=== PATIENT | female | born 1935 | race African-American/Black ===

== ENCOUNTER 2016-03-08 15:35 | Inpatient (IN) | payer OTHER, MEDICARE ==
[~2016-03-08] VITALS: Ht 162.6 cm; Wt 56.8 kg
[~2016-03-08 15:35] MED LIST: AMLO10 PO; AZOP1SUS BOTH EYES; DILT-XR PO; GLUCTAB PO; LORT5TAB PO; LOSA25TA31 PO; PROT40TA PO; ST JTAB PO; TOBRA.3%O LEFT EYE; ZOVI800T13 PO
[2016-03-08 15:38] VITALS: BP 189/83; PULSE 73; RESP 12; TEMP 97.9; O2SAT 94
[2016-03-08 16:33] VITALS: BP 160/72; PULSE 15; PULSE 72; RESP 15; RESP 16; O2SAT 98
--- NOTE | 2016-03-08 17:20 | PD ---
HPI Chief Complaint: Diabetic Time Seen by Provider: 17:12 Travel History International Travel<30 days: No Contact w/Intl Traveler<30days: No Traveled to known affect area: No History of Present Illness HPI Patient is a 80-year-old female with history of diabetes, CAD, hypertension presenting with chief complaint of dizziness. She reports multiple complaints last 2 days that she correlates to her glucose and elevated blood pressure. She states she has been unsteady on her feet and feels lightheaded like she might pass out, denies syncope. This does seem to be related to positional change. She feels like when she walks she tends to lean towards the right however she has opacity in her left thigh from shingles chronically which she thinks is related. She denies vertiginous-like symptoms, nausea and vomiting. She's had 2 episodes of brief nonexertional left-sided chest pain today which she denies is exertional. She denies fever, cough and shortness of breath. She takes long-acting insulin at night since her last 85. This morning it was 89 and she took it that she felt bad and states it was 270. She did not take additional insulin however glucose here is 89 by fingerstick. She has been compliant with her blood pressure medicines states blood pressure is 170/110 when she felt dizzy as well. She denies any current symptoms but states when she first arrived at the ED she was lightheaded. PFSH Past Medical History Arthritis: Yes Anxiety: Yes Cancer: Yes (POSSIBLE OVARIAN CANCER) Cardiovascular Problems: Yes High Cholesterol: Yes Diabetes: Yes Patient Takes Glucophage: No Endocrine: Yes (PARATHYROID DISEASE) GERD: Yes Genitourinary: Yes Hypertension: Yes Immune Disorder: No Kidney Stones: Yes Musculoskeletal: Yes Neurologic: Yes (SLOW BLEED TO LEFT HEAD) Psychiatric: Yes Shingles: Yes ?: Not Past Surgical History Appendectomy: Yes Cardiac Surgery: Yes (CABG 1997) Cholecystectomy: Yes Coronary Artery Bypass Graft: Yes Genitourinary Surgery: Yes (KIDNEY STONE REMOVED) Gynecologic Surgery: Yes (HYSTERECTOMY 1973) Hysterectomy: Yes Social History Alcohol Use: No Tobacco Use: No Substance Use: No Allergies-Medications (Allergen,Severity, Reaction): Coded Allergies: Penicillin (Verified Allergy, Severe, Rash, SOB, 03/08/16) Reported Meds & Prescriptions Reported Meds & Active Scripts Active Reported Aspirin Adult Low Strength (Aspirin) 81 Mg Tabdr 81 Mg PO DAILY Stool Softener (Docusate Sodium) 100 Mg Cap 1 Cap PO DAILY Tobrex Opth Oint (Tobramycin Sulfate) 0.3 % Oint 1 Applic LEFT EYE TID Dorzolamide-Timolol Opth Drops 22.3-6.8 Mg/Ml Soln 1 Drop LEFT EYE BID Travatan Z Opth Drops (Travoprost) 0.004 % Soln 1 Drop EACH EYE HS Gabapentin 100 Mg Cap 100 Mg PO TID Nitrostat SL (Nitroglycerin) 0.4 Mg Subl 0.4 Mg SL DIRECTED PRN 1 tablet under the tongue as needed for chest pain. Repeat every 5 minutes for a total of 3 DOSES or call 911 if NO relief. Nitro-Dur Patch 24 HR (Nitroglycerin) 0.1 Mg/Hr Patch 0.1 Mg T-DERMAL DAILY Toprol XL (Metoprolol Succinate) 25 Mg Tab 25 Mg PO DAILY Tizanidine (Tizanidine HCl) 4 Mg Tab 4 Mg PO HS Pantoprazole (Pantoprazole Sodium) 40 Mg Tab 40 Mg PO DAILY Metformin (Metformin HCl) 500 Mg Tab 500 Mg PO BID With meals Lovastatin 40 Mg Tab 40 Mg PO BID Lasix (Furosemide) 20 Mg Tab 20 Mg PO DAILY Amlodipine (Amlodipine Besylate) 10 Mg Tab 10 Mg PO DAILY Fosamax (Alendronate Sodium) 70 Mg Tab 70 Mg PO WEEKLY Review of Systems Except as stated in HPI: all other systems reviewed are Neg Physical Exam Narrative GENERAL: Well-developed and well-nourished adult female in no acute distress. SKIN: Warm and dry. Good turgor without tenting. HEAD: Normocephalic and atraumatic. EYES: Right pupil 4 mm and reactive. Left cornea has opacity overlying the pupil. EOMI bilaterally. No injection or icterus present. No proptosis. Lids without edema or erythema. ENT: Buccal mucosa pink and moist. Oropharynx free of erythema, tonsillar hypertrophy, masses, swelling, asymmetry and exudates. Uvula midline and airway patent. NECK: Supple, no midline tenderness, crepitus or step-offs. Trachea midline, no JVD. No cervical or facial lymphadenopathy. CARDIOVASCULAR: Regular rate and rhythm 2/6 early systolic ejection murmur heard best at the right upper sternal border but throughout the precordium. No rubs, clicks or gallops. Radial and posterior tibial pulses 2+ bilaterally. Trace pedal edema bilaterally. RESPIRATORY: Clear to auscultation bilaterally with symmetrical rise and fall, no distress or use of accessory muscles. GASTROINTESTINAL: Non-tender, non-distended. Normal bowel sounds all 4 quadrants. No masses or organomegaly present. MUSCULOSKELETAL: Patient freely moving all four extremities spontaneously. Extremities without clubbing, cyanosis, or edema. No obvious deformities. NEUROLOGIC: CN II-XII grossly intact. Awake and alert. Negative pronator drift. Maciel and accurate finger to nose testing bilaterally. Strength 5/5 bilateral shoulder flexion, shoulder extension, shoulder abduction, shoulder adduction, elbow flexion, elbow extension. Sensation intact and strength 5/5 over radial, median, and ulnar nerve distributions bilaterally.Sensation intact L2-S2 bilaterally. Strength 5/5 in hip flexion, hip extension, knee flexion, knee extension, plantar flexion, dorsiflexion bilaterally. Bilateral biceps, brachioradialis, patellar and Achilles DTRs 2+.Normal speech. PSYCHIATRIC: Appropriate mood and affect; insight and judgment normal. Data Data Last Documented VS Vital Signs Date Time Temp Pulse Resp B/P Pulse Ox O2 Delivery O2 Flow Rate FiO2 03/08/16 18:45 69 15 174/67 67 16 184/83 03/08/16 18:40 97 Room Air 03/08/16 15:38 97.9 Orders Complete Blood Count With Diff (03/09/16 06:00) Prothrombin Time / Inr (Pt) (03/08/16 15:44) Electrocardiogram (03/08/16 15:44) Comprehensive Metabolic Panel (03/08/16 16:05) B-Type Natriuretic Peptide (03/08/16 16:52) Chest, Single Ap (03/08/16 17:08) Ecg Monitoring (03/08/16 17:08) Bilateral Bp Monitoring (03/08/16 17:08) Iv Access Insert/Monitor (03/08/16 17:08) Urinalysis - C+S If Indicated (03/08/16 17:08) Ct Brain W/O Iv Contrast(Rout) (03/08/16 17:11) Orthostatic Vital Signs (03/08/16 17:11) Magnesium (Mg) (03/08/16 16:55) Troponin I (03/08/16 16:55) Complete Blood Count With Diff (03/08/16 18:10) Amlodipine (Norvasc) (03/08/16 18:15) Admit Order (Ed Use Only) (03/08/16 18:39) Labs Laboratory Tests Test 03/08/16 16:55 White Blood Count 32.0 TH/MM3 Red Blood Count 2.90 MIL/MM3 Hemoglobin 9.1 GM/DL Hematocrit 29.2 % Mean Corpuscular Volume 100.7 FL Mean Corpuscular Hemoglobin 31.5 PG Mean Corpuscular Hemoglobin 31.3 % Concent Red Cell Distribution Width 17.2 % Platelet Count 86 TH/MM3 Mean Platelet Volume 10.1 FL Neutrophils (%) (Auto) % Lymphocytes (%) (Auto) % Monocytes (%) (Auto) % Eosinophils (%) (Auto) % Basophils (%) (Auto) % Neutrophils # (Auto) TH/MM3 Lymphocytes # (Auto) TH/MM3 Monocytes # (Auto) TH/MM3 Eosinophils # (Auto) TH/MM3 Basophils # (Auto) TH/MM3 CBC Comment AUTO DIFF Prothrombin Time 10.7 SEC Prothromb Time International 1.0 RATIO Ratio Sodium Level 141 MEQ/L Potassium Level 4.2 MEQ/L Chloride Level 107 MEQ/L Carbon Dioxide Level 26.8 MEQ/L Anion Gap 7 MEQ/L Blood Urea Nitrogen 14 MG/DL Creatinine 0.85 MG/DL Estimat Glomerular Filtration 77 ML/MIN Rate Random Glucose 102 MG/DL Calcium Level 10.5 MG/DL Magnesium Level 2.1 MG/DL Total Bilirubin 0.6 MG/DL Aspartate Amino Transf 24 U/L (AST/SGOT) Alanine Aminotransferase 20 U/L (ALT/SGPT) Alkaline Phosphatase 129 U/L Troponin I 0.11 NG/ML B-Type Natriuretic Peptide 321 PG/ML Total Protein 7.5 GM/DL Albumin 3.1 GM/DL [facility] Medical Decision Making Medical Screen Exam Complete: Yes Emergency Medical Condition: Yes Interpretation(s) EKG: Sinus rhythm with rate of 67 with first-degree AV block. Otherwise normal intervals. Normal axis. Patient has inverted T waves in leads V2, V4, V5, V6 and flattened T waves in V3. This is new when compared to 2010 EKG. Laboratory Tests Test 03/08/16 16:55 Prothrombin Time 10.7 SEC (9.8-11.6) Prothromb Time International 1.0 RATIO Ratio Sodium Level 141 MEQ/L (136-145) Potassium Level 4.2 MEQ/L (3.5-5.1) Chloride Level 107 MEQ/L (98-107) Carbon Dioxide Level 26.8 MEQ/L (21.0-32.0) Anion Gap 7 MEQ/L (5-15) Blood Urea Nitrogen 14 MG/DL (7-18) Creatinine 0.85 MG/DL (0.50-1.00) Estimat Glomerular Filtration 77 ML/MIN (>89) Rate Random Glucose 102 MG/DL (74-106) Calcium Level 10.5 MG/DL (8.5-10.1) Magnesium Level 2.1 MG/DL (1.5-2.5) Total Bilirubin 0.6 MG/DL (0.2-1.0) Aspartate Amino Transf 24 U/L (15-37) (AST/SGOT) Alanine Aminotransferase 20 U/L (10-53) (ALT/SGPT) Alkaline Phosphatase 129 U/L (45-117) Troponin I 0.11 NG/ML (0.02-0.05) B-Type Natriuretic Peptide 321 PG/ML (0-100) Total Protein 7.5 GM/DL (6.4-8.2) Albumin 3.1 GM/DL (3.4-5.0) Differential Diagnosis Hypoglycemia versus hyperglycemia versus hypertensive urgency versus CVA versus ACS versus CHF Narrative Course Patient is a 1-year-old female with a history of diabetes, CAD. Hypertension presenting with multiple complaints. She states that today she has felt tired, had presyncopal episodes which did appear to be positional, has an leaning towards the right when walking and sensory episodes of brief nonexertional chest pain earlier. She is on nitroglycerin patch. She denies any fever or infectious symptoms or dyspnea. She states her blood pressure was elevated and her glucose was originally 89 and then 270 this morning which caused her symptoms as well. Glucose 89 by fingerstick. Blood pressure 160/70s. Is a history of intracranial bleed per the chart, is on daily aspirin but not on anticoagulants. Ordered CT of the head, chest x-ray, EKG and labs. EKG does not show any ST elevation but does show some T-wave inversion and flattening. Chest x-ray and CT of the chest unremarkable other than borderline cardiomegaly. Troponin elevated at 0.11. Systolic was 183 on a repeat BP alert amlodipine 5 mg however repeat blood pressure was in the 150s systolic. Patient has been asymptomatic while here. Patient was discussed with Dr. Tejada who agrees that she should be admitted. Report was given to Dr. Todd who accepted the admission. There was a issue from labs ordered and triage/ protocol and the CBC was very delayed and returning. Abdomen the patient had been admitted to CBC did finally results and shows a WBC of 32, platelets 86, H& H 9.1/29.2. Patient does have a history of anemia and last labs in 2010 show a chronic leukocytosis but no diagnosis. I went to speak with the patient and her daughter had arrived fortunately and states that she sees Dr. Lynn and has a diagnosis of lymphoma, has declined chemotherapy. She states she was in [facility] on [address]. We are to be to obtain records. UA pending, added lactic acid and blood cultures. Spoke with Dr. Lane who took over for Dr. Todd so she was aware of this development. This patient is afebrile, nontoxic, does not have a tachycardia or systemic complaints will let the admitting physician to determine if antibiotics are warranted unless urinary lactic acid comes back and indicates a need. Diagnosis Primary Impression: Weakness generalized Additional Impression: Elevated troponin Admitting Information Admitting Physician Requests: Admit Condition: Stable Giovanny Cleveland III Mar 08, 2016 17:19
[2016-03-08 17:27] LABS: PROTHROMBIN TIME - PATIENT 10.7 SEC (9.8-11.6)
[2016-03-08 17:38] LABS: ALT (GPT) 20 U/L (10-53); ANION GAP 7 MEQ/L (5-15); AST (GOT) 24 U/L (15-37); BICARBONATE 26.8 MEQ/L (21.0-32.0); BLOOD UREA NITROGEN 14 MG/DL (7-18); CHLORIDE 107 MEQ/L (98-107); GLOMERULAR FILTRATION RATE 77 ML/MIN (>89); MAGNESIUM 2.1 MG/DL (1.5-2.5); POTASSIUM 4.2 MEQ/L (3.5-5.1); SODIUM (NA) 141 MEQ/L (136-145)
[2016-03-08 17:42] LABS: ALKALINE PHOSPHATASE 129 U/L (45-117); TOTAL BILIRUBIN ADULT 0.6 MG/DL (0.2-1.0)
--- NOTE | 2016-03-08 17:43 | RADRPT ---
EXAM DATE/TIME: 03/08/2016 17:12 [facility] COMPARISON: No previous studies available for comparison. INDICATIONS : Chest pain and general weakness. MEDICAL HISTORY : Hypertension. Diabetes mellitus type II. SURGICAL HISTORY : CABG. ENCOUNTER: Initial ACUITY: 2 days PAIN SCORE: 2/10 LOCATION: Bilateral chest FINDINGS: Trace bibasilar atelectasis. No lobar consolidation. No pleural effusion or pneumothorax. Borderline cardiomegaly. Thoracic aorta is tortuous and atherosclerotic. Patient has had previous med opal sternotomy and CABG. CONCLUSION: Trace bibasilar atelectasis and borderline cardiomegaly. Previous CABG. Giovanny Belcher MD on March 08, 2016 at 17:41 Board Certified Radiologist. This report was verified electronically.
--- NOTE | 2016-03-08 17:44 | RADRPT ---
EXAM DATE/TIME: 03/08/2016 17:33 [facility] COMPARISON: CT BRAIN W/O CONTRAST, January 12, 2011, 15:37. INDICATIONS : Dizziness. RADIATION DOSE: 38.13 CTDIvol (mGy) MEDICAL HISTORY : Cerebrovascular disease. Hypertension. Diabetes mellitus type 2.Ovarian cacner SURGICAL HISTORY : None. ENCOUNTER: Initial ACUITY: 1 day PAIN SCALE: 2/10 LOCATION: cranial TECHNIQUE: Multiple contiguous axial images were obtained of the head. Using automated exposure control and adj ustment of the mA and/or kV according to patient size, radiation dose was kept as low as reasonably a chievable to obtain optimal diagnostic quality images. FINDINGS: CEREBRUM: The ventricles are normal for age. No evidence of midline shift, mass lesion, hemorrhage or acute in farction. No extra-axial fluid collections are seen. Atrophy again noted. POSTERIOR FOSSA: The cerebellum and brainstem are intact. The 4th ventricle is midline. The cerebellopontine angle i s unremarkable. EXTRACRANIAL: The visualized portion of the orbits is intact. SKULL: The calvaria is intact. No evidence of skull fracture. CONCLUSION: No acute intracranial abnormality. Giovanny Belcher MD on March 08, 2016 at 17:42 Board Certified Radiologist. This report was verified electronically.
[2016-03-08] MEDS ORDERED: LOVA40TA PO (17:59)
[2016-03-08] MEDS ORDERED: DORZ2SOL15 LEFT EYE (17:59)
[2016-03-08] MEDS ORDERED: FURO1TAB62 PO (17:59)
[2016-03-08] MEDS ORDERED: FOSA70TA PO (17:59)
[2016-03-08] MEDS ORDERED: GABA100C4 PO (17:59)
[2016-03-08] MEDS ORDERED: TOPR25TA PO (17:59)
[2016-03-08] MEDS ORDERED: TIZA4TAB PO (17:59)
[2016-03-08] MEDS ORDERED: AMLO10TA2 PO (17:59)
[2016-03-08] MEDS ORDERED: METF500T PO (17:59)
[2016-03-08] MEDS ORDERED: TRAV0.00 EACH EYE (17:59)
[2016-03-08] MEDS ORDERED: NITR0.4S SL (17:59)
[2016-03-08] MEDS ORDERED: ASPI1TAB91 PO (17:59)
[2016-03-08] MEDS ORDERED: NITR0.1D T-DERMAL (17:59)
[2016-03-08] MEDS ORDERED: PANT40TA3 PO (17:59)
[2016-03-08] MEDS ORDERED: STOO100C PO (17:59)
[2016-03-08] MEDS ORDERED: TOBR.3%O LEFT EYE (17:59)
[2016-03-08] MEDS ORDERED: amLODIPine BESYLATE 5 MG TAB PO ONE (18:15)
[2016-03-08 18:40] VITALS: BP_SYST 153; BP_SYST 162; BP_DIAS 71; BP_DIAS 74; BP_DIAS 81; PULSE 67; PULSE 68; RESP 15; RESP 16; O2SAT 97
[2016-03-08 18:45] VITALS: BP_SYST 174; BP_SYST 184; BP_DIAS 67; BP_DIAS 83; RESP 15; RESP 16
[2016-03-08 18:50] LABS: HEMATOCRIT 29.2 % (35.0-46.0); MEAN CELL VOLUME 100.7 FL (80.0-100.0); MEAN CORPUSCULAR HEMOGLOBIN 31.5 PG (27.0-34.0); MEAN CORPUSCULAR HGB CONC 31.3 % (32.0-36.0); PLATELET COUNT 86 TH/MM3 (150-450); RED CELL DISTRIBUTION WIDTH 17.2 % (11.6-17.2)
[2016-03-08 18:52] LABS: HEMO FLAGS AUTO DIFF
[2016-03-08 20:12] LABS: BLOOD, URINE TRACE (NEG); COMMENT (UR) CULTURE INDICATED; CULTURE IF INDICATED CULTURE INDICATED; GLUCOSE,URINE NEG (NEG); KETONE, URINE NEG (NEG); NITRITE,URINE NEG (NEG); URINE COLOR LIGHT-YELLOW (YELLW/STRAW)
[2016-03-08] MEDS ORDERED: ONDANSETRON HCL 4 MG/2 ML VIAL IVP PRN (20:15)
[2016-03-08] MEDS ORDERED: GLUCAGON 1 MG/ML VIAL OTHER PRN (20:15)
[2016-03-08] MEDS ORDERED: SODIUM CHLORIDE 0.9% FLUSH 5 ML FLUSH FLUSH PRN (20:15)
[2016-03-08] MEDS ORDERED: DEXTROSE 50% IN WATER 50 ML VIAL(D50) IV PUSH PRN (20:15)
[2016-03-08] MEDS ORDERED: NALOXONE HCL 0.4 MG/ML AMP IV PRN (20:15)
[2016-03-08 20:30] VITALS: BP 150/70; PULSE 62; RESP 16; O2SAT 99
[2016-03-08] MEDS: INSULIN ASPART SUPPLEMENTAL SCALE SQ SCH (20:43)
[2016-03-08] MEDS ORDERED: LEVOFLOXACIN 750 MG TAB PO ONE (21:00)
[2016-03-08 21:07] LABS: CORRECTED NUCLEATED RBC 1 /100 WBC (0-0); EOSINOPHILS 1 % (0-4); NEUTROPHIL # MANUAL DIFF 2.9 TH/MM3 (1.8-7.7); PLATELET ESTIMATE SMEAR LOW (NORMAL); PLATELET MORPHOLOGY NORMAL (NORMAL); POLYS (SEG NEUTROPHILS) 9 % (16-70); WBC DIFF SAMPLE 100
[2016-03-08 21:08] LABS: SCAN/DIFF FINAL DIFF MANUAL; SMUDGE CELLS PRESENT PRESENT
[2016-03-08 21:10] VITALS: BP 154/71; PULSE 65; RESP 18; TEMP 97.8; O2SAT 94
--- NOTE | 2016-03-08 22:09 | HHI.HP ---
HPI Service [facility] Primary Care Physician Fadumo Sagastume MD Admission Diagnosis WEAKNESS, ELEVATED TROPONIN Diagnoses: Chief Complaint: Weakness, dizziness, shortness of breath Travel History International Travel<30 Days: No Contact w/Intl Traveler <30 Da: No Traveled to Known Affected Are: No History of Present Illness History from patient with her daughter at the bedside. Patient reported that for the past few days, she has been having wooziness and dizziness. She states she did not fall. She did not pass out. However she felt as if she would. She denies vomiting but was nauseous. However her main complaint is that of shortness of breath. Daughter at the bedside stated that this shortness of breath has been going on for a few weeks now. Patient denies fever. Denies cough. Reports of peripheral edema. Patient also states that she finally decided to come to hospital because her blood sugars have been high. 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 She also reports of high blood pressure at home. Again stated her blood pressure in the morning is around 120 systolic. However as the day goes by it was 200s systolic. Daughter at the bedside also stated that patient was diagnosed with lymphoma by Dr. Lynn. He did obtain bone marrow biopsy. However there was no treatment needed at that time. He now has left the [facility] practice and is only practicing at [place] and he has referred her to see [facility]. stated patient for the past few weeks is also becoming more symptomatic with shortness of breath, weakness, night sweats. She is unsure whether the actual disease is lymphoma or CLL. Patient otherwise lives by herself. She usually gets her meals cooked by her daughter on a weekly basis. Otherwise she still does her own laundry. Ambulates without assistance. Review of Systems Constitutional: COMPLAINS OF: Fatigue, Dizziness, Night Sweats, DENIES: Diaphoretic episodes, Fever, Weight gain, Weight loss, Chills Respiratory: COMPLAINS OF: Shortness of breath, DENIES: Apneas, Cough, Wheezing, Hemoptysis, Sputum production Cardiovascular: COMPLAINS OF: Dyspnea on Exertion, Lower Extremity Edema, Orthopnea, DENIES: Chest pain, Palpitations, Syncope, PND Gastrointestinal: DENIES: Abdominal pain, Black stools, Bloody stools, Constipation, Diarrhea, Nausea, Vomiting Genitourinary: DENIES: Urinary frequency, Urinary incontinence, Urgency, Hematuria, Dysuria, Nocturia Hematologic/lymphatic: DENIES: Bruising Neurologic: DENIES: Abnormal gait, Headache, Localized weakness, Paresthesias, Seizures, Speech Problems, Tremor, Poor Balance Past Family Social History Past Medical History Hypertension Diabetes CADstatus post CABG in 1997 Carotid artery stenosis History of lymphoma versus leukemia. 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 History of renal stones History of left eye damage from herpes zoster ophthalmicus History of and complete bladder emptying Past Surgical History Coronary angiogram CABG Cholecystectomy Appendectomy Hysterectomy Reported Medications Patient's medications list are reviewed. Patient also has a list with her. This was reviewed. Allergies: Coded Allergies: Penicillin (Verified Allergy, Severe, Rash, SOB, 03/08/16) Family History Denies family history of any medical issues that she knows of Social History Denies smoking. Denies any alcohol abuse or drug abuse. Lives by herself. Daughter would cook for her and bringing food. Ambulatory without assistance. Physical Exam Vital Signs Vital Signs Date Time Temp Pulse Resp B/P Pulse Ox O2 Delivery O2 Flow Rate FiO2 03/08/16 20:30 62 16 150/70 99 Room Air 03/08/16 18:45 69 15 174/67 67 16 184/83 03/08/16 18:40 68 15 153/71 97 Room Air 162/74 03/08/16 18:40 67 16 153/81 97 Room Air 03/08/16 16:36 22 97 Room Air 03/08/16 16:33 72 15 160/72 98 Room Air 03/08/16 15:38 97.9 73 12 189/83 94 Room Air Physical Exam GENERAL: This is a well-nourished, well-developed patient, in no apparent distress. SKIN: No rashes, ecchymoses or lesions. Cool and dry. HEAD: Atraumatic. Normocephalic. No temporal or scalp tenderness. EYES: No scleral icterus. No injection or drainage. ENT: Nose without bleeding, purulent drainage or septal hematoma. Airway patent. NECK: Trachea midline. No JVD Supple, nontender, no meningeal signs. CARDIOVASCULAR: Regular rate and rhythm without murmurs, gallops, or rubs. RESPIRATORY: Bilateral basilar crepitations. GASTROINTESTINAL: Abdomen soft, non-tender, nondistended. MUSCULOSKELETAL: Extremities without clubbing, cyanosis, or edema. . No calf tenderness NEUROLOGICAL: Awake and alert. Motor and sensory grossly within normal limits. Normal speech. Laboratory Laboratory Tests Test 03/08/16 03/08/16 03/08/16 16:55 19:46 20:03 White Blood Count 32.0 Red Blood Count 2.90 Hemoglobin 9.1 Hematocrit 29.2 Mean Corpuscular Volume 100.7 Mean Corpuscular Hemoglobin 31.5 Mean Corpuscular Hemoglobin 31.3 Concent Red Cell Distribution Width 17.2 Platelet Count 86 Mean Platelet Volume 10.1 Neutrophils (%) (Auto) Lymphocytes (%) (Auto) Monocytes (%) (Auto) Eosinophils (%) (Auto) Basophils (%) (Auto) Neutrophils # (Auto) Lymphocytes # (Auto) Monocytes # (Auto) Eosinophils # (Auto) Basophils # (Auto) CBC Comment AUTO DIFF Differential Total Cells 100 Counted Neutrophils % (Manual) 9 Lymphocytes % 90 Eosinophils % 1 Neutrophils # (Manual) 2.9 Nucleated Red Blood Cells 1 Differential Comment FINAL DIFF MANUAL Smudge Cells PRESENT Platelet Estimate LOW Platelet Morphology Comment NORMAL Red Cell Morphology Comment NORMAL Prothrombin Time 10.7 Prothromb Time International 1.0 Ratio Sodium Level 141 Potassium Level 4.2 Chloride Level 107 Carbon Dioxide Level 26.8 Anion Gap 7 Blood Urea Nitrogen 14 Creatinine 0.85 Estimat Glomerular Filtration 77 Rate Random Glucose 102 Calcium Level 10.5 Magnesium Level 2.1 Total Bilirubin 0.6 Aspartate Amino Transf 24 (AST/SGOT) Alanine Aminotransferase 20 (ALT/SGPT) Alkaline Phosphatase 129 Troponin I 0.11 B-Type Natriuretic Peptide 321 Total Protein 7.5 Albumin 3.1 Lactic Acid Level 1.3 Urine Color LIGHT-YELLOW Urine Turbidity CLEAR Urine pH 7.0 Urine Specific [place] 1.004 Urine Protein NEG Urine Glucose (UA) NEG Urine Ketones NEG Urine Occult Blood TRACE Urine Nitrite NEG Urine Bilirubin NEG Urine Urobilinogen LESS THAN 2.0 Urine Leukocyte Esterase LARGE Urine RBC 1 Urine WBC 39 Microscopic Urinalysis Comment CULTURE INDICATED Date/Time Procedure Status Source Growth 03/08/16 20:03 Urine Culture Received Urine Clean Catch Pending 03/08/16 19:46 Aerobic Blood Culture Received Blood Peripheral Pending 03/08/16 19:46 Anaerobic Blood Culture Received Blood Peripheral Pending Result Diagram: 03/08/16 1655 03/08/16 1655 Imaging Last [address] 03/08/16 1711 Signed Impressions: Service Date/Time: Tuesday, March 08, 2016 17:33 - CONCLUSION: No acute intracranial abnormality. Giovanny Belcher MD Chest X-Ray 03/08/16 1708 Signed Impressions: Service Date/Time: Tuesday, March 08, 2016 17:12 - CONCLUSION: Trace bibasilar atelectasis and borderline cardiomegaly. Previous CABG. Giovanny Belcher MD Assessment and Plan Assessment and Plan Impression: Near syncopelikely due to generalized weakness. However given that she has carotid artery disease previously with CABG, will need to rule out neurocardiogenic syncope. Dyspnea on exertion/peripheral edemalikely from CHF. Possible underlying CLL contributing to this as well. Elevated troponinnonspecific. We'll rule out ACS. Plan: Serial cardiac enzymes and EKGs. Echocardiogram. Carotid sono. 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 Consult oncology regarding CLL versus lymphoma workup since patient may be getting symptoms now. However patient is unsure whether she would like treatment at this point though. Start on Lasix 20 mg IV every 12 hours. Patient's chest x-raypersonally reviewed. Bilateral mild pulmonary venous congestion. No specific infiltrates. EKGsreviewed. No acute ST-T changes from baseline. Resume her home meds. DVT prophylaxiswith SCD. Will obtain Doppler ultrasound of lower extremity to rule out DVT prior to applying SCDs since patient is complaining of bilateral lower extremity edema but more so on the left side. Discussed Condition With Patient, ER physician, patient's daughter Physician Certification 2 Midnight Certification Type: Admission for Inpatient Services Order for Inpatient Services The services are ordered in accordance with Medicare regulations or non- Medicare payer requirements, as applicable. In the case of services not specified as inpatient-only, they are appropriately provided as inpatient services in accordance with the 2-midnight benchmark. Estimated LOS (days): 2 days is the estimated time the patient will need to remain in the hospital, assuming treatment plan goals are met and no additional complications. Post-Hospital Plan: Sandro Molina MD Mar 08, 2016 22:09
[2016-03-08] MEDS ORDERED: DORZOLAMIDE/TIMOLOL OPTH SOLN 10 ML BTL LEFT EYE ONE (22:30)
[2016-03-08] MEDS ORDERED: FUROSEMIDE 20 MG/2 ML VIAL IV PUSH ONE (22:30)
[2016-03-08] MEDS: TOBRAMYCIN SULFATE 0.3% OPTH OINT 3.5 GM TUBE LEFT EYE ONE (22:30)
[2016-03-08] MEDS: TOBRAMYCIN SULFATE 0.3% OPTH OINT 3.5 GM TUBE LEFT EYE SCH (23:03)
[2016-03-08] MEDS: SODIUM CHLORIDE 0.9% FLUSH 5 ML FLUSH FLUSH SCH (23:06)
[2016-03-08] MEDS: LATANOPROST 0.005% OPHT SOLN 2.5 ML BTL EACH EYE SCH (23:07)
--- NOTE | 2016-03-09 00:03 | RADRPT ---
EXAM DATE/TIME: 03/08/2016 22:57 [facility] COMPARISON: No previous studies available for comparison. INDICATIONS : Bilateral leg swelling. MEDICAL HISTORY : Hypercholesterolemia. Hypertension. Gastroesophageal reflux disease. Syncope. Kidney stones. Arthriti s. Parathyroid disease. Diabetes. Anxiety. Ovarian cancer. Shingles. SURGICAL HISTORY : CABGAppendectomy. Cholecystectomy.Hysterectomy. ENCOUNTER: Initial ACUITY: 1 day PAIN SCORE: 0/10 LOCATION: Bilateral legs. TECHNIQUE: Venous ultrasound of the left and right leg was performed from the inguinal ligament to the proximal calf. Real-time, color Doppler and spectral tracing, compression and augmentation techniques were us ed. FINDINGS: RIGHT LEG: There is normal compressibility of the deep venous system from the inguinal region to the proximal ca lf. No echogenic clot is seen in the lumen of the common femoral, femoral, popliteal, and posterior tibial veins. There is a normal response of the venous system to proximal and distal augmentation an d respiration. LEFT LEG: There is normal compressibility of the deep venous system from the inguinal region to the proximal ca lf. No echogenic clot is seen in the lumen of the common femoral, femoral, popliteal, and posterior tibial veins. There is a normal response of the venous system to proximal and distal augmentation an d respiration. CONCLUSION: Normal examination. Troy Ignacio Jr., MD on March 08, 2016 at 23:59 Board Certified Radiologist. This report was verified electronically.
--- NOTE | 2016-03-09 00:13 | RADRPT ---
EXAM DATE/TIME: 03/08/2016 23:15 [place] COMPARISON: No previous studies available for comparison. INDICATIONS : Dizziness. MEDICAL HISTORY : Hypercholesterolemia. Gastroesophageal reflux disease. Hypertension. Syncope. Kidney stones. Arthriti s. Parathyroid disease. Diabetes. Anxiety. Ovarian cancer. Shingles. SURGICAL HISTORY : CABG. Appendectomy. Cholecystectomy. Hysterectomy. ENCOUNTER: Initial ACUITY: 1 day PAIN SCORE: 0/10 LOCATION: Bilateral neck PEAK SYSTOLIC VELOCITIES (cm/sec): ICA/CCA RATIO: Right: 1.3 Left: 1.0 ICA: Right: 111 Left: 79 CCA: Right: 89 Left: 80 ECA: Right: 80 Left: 313 VERTEBRAL: Right: 135 antegrade Left: 19 antegrade Elevated flow velocities and ICA/CCA ratios have been found to correlate with increased degrees of vessel stenosis, calculated as percentage of diameter relative to a normal segment of distal ICA/CCA FINDINGS: RIGHT CAROTID: Scattered calcified plaque throughout the common carotid and proximal ICA. No significant stenosis is visualized. The waveforms are within normal limits. LEFT CAROTID: Scattered calcified plaque throughout the common carotid and proximal ICA. No significant stenosis is visualized. The waveforms are within normal limits. VERTEBRAL ARTERIES: Antegrade flow is seen in both vertebral arteries. MISCELLANEOUS: None. CONCLUSION: 1. Calcified atherosclerotic plaque without hemodynamically significant stenosis involving either car otid artery. 2. Antegrade flow involving both vertebral arteries. Troy Ignacio Jr., MD on March 09, 2016 at 0:10 Board Certified Radiologist. This report was verified electronically.
[2016-03-09 01:34] VITALS: BP 144/65; PULSE 62; RESP 18; TEMP 97.6; O2SAT 95
[2016-03-09 05:50] VITALS: BP 153/72; PULSE 67; RESP 18; TEMP 97.6; O2SAT 96
[2016-03-09] MEDS: INSULIN ASPART SUPPLEMENTAL SCALE SQ SCH ×4 (07:00→21:00)
[2016-03-09 07:06] LABS: HEMATOCRIT 26.5 % (35.0-46.0); MEAN CELL VOLUME 99.9 FL (80.0-100.0); MEAN CORPUSCULAR HEMOGLOBIN 31.6 PG (27.0-34.0); MEAN CORPUSCULAR HGB CONC 31.6 % (32.0-36.0); PLATELET COUNT 73 TH/MM3 (150-450); RED BLOOD COUNT 2.65 MIL/MM3 (4.00-5.30); RED CELL DISTRIBUTION WIDTH 16.7 % (11.6-17.2); WHITE BLOOD COUNT 31.4 TH/MM3 (4.0-11.0)
[2016-03-09 07:19] LABS: HEMO FLAGS AUTO DIFF
[2016-03-09 07:32] LABS: BICARBONATE 25.9 MEQ/L (21.0-32.0); POTASSIUM 3.8 MEQ/L (3.5-5.1)
[2016-03-09 08:00] VITALS: BP 163/75; PULSE 61; RESP 20; TEMP 97.2; O2SAT 97
[2016-03-09] MEDS: DOCUSATE SODIUM 100 MG CAP PO SCH (08:10)
[2016-03-09] MEDS: GABAPENTIN 100 MG CAP PO SCH ×3 (08:10→17:13)
[2016-03-09] MEDS: NITROGLYCERIN 0.1 MG/HR PATCH T-DERMAL SCH (08:10)
[2016-03-09] MEDS: METOPROLOL SUCCINATE 25 MG EXTENDED RELEASE TAB PO SCH (08:10)
[2016-03-09] MEDS: PANTOPRAZOLE SOD 40 MG DELAYED RELEASE TAB PO SCH (08:10)
[2016-03-09] MEDS: PRAVASTATIN SOD 40 MG TAB PO SCH ×2 (08:10→21:46)
[2016-03-09] MEDS: DORZOLAMIDE/TIMOLOL OPTH SOLN 10 ML BTL LEFT EYE SCH ×2 (08:11→21:45)
[2016-03-09] MEDS: SODIUM CHLORIDE 0.9% FLUSH 5 ML FLUSH FLUSH SCH ×2 (08:11→21:45)
[2016-03-09] MEDS: ASPIRIN EC 81 MG TABEC PO SCH (08:11)
[2016-03-09] MEDS: TOBRAMYCIN SULFATE 0.3% OPTH OINT 3.5 GM TUBE LEFT EYE SCH ×3 (08:11→17:14)
[2016-03-09] MEDS ORDERED: FUROSEMIDE 20 MG/2 ML VIAL IV PUSH SCH (09:00)
[2016-03-09 09:22] LABS: NEUTROPHIL # MANUAL DIFF 1.3 TH/MM3 (1.8-7.7); PLATELET ESTIMATE SMEAR LOW (NORMAL); PLATELET MORPHOLOGY NORMAL (NORMAL); POLYS (SEG NEUTROPHILS) 4 % (16-70); SCAN/DIFF FINAL DIFF MANUAL; SMUDGE CELLS PRESENT PRESENT; WBC DIFF SAMPLE 100
[2016-03-09] MEDS: LISINOPRIL 10 MG TAB PO SCH (10:07)
[2016-03-09] MEDS: POTASSIUM CHLORIDE 10 MEQ CONTROLLED RELEASE TAB PO SCH ×2 (10:10→21:46)
--- NOTE | 2016-03-09 10:32 | MB ---
cc: LAMAR ROTHMAN MD DATE OF CONSULTATION 03/09/2016 REASON FOR CONSULTATION Evaluation of elevated troponin HISTORY OF PRESENT ILLNESS Romy Ramirez is an 80-year-old woman I have seen before in the office. She has a history of hypertensive heart disease. Her last echo in June showed a slight aortic valve gradient. It was very mild with left ventricular hypertrophy. Her last nuclear stress test showed only slight basal inferior ischemia and that was back in 2012. She has been treated medically. The patient was physically active up until three weeks ago at least able to do her household activities. She has been declining over the last two and half weeks. She was seen in the ER at [facility] before [place] and was treated for constipation, given some mag citrate. She comes in this time with complaints of dizziness. She has had spells where her blood pressure and her glucose both go up. I cannot elicit any chest pain from her. She has had some lower extremity edema, but mainly has been complaining of just generalized weakness. She is being followed by Dr. Cornelio Zamudio for either chronic lymphocytic leukemia or lymphoma, I am not sure which. MEDICATIONS She has been on: 1. A beta-yury and amlodipine, but not an RENATO inhibitor. 2. In the office, her metoprolol was 25 mg daily. 3. Her amlodipine was 10 mg daily 4. There was no Renato on board. 5. She is on a nitroglycerin patch 0.1 mg per hour. Here in the hospital she is receivin. Aspirin 2. Furosemide 20 mg IV b.i.d. 3. Metoprolol sustained release 25 mg 4. Nitroglycerin patch 0.1 mg 5. Insulin PAST MEDICAL HISTORY Includes: 1. Chronic abnormal EKG probably do the left ventricular hypertrophy 2. Alzheimer's disease 3. Anemia 4. Minimal aortic stenosis 5. Negative evaluation for carotid bruits even this admission as well 6. Coronary artery disease with bypass surgery May 23, 1997. 7. She has saphenous vein graft to the LAD, obtuse marginal branch and posterior descending artery branch for unstable angina. 8. Colon polyps 9. Type 2 diabetes 10. Diverticula of the intestine 11. Glaucoma 12. Hemorrhoids 13. Previous ophthalmic herpes zoster 14. Hyperlipidemia 15. Primary hyperparathyroidism 16. Essential hypertension 17. Chronic lymphocytic leukemia versus lymphoma. 18. Memory loss 19. Arthritis 20. Peripheral arterial disease PAST SURGICAL HISTORY Includes: 1. Appendectomy 2. Cholecystectomy 3. Bypass surgery 4. Hernia repair 5. Hysterectomy 6. Kidney stone removal ALLERGIES INCLUDE PENICILLIN. FAMILY HISTORY Positive for GA. SOCIAL HISTORY Former smoker, . REVIEW OF SYSTEMS Noncontributory PHYSICAL EXAMINATION This is an elderly white female resting comfortably in bed in no acute distress. VITAL SIGNS: Charted. HEENT: Exam is unremarkable. NECK: Supple. CHEST: Clear to auscultate. CARDIAC: Exam S1-S2 regular rate and rhythm with a 1-2/6 systolic flow murmur. I do not suspect significant aortic stenosis. ABDOMEN: Soft. EXTREMITIES: Reveal some wrinkling of the skin. There is no edema. Pedal pulses are reduced. NEUROLOGIC: She is alert and oriented. EKG shows sinus rhythm, LVH, LV strain type pattern, not that much different from her last EKG obtained in my office and concordant with the findings on her previous echo. Chest x-ray did not read out as heart failure, creatinine is 0.84, troponin is flat at 0.11, 0.11. CPK flat at 43 and 37. BNP is minimally elevated at 321. IMPRESSION The mildly elevated troponin might be explained by the known left ventricular hypertrophy she has. There are really no symptoms of acute coronary syndrome. She did have edema on admission. I do not know who much of this is due to amlodipine. She could have a component of acute diastolic heart failure on chest x-ray. It did not read out as heart failure. I am going to add low-dose RENATO inhibitor because her blood pressure is still elevated. I am not sure if there is a further oncological valve this admission. Overall, the feeling of weakness is not readily explained cardiac-tierney. Further therapy to be determined. MD HOLLY Caldwell/NATALIIA /10:00 AM /10:19 AM
--- NOTE | 2016-03-09 10:42 | HHI.PR ---
Subjective Remarks Follow-up near-syncope 03/09/16-patient seen and examined, no syncopal episodes since admission. Alert and oriented 3. No acute event overnight and currently afebrile. Objective Vitals Vital Signs Date Time Temp Pulse Resp B/P Pulse Ox O2 Delivery O2 Flow Rate FiO2 03/09/16 08:00 97.2 61 20 163/75 97 03/09/16 05:50 97.6 67 18 153/72 96 03/09/16 01:34 97.6 62 18 144/65 95 03/08/16 23:30 Room Air 03/08/16 21:10 97.8 65 18 154/71 94 03/08/16 20:30 62 16 150/70 99 Room Air 03/08/16 18:45 69 15 174/67 67 16 184/83 03/08/16 18:40 68 15 153/71 97 Room Air 162/74 03/08/16 18:40 67 16 153/81 97 Room Air 03/08/16 16:36 22 97 Room Air 03/08/16 16:33 72 15 160/72 98 Room Air 03/08/16 15:38 97.9 73 12 189/83 94 Room Air I/O 03/08/16 03/08/16 03/08/16 03/09/16 03/09/16 03/09/16 07:00 15:00 23:00 07:00 15:00 23:00 Intake Total 240 ml 0 ml Output Total 0 ml Balance 240 ml 0 ml Intake Oral 240 ml 0 ml Output Urine Total 0 ml # Voids 1 # Bowel Movements 0 0 Result Diagram: 03/09/16 0654 03/09/16 0654 Imaging Last Impressions Head CT 03/08/16 1711 Signed Impressions: Service Date/Time: Tuesday, March 08, 2016 17:33 - CONCLUSION: No acute intracranial abnormality. Giovanny Belcher MD Chest X-Ray 03/08/16 1708 Signed Impressions: Service Date/Time: Tuesday, March 08, 2016 17:12 - CONCLUSION: Trace bibasilar atelectasis and borderline cardiomegaly. Previous CABG. Giovanny Belcher MD Lower Extremity Ultrasound 03/08/16 0000 Signed Impressions: Service Date/Time: Tuesday, March 08, 2016 22:57 - CONCLUSION: Normal examination. Troy Ignacio Jr., MD Carotid Artery Ultrasound 03/08/16 0000 Signed Impressions: Service Date/Time: Tuesday, March 08, 2016 23:15 - CONCLUSION: 1. Calcified atherosclerotic plaque without hemodynamically significant stenosis involving either carotid artery. 2. Antegrade flow involving both vertebral arteries. Troy Ignacio Jr., MD Objective Remarks GENERAL: NAD SKIN: Warm and dry. HEAD: Normocephalic. EYES: No scleral icterus. No injection or drainage. NECK: Supple, trachea midline. No JVD or lymphadenopathy. CARDIOVASCULAR: Regular rate and rhythm without murmurs, gallops, or rubs. RESPIRATORY: Breath sounds equal bilaterally. No accessory muscle use. GASTROINTESTINAL: Abdomen soft, non-tender, nondistended. MUSCULOSKELETAL: No cyanosis, or edema. BACK: Nontender without obvious deformity. No CVA tenderness. A/P Problem List: (1) Near syncope ICD Code: R55 Status: Acute Assessment and Plan 80-year-old female with 1-Near syncopelikely due to generalized weakness. Workup in process to rule out neurocardiogenic syncope. Head CT with No acute intracranial abnormality. Carotid ultrasound without hemodynamically significant stenosis involving either carotid artery. 2-D echo pending. PT consult to treat for weakness 2-Dyspnea on exertion/peripheral edemalikely from CHF. 2-D echo pending, RON inhibitor added to patient regiment and continue current diuretics. 3-Elevated troponinnonspecific. ACS ruled out per protocol with serial cardiac enzyme. Appreciate input from cardiology and recommended medical management 4-History of CLL: Oncology consultation pending 5-Benign labile hypertension: Continue Norvasc 10 mg, lisinopril, Lopressor 6-UTI: On Levaquin 750 every 48H pending urine culture 7-Other chronic medical conditions: Continue current meds 8-Bilateral lower extremity pain: Doppler ruled out DVT DVT prophylaxis: Archie Paul MD Mar 09, 2016 10:42 treatment at this point though. Start on Lasix 20 mg IV every 12 hours. Patient's chest x-raypersonally reviewed. Bilateral mild pulmonary venous congestion. No specific infiltrates. EKGsreviewed. No acute ST-T changes from baseline. Resume her home meds. DVT prophylaxiswith SCD. Will obtain Doppler ultrasound of lower extremity to rule out DVT prior to applying SCDs since patient is complaining of bilateral lower extremity edema but more so on the left side Archie Todd MD Mar 09, 2016 10:42
[2016-03-09 12:00] VITALS: BP 107/58; PULSE 64; RESP 20; TEMP 97.9; O2SAT 96
[2016-03-09 16:00] VITALS: BP 111/55; PULSE 82; RESP 20; TEMP 98.3; O2SAT 97
--- NOTE | 2016-03-09 19:01 | EC ---
Study Study Date:03/09/2016 STUDY CONCLUSIONS SUMMARY - Left ventricle: The cavity size was normal. Systolic function was normal. The estimated ejection fraction was in the range of 55% to 60%. Doppler parameters are consistent with abnormal left ventricular relaxation (grade 1 diastolic dysfunction). - Aortic valve: Moderately calcified leaflets. There was mild stenosis. Valve area: 1.64cm^2 (Vmax). If LV function is below 40, please consider prescribing an ACEI or ARB or document rationale for non-use. PROCEDURE DATA STUDY STATUS: Elective. Procedure: Transthoracic echocardiography. Image quality was good. Scanning was performed from the parasternal, apical, and subcostal acoustic windows. Study completion: The patient tolerated the procedure well. Transthoracic echocardiography. M-mode, complete 2D, complete spectral Doppler, and color Doppler. Height: Height: 64in. Weight: Weight: 122.7lb. Body mass index: BMI: 21.1kg/m^2. Body surface area: BSA: 1.59m^2. Patient status: Inpatient. CARDIAC ANATOMY LEFT VENTRICLE: The cavity size was normal. Systolic function was normal. The estimated ejection fraction was in the range of 55% to 60%. Doppler parameters are consistent with abnormal left ventricular relaxation (grade 1 diastolic dysfunction). AORTIC VALVE: Moderately calcified leaflets. Doppler: There was mild stenosis. No significant regurgitation. Valve area: 1.64cm^2 (Vmax). Indexed valve area: 1.03cm^2/m^2 (Vmax). Mean gradient: 7mm Hg (S). Peak gradient: 14mm Hg (S). MITRAL VALVE: Mildly thickened leaflets, . Doppler: There was no evidence for stenosis. Trace to mild regurgitation. Peak gradient: 2mm Hg (D). LEFT ATRIUM: The atrium was normal in size. PULMONIC VALVE: The valve appears to be grossly normal. Doppler: There was no evidence for stenosis. No significant regurgitation. TRICUSPID VALVE: The valve appears to be grossly normal. Doppler: There was no evidence for stenosis. No significant regurgitation. Patient weight: 122.7lb _Ejection fraction:_ 65-75% _Fractional shortening:_ 32% up to 5Kg 5-11.5Kg 11.6-22.9Kg 23-45Kg 45-57Kg Aortic Root 7-13 <17 13-22 17-27 17-27 LA diam 6-13 <23 24-38 33-47 37-40 RVID 10-17 7-15 7-15 7-18 8-17 LVIDd 12-22 <32 24-38 33-47 37-40 LVPW 2-4 3-6 5-7 6-8 7-8 IVS 2-4 3-6 5-7 6-8 7-8 BASIC MEASUREMENTS ADULT NORMAL Left ventricle LV internal dimension, ED, chordal 46.9 mm 43-52 level, PLAX LV internal dimension, ES, chordal 36.1 mm 23-38 level, PLAX Fractional shortening, chordal level, *23 % >29 PLAX LV posterior wall thickness, ED 8.25 mm IVS/LVPW ratio, ED 1.05 <1.3 Ventricular septum Septal thickness, ED 8.69 mm Aortic valve Leaflet separation 17 mm 15-26 BASIC MEASUREMENTS ADULT NORMAL Aortic valve Leaflet separation 17 mm 15-26 Aorta Root diameter, ED 26 mm 20-37 Left atrium Anterior-posterior dimension, ES 33 mm 19-40 Anterior-posterior dimension index, ES 2.08 cm/m^2 <2.2 LA/aortic root ratio 1.27 DOPPLER MEASUREMENTS ADULT NORMAL Aortic valve Peak velocity, S 184 cm/s Mean velocity, S 119 cm/s VTI, S 31.1 cm Mean gradient, S 7 mm Hg Peak gradient, S 14 mm Hg Valve area, Vmax 1.64 cm^2 Valve area index, Vmax 1.03 cm^2/m^2 Mitral valve Peak E-wave velocity 72.1 cm/s Peak A-wave velocity 97.7 cm/s Deceleration time *239 ms 150-230 Peak gradient, D 2 mm Hg Peak E/A ratio 0.7 Maximal regurgitant velocity 175 cm/s Pulmonic valve Peak velocity, S 96.4 cm/s LEGEND: Mean values are shown as u=mean value. Asterisk (*) zamora values outside specified normal range. Prepared and signed by Donavan Khanna [id number]
[2016-03-09 20:00] VITALS: BP 98/57; PULSE 62; PULSE 70; RESP 16; TEMP 98.3; O2SAT 97
--- NOTE | 2016-03-09 21:18 | MB ---
cc: CHIKIS MCNEAL MD DATE OF CONSULTATION 03/09/16 DATE OF 1935 REASON FOR CONSULTATION Patient with a history of lymphoproliferative disorder/CLL. CHIEF COMPLAINT Weakness, dizziness and shortness of breath. HISTORY OF PRESENT ILLNESS Ms. Ramirez is an 80-year-old female who has a history of Lymphoproliferative disorder or possibly CLL. She has been seen by Dr. Lynn. She is somewhat of a poor historian and she relies on her daughter for medical appointments. She was admitted to the hospital after she presented with shortness of breath and dizziness. She was found to be hyperglycemic on admission. She is currently undergoing near syncope workup. She has been seen by cardiology for mildly elevated troponins. The patient has known history of left ventricular hypertrophy. Further cardiac workup is ongoing. Oncology has been consulted due to the history of myeloproliferative disorder. The patient is unable to tell me at this time whether she was receiving any treatments from Dr. Zamudio. She has not seen him for several weeks. His office recently closed down and he is no longer seeing patients in [facility]. The patient has yet to establish an oncologist. She tells me that she was referred to our practice but has not made an appointment. She tells me that she has required blood transfusions in the past, but she is unsure whether she has received any treatment for her blood disorder. She lives at home by herself, although her daughter helps her with cooking and shopping. She says that she has difficulty remembering things and has memory issues. She denies any night sweats, fevers or chills. She has not had any recurrent infections. She has not had any nose bleeds, gum bleeds, petechiae or lesions. Her ECOG performance status is 2. REVIEW OF SYSTEMS Comprehensive 14-point review of systems was completed which is negative except as described in the HPI. PAST MEDICAL HISTORY 1. History of lymphoproliferative disorder, 2. Hypertension, 3. Diabetes, 4. Coronary artery disease status post coronary artery bypass graft in 1997. 5. History of kidney stones 6. History of left thigh damage due to herpes zoster ophthalmicus 7. History of urinary retention. PAST SURGICAL HISTORY 1. Coronary angiogram 2. Coronary artery bypass graft. 3. Cholecystectomy, 4. Appendectomy, 5. Hysterectomy. MEDICATIONS 1. Lasix 40 mg one tablet p.o. daily 2. Levaquin 750 mg 1 tablet p.o. q.48 h 3. Zanaflex 4 mg one tablet p.o. q.h.s. 4. Lisinopril 10 mg one tablet p.o. daily. 5. Norvasc 10 mg one tablet p.o. daily. 6. Aspirin 81 mg one tablet p.o. daily. 7. Colace 100 mg one tablet p.o. daily. 8. Neurontin 100 mg 1 tablet p.o. t.i.d. 9. Pravachol 40 mg one tablet p.o. b.i.d. 10. Metoprolol 25 mg one tablet p.o. daily. 11. Nitroglycerin 0.1 patch daily as needed. 12. Pantoprazole 40 mg one tablet p.o. daily. 13. Tobrex 0.3% ophthalmic drops one t.i.d. left eye 14. Latanoprost 1 drop each eye q.h.s. 15. Sliding scale insulin. 16. Zofran 4 mg IV q.6 h p.r.n. 17. Naloxone 0.4 mg IV p.r.n. as needed. ALLERGIES PENICILLIN SOCIAL HISTORY She lives alone. She is a nonsmoker. She does not drink alcohol. FAMILY HISTORY Reviewed and is noncontributory to this admission. PHYSICAL EXAMINATION VITAL SIGNS: Blood pressure is 111/55, pulse is in the 80s, temperature is 98.3, O2 sats are 97% on room air. GENERAL: Elderly, weak appearing female in no apparent distress. HEENT: Pupils are equal, round and reactive to light. No oral thrush. No oral lesions. NECK: Supple. No JVD, no bruits. No lymphadenopathy. CHEST: Clear to auscultation bilaterally. CARDIAC: S1-S2 regular rate and rhythm. ABDOMEN: Soft, nontender, nondistended. Bowel sounds are present. EXTREMITIES: Without any edema, erythema or cyanosis. SKIN: Without any petechiae, lesion or bruises. NEUROLOGIC: No focal deficits. PSYCHIATRIC: Mood and affect is appropriate. LYMPH NODE EXAM: No lymphadenopathy appreciated on physical exam. LABORATORY DATA WBCs 31.4, hemoglobin is 8.4, platelet count is 73,000, lymphocyte percentage is increased to 96. Sodium is 144, potassium 3.8, CO2 25.9, BUN is 15, creatinine is 0.84, GFR 79, lactic acid is 1.3, calcium is 10. Troponins are 0.11. Coags show INR one. PT 10.7. IMAGING STUDIES CT of the head was completed on March 08, 2016 which did not show any acute intra-cranial abnormality. She also had chest x-ray on March 08, 2016 which shows trace bibasilar atelectasis and borderline cardiomegaly. ASSESSMENT/PLAN This is an 80-year-old female with a past medical history of lymphoproliferative disorder such as CLL who was admitted to the hospital with presyncope, shortness of breath and not feeling well. 1. Leukocytosis. These are primarily lymphocytes. She does have a history of lymphoproliferative disorders. This appears to be CLL. I do not have any records from Dr. Zamudio's office who is the patient's oncologist. According to the patient, she has not received any treatments and has been receiving supportive care including blood transfusions. However, the patient is a poor historian and is unable to remember whether she has had any treatments in the past. We will request these records from Dr. Zamudio's office. I will review her peripheral smear. We will ask pathology to have a look at her peripheral blood smear as well. I will obtain a peripheral blood flow cytometry since we should be able to make a diagnosis of CLL based on the flow cytometry. She is an elderly frail lady and her treatment options will be limited, although there are several drugs that can be given orally that could temporize her disease. Further recommendations will be made after I have reviewed the medical records from Dr. Zamudio's office. I will obtain a serum protein electrophoresis, quantitative immunoglobulins. 2. Anemia. This is most likely secondary to her lymphoproliferative disorder. Obtain anemia studies. Check B12 and folate levels. Rule out any underlying GI bleeding. Obtain a stool hemoccult. 3. Thrombocytopenia. Again most likely related to lymphoproliferative disorder as stated above. Further recommendations will be made during the course of her admission. Thank you for allowing me to participate in the care of this patient. I will continue to follow this patient along. MD BRITTANIE Salazar/ /8:22 PM /8:57 PM SUSAN
[2016-03-09] MEDS: LATANOPROST 0.005% OPHT SOLN 2.5 ML BTL EACH EYE SCH (21:41)
[2016-03-09] MEDS: LEVOFLOXACIN 750 MG TAB PO SCH (21:47)
--- NOTE | 2016-03-09 23:51 | EKG ---
Date Performed: 03/08/2016 Time Performed: 20:17:16 PTAGE: 80 years EKG: Sinus rhythm WITH SINUS ARRHYTHMIA WITH FIRST DEGREE AV BLOCK VOLTAGE CRITERIA FOR LVH INFERIOR MYOCARDIAL INFARC TION MODERATE T-WAVE ABNORMALITY, CONSIDER ANTEROLATERAL ISCHEMIA ABNORMAL ECG NO PREVIOUS TRACING DOCTOR: Ernesto Cook Interpretating Date/Time 03/09/2016 23:45:14
--- NOTE | 2016-03-09 23:57 | EKG ---
Date Performed: 03/08/2016 Time Performed: 16:17:42 PTAGE: 80 years EKG: Sinus rhythm WITH FIRST DEGREE AV BLOCK POSSIBLE LEFT ATRIAL ENLARGEMENT POSSIBLE LEFT VENTRICULAR HYPERTROPHY ST DEVIATION AND MODERATE T-WAVE ABNORMALITY, CONSIDER ANTEROLATERAL ISCHEMIA ABNORMAL ECG NO PREVIOUS TRACING DOCTOR: Ernesto Cook Interpretating Date/Time 03/09/2016 23:49:02
[2016-03-10] VITALS (9 sets, daily range): BP systolic 78–124; BP diastolic 43–60; PULSE 55–78; RESP 16; TEMP 97.1–100; O2SAT 94–99
[2016-03-10] MEDS ORDERED: SODIUM CHLORID 0.9% 500 ML INJ 500 ML IV ONE (00:45)
[2016-03-10] MEDS: INSULIN ASPART SUPPLEMENTAL SCALE SQ SCH ×4 (05:29→21:00)
[2016-03-10 06:56] LABS: ANION GAP 6 MEQ/L (5-15); BICARBONATE 25.7 MEQ/L (21.0-32.0); BLOOD UREA NITROGEN 26 MG/DL (7-18); CHLORIDE 107 MEQ/L (98-107); GLOMERULAR FILTRATION RATE 49 ML/MIN (>89); MAGNESIUM 1.9 MG/DL (1.5-2.5); POTASSIUM 4.1 MEQ/L (3.5-5.1); SODIUM (NA) 139 MEQ/L (136-145)
[2016-03-10 07:01] LABS: IMMUNOGLOBULIN A 104 MG/DL (96-532); IMMUNOGLOBULIN G 1470 MG/DL (650-1610); IMMUNOGLOBULIN M 32 MG/DL (39-238); TOTAL PROTEIN SPE 6.1 GM/DL (6.0-7.6); TRANSFERRIN IRON PROFILE 168 MG/DL (200-360)
[2016-03-10] MEDS: NITROGLYCERIN 0.1 MG/HR PATCH T-DERMAL SCH (08:24)
[2016-03-10] MEDS: ASPIRIN EC 81 MG TABEC PO SCH (08:24)
[2016-03-10] MEDS: DOCUSATE SODIUM 100 MG CAP PO SCH (08:24)
[2016-03-10] MEDS: POTASSIUM CHLORIDE 10 MEQ CONTROLLED RELEASE TAB PO SCH (08:25)
[2016-03-10] MEDS: PANTOPRAZOLE SOD 40 MG DELAYED RELEASE TAB PO SCH (08:25)
[2016-03-10] MEDS: SODIUM CHLORIDE 0.9% FLUSH 5 ML FLUSH FLUSH SCH ×2 (08:25→21:05)
[2016-03-10] MEDS: TOBRAMYCIN SULFATE 0.3% OPTH OINT 3.5 GM TUBE LEFT EYE SCH ×3 (08:25→16:39)
[2016-03-10] MEDS: PRAVASTATIN SOD 40 MG TAB PO SCH ×2 (08:25→21:03)
[2016-03-10] MEDS: DORZOLAMIDE/TIMOLOL OPTH SOLN 10 ML BTL LEFT EYE SCH ×2 (08:26→21:03)
[2016-03-10] MEDS: GABAPENTIN 100 MG CAP PO SCH ×3 (08:27→16:39)
[2016-03-10] MEDS ORDERED: FUROSEMIDE 40 MG TAB PO SCH (09:00)
[2016-03-10] MEDS: LISINOPRIL 10 MG TAB PO SCH (09:00)
[2016-03-10] MEDS: METOPROLOL SUCCINATE 25 MG EXTENDED RELEASE TAB PO SCH (09:00)
--- NOTE | 2016-03-10 10:33 | PD.CARD.PN ---
Subjective Subjective Remarks no complaints. no angina Objective Medications Current Medications Medications (Trade) Dose Ordered Sig/Shwetha Route Start Time Stop Time Status Last Admin (NS Flush) 2 ml UNSCH PRN FLUSH 03/08/16 20:15 (NS Flush) 2 ml BID FLUSH 03/08/16 21:00 03/10/16 08:25 (Zofran Inj) 4 mg Q6H PRN IVP 03/08/16 20:15 (Narcan Inj) 0.4 mg UNSCH PRN IV 03/08/16 20:15 (D50w (Vial) Inj) 25 ml UNSCH PRN IV PUSH 03/08/16 20:15 (Glucagon Inj) 1 mg UNSCH PRN OTHER 03/08/16 20:15 (Levaquin) 750 mg Q48H PO 03/09/16 21:00 03/09/16 21:47 (Norvasc) 10 mg DAILY PO 03/09/16 09:00 03/09/16 08:10 (Ecotrin Ec) 81 mg DAILY PO 03/09/16 09:00 03/10/16 08:24 (Colace) 100 mg DAILY PO 03/09/16 09:00 03/10/16 08:24 (Cosopt 2-0.5% Opth Soln) 1 drop BID LEFT EYE 03/09/16 09:00 03/10/16 08:26 (Neurontin) 100 mg TID PO 03/09/16 09:00 03/10/16 08:27 (Pravachol) 40 mg BID PO 03/09/16 09:00 03/10/16 08:25 (Toprol Xl) 25 mg DAILY PO 03/09/16 09:00 03/09/16 08:10 (Nitro-Dur 0.1 Mg Patch.24hr) 0.1 patch DAILY T-DERMAL 03/09/16 09:00 03/10/16 08:24 (Protonix) 40 mg DAILY PO 03/09/16 09:00 03/10/16 08:25 (Zanaflex) 4 mg HS PO 03/09/16 21:00 03/09/16 21:47 (Tobrex 0.3% Opth Oint) 1 applic TID LEFT EYE 03/09/16 09:00 03/10/16 08:25 (Xalatan 0.005% Opth Soln) 1 drop HS EACH EYE 03/08/16 22:30 03/09/16 21:41 (Prinivil) 10 mg DAILY PO 03/09/16 10:00 03/09/16 10:07 (Lasix) 40 mg DAILY PO 03/10/16 09:00 03/10/16 08:24 (KCl) 10 meq Q12HR PO 03/09/16 11:00 03/10/16 08:25 Vital Signs / I&O Vital Signs Date Time Temp Pulse Resp B/P Pulse Ox O2 Delivery O2 Flow Rate FiO2 03/10/16 09:51 Room Air 03/10/16 08:00 98.2 74 16 107/55 96 03/10/16 04:00 98.7 72 16 119/59 97 03/10/16 02:00 110/58 03/10/16 00:15 88/56 03/10/16 00:00 98.7 65 16 78/43 95 85/46 82/46 82/48 03/09/16 20:00 98.3 70 16 98/57 97 03/09/16 20:00 Room Air 03/09/16 20:00 62 03/09/16 16:00 98.3 82 20 111/55 97 03/09/16 12:32 Room Air 03/09/16 12:00 97.9 64 20 107/58 96 I/O 03/09/16 03/09/16 03/09/16 03/10/16 03/10/16 03/10/16 07:00 15:00 23:00 07:00 15:00 23:00 Intake Total 0 ml 360 ml 240 ml 500 ml Balance 0 ml 360 ml 240 ml 500 ml Intake Oral 0 ml 360 ml 240 ml IV Total 500 ml # Voids 1 2 2 1 # Bowel Movements 0 0 0 0 Physical Exam Alert Chest clear CV S1S2 RRR with 2/6 MOE (very mild by echo) No edema Laboratory Laboratory Tests Test 03/10/16 03/10/16 05:47 05:49 Sodium Level 139 MEQ/L Potassium Level 4.1 MEQ/L Chloride Level 107 MEQ/L Carbon Dioxide Level 25.7 MEQ/L Anion Gap 6 MEQ/L Blood Urea Nitrogen 26 MG/DL Creatinine 1.26 MG/DL Estimat Glomerular Filtration 49 ML/MIN Rate Random Glucose 89 MG/DL Calcium Level 9.7 MG/DL Magnesium Level 1.9 MG/DL Iron Level 29 MCG/DL Total Iron Binding Capacity 235 MCG/DL Percent Iron Saturation 12.3 % Troponin I 0.09 NG/ML Total Protein 6.1 GM/DL Immunoglobulin G Total 1470 MG/DL Immunoglobulin A 104 MG/DL Immunoglobulin M 32 MG/DL Blood Smear Pathologist Review Haptoglobin 242 MG/DL Assessment and Plan Problem List: (1) Hypertensive heart disease with congestive heart failure Assessment and Plan: BP low. Stop amlodipine (2) CAD (coronary artery disease) Assessment and Plan: No angina (3) Elevated troponin Assessment and Plan: Minimal. Doubt ACS Hitesh Damian MD Mar 10, 2016 10:32
--- NOTE | 2016-03-10 11:08 | HHI.PR ---
Subjective Remarks Follow-up near-syncope 03/09/16-patient seen and examined, no syncopal episodes since admission. Alert and oriented 3. No acute event overnight and currently afebrile. 03/10/16-patient seen and examined; stable and no complaints. Daughter by the bedside and would like her mom discharged to SNF when medically stable. Denies any chest pain or shortness of breath Objective Vitals Vital Signs Date Time Temp Pulse Resp B/P Pulse Ox O2 Delivery O2 Flow Rate FiO2 03/10/16 09:51 Room Air 03/10/16 08:00 98.2 74 16 107/55 96 03/10/16 04:00 98.7 72 16 119/59 97 03/10/16 02:00 110/58 03/10/16 00:15 88/56 03/10/16 00:00 98.7 65 16 78/43 95 85/46 82/46 82/48 03/09/16 20:00 98.3 70 16 98/57 97 03/09/16 20:00 Room Air 03/09/16 20:00 62 03/09/16 16:00 98.3 82 20 111/55 97 03/09/16 12:32 Room Air 03/09/16 12:00 97.9 64 20 107/58 96 I/O 03/09/16 03/09/16 03/09/16 03/10/16 03/10/16 03/10/16 07:00 15:00 23:00 07:00 15:00 23:00 Intake Total 0 ml 360 ml 240 ml 500 ml Balance 0 ml 360 ml 240 ml 500 ml Intake Oral 0 ml 360 ml 240 ml IV Total 500 ml # Voids 1 2 2 1 # Bowel Movements 0 0 0 0 Result Diagram: 03/09/16 0654 03/10/16 0547 Imaging Last Impressions Head CT 03/08/16 1711 Signed Impressions: Service Date/Time: Tuesday, March 08, 2016 17:33 - CONCLUSION: No acute intracranial abnormality. Giovanny Belcher MD Chest X-Ray 03/08/16 1708 Signed Impressions: Service Date/Time: Tuesday, March 08, 2016 17:12 - CONCLUSION: Trace bibasilar atelectasis and borderline cardiomegaly. Previous CABG. Giovanny Belcher MD Lower Extremity Ultrasound 03/08/16 0000 Signed Impressions: Service Date/Time: Tuesday, March 08, 2016 22:57 - CONCLUSION: Normal examination. Troy Ignacio Jr., MD Carotid Artery Ultrasound 03/08/16 0000 Signed Impressions: Service Date/Time: Tuesday, March 08, 2016 23:15 - CONCLUSION: 1. Calcified atherosclerotic plaque without hemodynamically significant stenosis involving either carotid artery. 2. Antegrade flow involving both vertebral arteries. Troy Ignacio Jr., MD Objective Remarks GENERAL: NAD SKIN: Warm and dry. HEAD: Normocephalic. EYES: No scleral icterus. No injection or drainage. NECK: Supple, trachea midline. No JVD or lymphadenopathy. CARDIOVASCULAR: Regular rate and rhythm without murmurs, gallops, or rubs. RESPIRATORY: Breath sounds equal bilaterally. No accessory muscle use. GASTROINTESTINAL: Abdomen soft, non-tender, nondistended. MUSCULOSKELETAL: No cyanosis, or edema. BACK: Nontender without obvious deformity. No CVA tenderness. A/P Problem List: (1) Near syncope ICD Code: R55 Status: Acute Assessment and Plan 80-year-old female with 1-Near syncopelikely due to generalized weakness. Workup in process to rule out neurocardiogenic syncope. Head CT with No acute intracranial abnormality. Carotid ultrasound without hemodynamically significant stenosis involving either carotid artery. 2-D echo with a 55-60% and normal systolic function. PT consult to treat for weakness 2-Dyspnea on exertion/peripheral edemalikely from CHF. 2-D echo 55-60%, RON inhibitor added to patient regiment and continue current diuretics. 3-Elevated troponinnonspecific. ACS ruled out per protocol with serial cardiac enzyme and no evidence of angina. Appreciate input from cardiology and recommended medical management 4-History of CLL: Appreciate input from Oncology and work up in progress including peripheral blood flow cytometry, serum protein electrophoresis, quantitative immunoglobulins.. Per daughter account, patient's outpatient medical oncology has moved out of town to [facility] 5-Hypertension: However currently hypotensive, status post bolus, Norvasc has been discontinued. Continue lisinopril, Lopressor however with holding parametria 6-UTI: We will discontinue Levaquin 750 every 48H as urine culture negative 7-Other chronic medical conditions: Continue current meds 8-Bilateral lower extremity pain: Doppler ruled out DVT 9-Mild acute renal failure: Avoid all nephrotoxic drugs, monitor BUN and creatinine. Gentle IV fluid hydration. 10-Anemia of chronic disease: Also with evidence of ANABEL; B12 and folate levels pending. stool hemoccult pending to rule out GI bleed. 11-Iron deficiency anemia: May benefit from Venofer transfusion 100 mg daily 3 days 12-Thrombocytopenia : 2/2 lymphoproliferative disorder DVT prophylaxis: SCD Discharge Planning Likely discharge in 1-2 days Archie Todd MD Mar 10, 2016 11:08
[2016-03-10] MEDS ORDERED: ACETAMINOPHEN 325 MG TAB PO PRN (17:30)
--- NOTE | 2016-03-10 19:19 | PD.ONC.PN ---
Subjective Subjective Remarks resting comfortably no new issues feels weak d/w rn Objective Data Date Time Temp Pulse Resp B/P Pulse Ox O2 Delivery O2 Flow Rate FiO2 03/10/16 16:00 100.0 70 16 124/60 97 03/10/16 12:00 99.1 68 16 107/55 96 03/10/16 09:51 Room Air 03/10/16 08:00 98.2 74 16 107/55 96 03/10/16 08:00 78 03/10/16 04:00 98.7 72 16 119/59 97 03/10/16 02:00 110/58 03/10/16 00:15 88/56 03/10/16 00:00 98.7 65 16 78/43 95 85/46 82/46 82/48 03/09/16 20:00 98.3 70 16 98/57 97 03/09/16 20:00 Room Air 03/09/16 20:00 62 03/10/16 03/10/16 03/10/16 07:00 15:00 23:00 Intake Total 500 ml 480 ml Output Total 100 ml Balance 500 ml 380 ml Result Diagram: 03/09/16 0654 03/10/16 0547 Laboratory Results Laboratory Tests Test 03/10/16 03/10/16 05:47 05:49 Sodium Level 139 MEQ/L Potassium Level 4.1 MEQ/L Chloride Level 107 MEQ/L Carbon Dioxide Level 25.7 MEQ/L Anion Gap 6 MEQ/L Blood Urea Nitrogen 26 MG/DL Creatinine 1.26 MG/DL Estimat Glomerular Filtration 49 ML/MIN Rate Random Glucose 89 MG/DL Calcium Level 9.7 MG/DL Magnesium Level 1.9 MG/DL Iron Level 29 MCG/DL Total Iron Binding Capacity 235 MCG/DL Percent Iron Saturation 12.3 % Troponin I 0.09 NG/ML Total Protein 6.1 GM/DL Vitamin B12 Level 230 PG/ML Immunoglobulin G Total 1470 MG/DL Immunoglobulin A 104 MG/DL Immunoglobulin M 32 MG/DL Blood Smear Pathologist Review Haptoglobin 242 MG/DL Culture Results Microbiology Date/Time Procedure Status Source Growth 03/08/16 19:40 Aerobic Blood Culture - Preliminary Resulted Blood Peripheral NO GROWTH IN 2 DAYS 03/08/16 19:40 Anaerobic Blood Culture - Preliminary Resulted Blood Peripheral NO GROWTH IN 2 DAYS 03/08/16 19:46 Aerobic Blood Culture - Preliminary Resulted Blood Peripheral NO GROWTH IN 2 DAYS 03/08/16 19:46 Anaerobic Blood Culture - Preliminary Resulted Blood Peripheral NO GROWTH IN 2 DAYS 03/08/16 20:03 Urine Culture - Final Complete Urine Clean Catch 50-100,000 CFU/ML MIXED GRAM POSITIVE... Administered Medications Medications (Trade) Dose Ordered Sig/Shwetha Route PRN Reason Start Time Stop Time Status Last Admin Dose Admin IV Flush (NS Flush) 2 ml BID FLUSH 03/08/16 21:00 03/10/16 08:25 Levofloxacin (Levaquin) 750 mg Q48H PO 03/09/16 21:00 03/09/16 21:47 Aspirin (Ecotrin Ec) 81 mg DAILY PO 03/09/16 09:00 03/10/16 08:24 Docusate Sodium (Colace) 100 mg DAILY PO 03/09/16 09:00 03/10/16 08:24 Dorzolamide/ Timolol (Cosopt 2-0.5% Opth Soln) 1 drop BID LEFT EYE 03/09/16 09:00 03/10/16 08:26 Gabapentin (Neurontin) 100 mg TID PO 03/09/16 09:00 03/10/16 16:39 Pravastatin Sodium (Pravachol) 40 mg BID PO 03/09/16 09:00 03/10/16 08:25 Metoprolol Succinate (Toprol Xl) 25 mg DAILY PO 03/09/16 09:00 03/09/16 08:10 Nitroglycerin (Nitro-Dur 0.1 Mg Patch.24hr) 0.1 patch DAILY T-DERMAL 03/09/16 09:00 03/10/16 08:24 Pantoprazole Sodium (Protonix) 40 mg DAILY PO 03/09/16 09:00 03/10/16 08:25 Tizanidine HCl (Zanaflex) 4 mg HS PO 03/09/16 21:00 03/09/16 21:47 Tobramycin Sulfate (Tobrex 0.3% Opth Oint) 1 applic TID LEFT EYE 03/09/16 09:00 03/10/16 16:39 Latanoprost (Xalatan 0.005% Opth Soln) 1 drop HS EACH EYE 03/08/16 22:30 03/09/16 21:41 Lisinopril (Prinivil) 10 mg DAILY PO 03/09/16 10:00 03/09/16 10:07 Acetaminophen (Tylenol) 650 mg Q4H PRN PO TEMP>101F, PAIN 1-10, HEADACHE 03/10/16 17:30 03/10/16 19:15 Objective Remarks GENERAL: nad SKIN: Warm and dry. NECK: Supple, trachea midline. No JVD or lymphadenopathy. LYMPHATIC: No adenopathy. CARDIOVASCULAR: Regular rate and rhythm without murmurs. RESPIRATORY: Breath sounds equal bilaterally. No accessory muscle use. GASTROINTESTINAL: Abdomen soft, non-tender, nondistended. EXTREMITIES: No cyanosis, or edema. Assessment/Plan Problem List: (1) Weakness generalized Status: Acute (2) Near syncope Status: Acute (3) Anemia Status: Acute (4) Thrombocytopenia Status: Chronic (5) Lymphoproliferative disorder Status: Chronic Assessment 80-year-old female with a past medical history of lymphoproliferative disorder such as CLL who was admitted to the hospital with presyncope, shortness of breath and not feeling well. 1. 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 Anemia due to Leukemia/B12 deficiency and iron deficiency 3. Thrombocytopenia 4. Lymphocytosis Plan - Flow cytometry pending--f/u - f/u on SPEP and quantitative immunoglobulins - IV iron - B12 injections. start folic acid - CT chest/abdomen and pelvis to evaluate for lymphadenopathy - can be discharged from hematology standpoint and outpatient f/u in clinic after CT scans are completed Problem Qualifiers (1) Anemia: Bartolo Hahn MD Mar 10, 2016 19:19
[2016-03-10] MEDS: LATANOPROST 0.005% OPHT SOLN 2.5 ML BTL EACH EYE SCH (21:03)
[2016-03-10 22:19] LABS: ALBUMIN SPE 3.17 GM/DL (3.50-5.00); ALPHA 1 GLOBULIN 0.26 GM/DL (0.11-0.29); ALPHA 2 GLOBULIN 0.78 GM/DL (0.22-1.00); BETA GLOBULINS (SPE) 0.59 GM/DL (0.53-1.03)
[2016-03-11] VITALS (7 sets, daily range): BP systolic 109–126; BP diastolic 54–59; PULSE 54–73; RESP 16–20; TEMP 97.6–98.6; O2SAT 95–99
[2016-03-11] MEDS ORDERED: CYANOCOBALAMIN 1000 MCG/ML VIAL IM SCH
[2016-03-11] MEDS: FOLIC ACID 1 MG TAB PO SCH ×2 (02:55→09:37)
[2016-03-11] MEDS: INSULIN ASPART SUPPLEMENTAL SCALE SQ SCH ×4 (06:55→21:00)
[2016-03-11] MEDS: METOPROLOL SUCCINATE 25 MG EXTENDED RELEASE TAB PO SCH (07:46)
--- NOTE | 2016-03-11 08:27 | HHI.PR ---
Subjective Remarks Follow-up near-syncope 03/09/16-patient seen and examined, no syncopal episodes since admission. Alert and oriented 3. No acute event overnight and currently afebrile. 03/10/16-patient seen and examined; stable and no complaints. Daughter by the bedside and would like her mom discharged to SNF when medically stable. Denies any chest pain or shortness of breath 03/11/16-patient seen and examined; she feels stable and no new events. Objective Vitals Vital Signs Date Time Temp Pulse Resp B/P Pulse Ox O2 Delivery O2 Flow Rate FiO2 03/11/16 05:17 73 03/11/16 03:18 97.6 54 16 111/54 96 03/10/16 23:40 97.1 55 16 113/54 99 03/10/16 20:45 Room Air 03/10/16 20:05 97.2 59 16 105/54 94 03/10/16 16:00 100.0 70 16 124/60 97 03/10/16 12:00 99.1 68 16 107/55 96 03/10/16 09:51 Room Air I/O 03/10/16 03/10/16 03/10/16 03/11/16 03/11/16 03/11/16 06:59 14:59 22:59 06:59 14:59 22:59 Intake Total 500 ml 480 ml 240 ml 240 ml Output Total 100 ml 200 ml 200 ml Balance 500 ml 380 ml 40 ml 40 ml Intake Oral 480 ml 240 ml 240 ml IV Total 500 ml Output Urine Total 100 ml 200 ml 200 ml # Voids 1 2 # Bowel Movements 0 1 0 Result Diagram: 03/09/16 0654 03/10/16 0547 Imaging Last Impressions Head CT 03/08/16 1711 Signed Impressions: Service Date/Time: Tuesday, March 08, 2016 17:33 - CONCLUSION: No acute intracranial abnormality. Giovanny Belcher MD Chest X-Ray 03/08/16 1708 Signed Impressions: Service Date/Time: Tuesday, March 08, 2016 17:12 - CONCLUSION: Trace bibasilar atelectasis and borderline cardiomegaly. Previous CABG. Giovanny Belcher MD Lower Extremity Ultrasound 03/08/16 0000 Signed Impressions: Service Date/Time: Tuesday, March 08, 2016 22:57 - CONCLUSION: Normal examination. Troy Ignacio Jr., MD Carotid Artery Ultrasound 03/08/16 0000 Signed Impressions: Service Date/Time: Tuesday, March 08, 2016 23:15 - CONCLUSION: 1. Calcified atherosclerotic plaque without hemodynamically significant stenosis involving either carotid artery. 2. Antegrade flow involving both vertebral arteries. Troy Ignacio Jr., MD Objective Remarks GENERAL: NAD SKIN: Warm and dry. HEAD: Normocephalic. EYES: No scleral icterus. No injection or drainage. NECK: Supple, trachea midline. No JVD or lymphadenopathy. CARDIOVASCULAR: Regular rate and rhythm without murmurs, gallops, or rubs. RESPIRATORY: Breath sounds equal bilaterally. No accessory muscle use. GASTROINTESTINAL: Abdomen soft, non-tender, nondistended. MUSCULOSKELETAL: No cyanosis, or edema. BACK: Nontender without obvious deformity. No CVA tenderness. 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 Workup in process to rule out neurocardiogenic syncope. Head CT with No acute intracranial abnormality. Carotid ultrasound without hemodynamically significant stenosis involving either carotid artery. 2-D echo with a 55-60% and normal systolic function. PT consult to treat for weakness 2-Dyspnea on exertion/peripheral edemalikely from CHF. 2-D echo 55-60%, RON inhibitor added to patient regiment and continue current diuretics. 3-Elevated troponinnonspecific. ACS ruled out per protocol with serial cardiac enzyme and no evidence of angina. Appreciate input from cardiology and recommended medical management 4-History of CLL: Appreciate input from Oncology and work up in progress including peripheral blood flow cytometry, serum protein electrophoresis, quantitative immunoglobulins. Check CT abdomen/pelvis and CT chest to evaluate for lymphadenopathy 5-Hypertension: However currently hypotensive, status post bolus, Norvasc has been discontinued. Continue lisinopril, Lopressor however with holding parametria 6-UTI: s/p Levaquin 750 every 48H as urine culture negative 7-Other chronic medical conditions: Continue current meds 8-Bilateral lower extremity pain: Doppler ruled out DVT 9-Mild acute renal failure: Avoid all nephrotoxic drugs, monitor BUN and creatinine. Gentle IV fluid hydration. 10-Anemia of chronic disease as well as B-12 deficiency: Also with evidence of ANABEL; folate levels pending. 11-Iron deficiency anemia: Transfuse Venofer 200 mg daily 3 days until 03/13/16 12-Thrombocytopenia : 2/2 lymphoproliferative disorder DVT prophylaxis: SCD Discharge Planning Likely discharge in 1-2 days Archie Todd MD Mar 11, 2016 08:27
[2016-03-11] MEDS: TOBRAMYCIN SULFATE 0.3% OPTH OINT 3.5 GM TUBE LEFT EYE SCH ×3 (09:00→16:52)
[2016-03-11] MEDS ORDERED: PILL SPLITTER OTHER PRN (09:00)
[2016-03-11] MEDS: SODIUM CHLORIDE 0.9% FLUSH 5 ML FLUSH FLUSH SCH ×2 (09:00→21:51)
[2016-03-11] MEDS: DORZOLAMIDE/TIMOLOL OPTH SOLN 10 ML BTL LEFT EYE SCH ×2 (09:00→21:00)
[2016-03-11 09:11] LABS: BICARBONATE 23.4 MEQ/L (21.0-32.0); POTASSIUM 3.8 MEQ/L (3.5-5.1)
--- NOTE | 2016-03-11 09:17 | PD.CARD.PN ---
Subjective Subjective Remarks no complaints Objective Medications Current Medications Medications (Trade) Dose Ordered Sig/Shwetha Route Start Time Stop Time Status Last Admin (NS Flush) 2 ml UNSCH PRN FLUSH 03/08/16 20:15 (NS Flush) 2 ml BID FLUSH 03/08/16 21:00 03/10/16 21:05 (Zofran Inj) 4 mg Q6H PRN IVP 03/08/16 20:15 (Narcan Inj) 0.4 mg UNSCH PRN IV 03/08/16 20:15 (D50w (Vial) Inj) 25 ml UNSCH PRN IV PUSH 03/08/16 20:15 (Glucagon Inj) 1 mg UNSCH PRN OTHER 03/08/16 20:15 (Levaquin) 750 mg Q48H PO 03/09/16 21:00 03/09/16 21:47 (Ecotrin Ec) 81 mg DAILY PO 03/09/16 09:00 03/10/16 08:24 (Colace) 100 mg DAILY PO 03/09/16 09:00 03/10/16 08:24 (Cosopt 2-0.5% Opth Soln) 1 drop BID LEFT EYE 03/09/16 09:00 03/10/16 21:03 (Neurontin) 100 mg TID PO 03/09/16 09:00 03/10/16 16:39 (Pravachol) 40 mg BID PO 03/09/16 09:00 03/10/16 21:03 (Toprol Xl) 25 mg DAILY PO 03/09/16 09:00 03/09/16 08:10 (Nitro-Dur 0.1 Mg Patch.24hr) 0.1 patch DAILY T-DERMAL 03/09/16 09:00 03/10/16 08:24 (Protonix) 40 mg DAILY PO 03/09/16 09:00 03/10/16 08:25 (Zanaflex) 4 mg HS PO 03/09/16 21:00 03/10/16 21:03 (Tobrex 0.3% Opth Oint) 1 applic TID LEFT EYE 03/09/16 09:00 03/10/16 16:39 (Xalatan 0.005% Opth Soln) 1 drop HS EACH EYE 03/08/16 22:30 03/10/16 21:03 (Tylenol) 650 mg Q4H PRN PO 03/10/16 17:30 03/10/16 19:15 (Vitamin B12 Inj) 1,000 mcg Q30D IM 03/11/16 00:00 03/11/16 02:53 Folic Acid 1 mg 1 mg DAILY PO 03/10/16 23:30 03/11/16 02:55 (Venofer Inj/NS Inj) 110 ml @ 110 mls/hr DAILY IV 03/11/16 09:00 03/13/16 09:59 (Prinivil) 5 mg DAILY PO 03/11/16 09:00 (Pill Splitter) 1 ea UNSCH PRN OTHER 03/11/16 09:00 (Tylenol) 650 mg UNSCH PO 03/11/16 09:15 03/13/16 23:00 (Benadryl) 25 mg UNSCH PO 03/11/16 09:15 03/13/16 23:00 Vital Signs / I&O Vital Signs Date Time Temp Pulse Resp B/P Pulse Ox O2 Delivery O2 Flow Rate FiO2 03/11/16 08:00 98.0 57 20 126/59 95 03/11/16 05:17 73 03/11/16 03:18 97.6 54 16 111/54 96 03/10/16 23:40 97.1 55 16 113/54 99 03/10/16 20:45 Room Air 03/10/16 20:05 97.2 59 16 105/54 94 03/10/16 16:00 100.0 70 16 124/60 97 03/10/16 12:00 99.1 68 16 107/55 96 03/10/16 09:51 Room Air I/O 03/10/16 03/10/16 03/10/16 03/11/16 03/11/16 03/11/16 06:59 14:59 22:59 06:59 14:59 22:59 Intake Total 500 ml 480 ml 240 ml 240 ml Output Total 100 ml 200 ml 200 ml Balance 500 ml 380 ml 40 ml 40 ml Intake Oral 480 ml 240 ml 240 ml IV Total 500 ml Output Urine Total 100 ml 200 ml 200 ml # Voids 1 2 # Bowel Movements 0 1 0 Physical Exam Alert Chest clear CV S1S2 RRR with 2/6 MOE (very mild by echo) No edema Laboratory Laboratory Tests Test 03/11/16 07:37 Sodium Level 138 MEQ/L Potassium Level 3.8 MEQ/L Chloride Level 105 MEQ/L Carbon Dioxide Level 23.4 MEQ/L Anion Gap 10 MEQ/L Blood Urea Nitrogen 30 MG/DL Creatinine 1.19 MG/DL Estimat Glomerular Filtration 53 ML/MIN Rate Random Glucose 94 MG/DL Calcium Level 9.4 MG/DL Assessment and Plan Problem List: (1) Hypertensive heart disease with congestive heart failure Assessment and Plan: BP has been low, Amlodipine stopped. Other meds reduced (2) CAD (coronary artery disease) Assessment and Plan: no angina (3) Elevated troponin Assessment and Plan: doubt [place] Hitesh Damian MD Mar 11, 2016 09:17
[2016-03-11] MEDS: PRAVASTATIN SOD 40 MG TAB PO SCH ×2 (09:37→21:50)
[2016-03-11] MEDS: DOCUSATE SODIUM 100 MG CAP PO SCH (09:37)
[2016-03-11] MEDS: GABAPENTIN 100 MG CAP PO SCH ×3 (09:37→16:52)
[2016-03-11] MEDS: LISINOPRIL 10 MG TAB PO SCH (09:37)
[2016-03-11] MEDS: ASPIRIN EC 81 MG TABEC PO SCH (09:37)
[2016-03-11] MEDS: diphenhydrAMINE HCL 25 MG CAP PO SCH (09:37)
[2016-03-11] MEDS: ACETAMINOPHEN 325 MG TAB PO SCH (09:37)
[2016-03-11] MEDS: PANTOPRAZOLE SOD 40 MG DELAYED RELEASE TAB PO SCH (09:37)
[2016-03-11] MEDS: NITROGLYCERIN 0.1 MG/HR PATCH T-DERMAL SCH (09:39)
[2016-03-11] MEDS: IRON SUCROSE INJ 200 MG in SODIUM CHLORIDE 0.9% INJ 100 ML IV SCH (10:59)
--- NOTE | 2016-03-11 12:16 | PD.ONC.PN ---
Subjective Subjective Remarks Afebrile overnight. Patient resting comfortably without complaint. She states she feels improved today. Her daughter is at the bedside. Objective Data Date Time Temp Pulse Resp B/P Pulse Ox O2 Delivery O2 Flow Rate FiO2 03/11/16 12:00 98.3 62 18 112/58 97 03/11/16 08:00 98.0 57 20 126/59 95 03/11/16 05:17 73 03/11/16 03:18 97.6 54 16 111/54 96 03/10/16 23:40 97.1 55 16 113/54 99 03/10/16 20:45 Room Air 03/10/16 20:05 97.2 59 16 105/54 94 03/10/16 16:00 100.0 70 16 124/60 97 03/11/16 03/11/16 03/11/16 06:59 14:59 22:59 Intake Total 240 ml Output Total 200 ml Balance 40 ml Result Diagram: 03/09/16 0654 03/11/16 0737 Laboratory Results Laboratory Tests Test 03/11/16 07:37 Sodium Level 138 MEQ/L Potassium Level 3.8 MEQ/L Chloride Level 105 MEQ/L Carbon Dioxide Level 23.4 MEQ/L Anion Gap 10 MEQ/L Blood Urea Nitrogen 30 MG/DL Creatinine 1.19 MG/DL Estimat Glomerular Filtration 53 ML/MIN Rate Random Glucose 94 MG/DL Calcium Level 9.4 MG/DL Culture Results Microbiology Date/Time Procedure Status Source Growth 03/08/16 19:40 Aerobic Blood Culture - Preliminary Resulted Blood Peripheral NO GROWTH IN 3 DAYS 03/08/16 19:40 Anaerobic Blood Culture - Preliminary Resulted Blood Peripheral NO GROWTH IN 3 DAYS 03/08/16 19:46 Aerobic Blood Culture - Preliminary Resulted Blood Peripheral NO GROWTH IN 3 DAYS 03/08/16 19:46 Anaerobic Blood Culture - Preliminary Resulted Blood Peripheral NO GROWTH IN 3 DAYS 03/08/16 20:03 Urine Culture - Final Complete Urine Clean Catch 50-100,000 CFU/ML MIXED GRAM POSITIVE... Administered Medications Medications (Trade) Dose Ordered Sig/Shwetha Route PRN Reason Start Time Stop Time Status Last Admin Dose Admin IV Flush (NS Flush) 2 ml BID FLUSH 03/08/16 21:00 03/11/16 09:00 Levofloxacin (Levaquin) 750 mg Q48H PO 03/09/16 21:00 03/09/16 21:47 Aspirin (Ecotrin Ec) 81 mg DAILY PO 03/09/16 09:00 03/11/16 09:37 Docusate Sodium (Colace) 100 mg DAILY PO 03/09/16 09:00 03/11/16 09:37 Dorzolamide/ Timolol (Cosopt 2-0.5% Opth Soln) 1 drop BID LEFT EYE 03/09/16 09:00 03/11/16 09:00 Gabapentin (Neurontin) 100 mg TID PO 03/09/16 09:00 03/11/16 09:37 Pravastatin Sodium (Pravachol) 40 mg BID PO 03/09/16 09:00 03/11/16 09:37 Metoprolol Succinate (Toprol Xl) 25 mg DAILY PO 03/09/16 09:00 03/09/16 08:10 Nitroglycerin (Nitro-Dur 0.1 Mg Patch.24hr) 0.1 patch DAILY T-DERMAL 03/09/16 09:00 03/11/16 09:39 Pantoprazole Sodium (Protonix) 40 mg DAILY PO 03/09/16 09:00 03/11/16 09:37 Tizanidine HCl (Zanaflex) 4 mg HS PO 03/09/16 21:00 03/10/16 21:03 Tobramycin Sulfate (Tobrex 0.3% Opth Oint) 1 applic TID LEFT EYE 03/09/16 09:00 03/11/16 09:00 Latanoprost (Xalatan 0.005% Opth Soln) 1 drop HS EACH EYE 03/08/16 22:30 03/10/16 21:03 Acetaminophen (Tylenol) 650 mg Q4H PRN PO TEMP>101F, PAIN 1-10, HEADACHE 03/10/16 17:30 03/10/16 19:15 Cyanocobalamin (Vitamin B12 Inj) 1,000 mcg Q30D IM 03/11/16 00:00 03/11/16 02:53 Folic Acid 1 mg 1 mg DAILY PO 03/10/16 23:30 03/11/16 09:37 Iron Sucrose/ Sodium Chloride (Venofer Inj/NS Inj) 110 ml @ 110 mls/hr DAILY IV 03/11/16 09:00 03/13/16 09:59 03/11/16 10:59 Lisinopril (Prinivil) 5 mg DAILY PO 03/11/16 09:00 03/11/16 09:37 Acetaminophen (Tylenol) 650 mg UNSCH PO 03/11/16 09:15 03/13/16 23:00 03/11/16 09:37 Diphenhydramine HCl (Benadryl) 25 mg UNSCH PO 03/11/16 09:15 03/13/16 23:00 03/11/16 09:37 Objective Remarks GENERAL: Pleasant elderly female sitting up in chair next to bed in nad. SKIN: Warm and dry. HEAD: Normocephalic. EYES: No injection or drainage. NECK: Supple, trachea midline. CARDIOVASCULAR: +S1/S2 RESPIRATORY: Breath sounds equal bilaterally. No accessory muscle use. GASTROINTESTINAL: Abdomen soft, non-tender, nondistended. EXTREMITIES: No cyanosis. NEUROLOGICAL: awake and alert, appropriate affect. able to move extremities. Assessment/Plan Problem List: (1) Lymphoproliferative disorder Status: Chronic Plan: --peripheral smear shows smudge cells, suggests CLL --flow cytometry pending --records requested from Dr. Garcia office, pending - CT chest/abdomen and pelvis to evaluate for lymphadenopathy - can be discharged from hematology standpoint and outpatient f/u in clinic after CT scans are completed (2) Anemia Status: Acute Plan: d/t leukemia, iron/B12 deficiency --s/p IV Venofer x 3 days ordered --B12 injections --monitor CBC (3) Thrombocytopenia Status: Chronic (4) Weakness generalized Status: Acute Assessment 80-year-old female with a past medical history of lymphoproliferative disorder such as CLL who was admitted to the hospital with presyncope, shortness of breath and not feeling well. 1. 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 Anemia due to Leukemia/B12 deficiency and iron deficiency 3. Thrombocytopenia 4. Lymphocytosis Plan 1. will need CT C/A/P 2. await records from Dr. Zamudio's office 3. patient has appointment at [facility] on 03/26/16. Attending Statement The exam, history, and the medical decision-making described in the above note were completed with the assistance of the mid-level provider. I reviewed and agree with the findings presented. I attest that I had a [id number] encounter with the patient on the same day, and personally performed and documented my assessment and findings in the medical record. CLL by peripheral smear. Flow cytometry pending B12 injections and Iron sucrose CT C/A/P with contrast when Cr better. Ok to d/c from oncology standpoint when medically ready F/U with me in 2-3 weeks after discharge Problem Qualifiers (1) Anemia: Liberty Godfrey Mar 11, 2016 12:16 Bartolo Hahn MD Mar 11, 2016 22:38
[2016-03-11 12:51] LABS: MEAN CELL VOLUME 99.9 FL (80.0-100.0); MEAN CORPUSCULAR HEMOGLOBIN 32.2 PG (27.0-34.0); MEAN CORPUSCULAR HGB CONC 32.2 % (32.0-36.0); PLATELET COUNT 69 TH/MM3 (150-450); WHITE BLOOD COUNT 32.4 TH/MM3 (4.0-11.0)
[2016-03-11 12:55] LABS: HEMO FLAGS AUTO DIFF
[2016-03-11 13:51] LABS: NEUTROPHIL # MANUAL DIFF 1.3 TH/MM3 (1.8-7.7); POLYS (SEG NEUTROPHILS) 4 % (16-70); WBC DIFF SAMPLE 100
[2016-03-11 13:52] LABS: PLATELET ESTIMATE SMEAR LOW (NORMAL); PLATELET MORPHOLOGY NORMAL (NORMAL); SCAN/DIFF FINAL DIFF MANUAL
[2016-03-11 13:55] LABS: SMUDGE CELLS PRESENT PRESENT
[2016-03-11] MEDS: LEVOFLOXACIN 750 MG TAB PO SCH (21:00)
[2016-03-11] MEDS: LATANOPROST 0.005% OPHT SOLN 2.5 ML BTL EACH EYE SCH (21:51)
[2016-03-12] VITALS (8 sets, daily range): BP systolic 118–141; BP diastolic 58–66; PULSE 55–68; RESP 16–20; TEMP 97.5–98.7; O2SAT 94–99
[2016-03-12] MEDS: INSULIN ASPART SUPPLEMENTAL SCALE SQ SCH ×4 (05:43→20:19)
[2016-03-12] MEDS: FOLIC ACID 1 MG TAB PO SCH (08:56)
[2016-03-12] MEDS: diphenhydrAMINE HCL 25 MG CAP PO SCH (08:56)
[2016-03-12] MEDS: METOPROLOL SUCCINATE 25 MG EXTENDED RELEASE TAB PO SCH (08:56)
[2016-03-12] MEDS: NITROGLYCERIN 0.1 MG/HR PATCH T-DERMAL SCH (08:56)
[2016-03-12] MEDS: LISINOPRIL 10 MG TAB PO SCH (08:56)
[2016-03-12] MEDS: ASPIRIN EC 81 MG TABEC PO SCH (08:56)
[2016-03-12] MEDS: PRAVASTATIN SOD 40 MG TAB PO SCH ×2 (08:56→20:19)
[2016-03-12] MEDS: DOCUSATE SODIUM 100 MG CAP PO SCH (08:56)
[2016-03-12] MEDS: GABAPENTIN 100 MG CAP PO SCH ×3 (08:56→17:25)
[2016-03-12] MEDS: SODIUM CHLORIDE 0.9% FLUSH 5 ML FLUSH FLUSH SCH ×2 (08:57→20:19)
[2016-03-12] MEDS: CYANOCOBALAMIN 1000 MCG/ML VIAL IM SCH (08:57)
[2016-03-12] MEDS: TOBRAMYCIN SULFATE 0.3% OPTH OINT 3.5 GM TUBE LEFT EYE SCH ×3 (08:57→17:26)
[2016-03-12] MEDS: PANTOPRAZOLE SOD 40 MG DELAYED RELEASE TAB PO SCH (08:57)
[2016-03-12] MEDS: ACETAMINOPHEN 325 MG TAB PO SCH (08:57)
[2016-03-12] MEDS: DORZOLAMIDE/TIMOLOL OPTH SOLN 10 ML BTL LEFT EYE SCH ×2 (08:58→20:20)
--- NOTE | 2016-03-12 09:34 | HHI.PR ---
Subjective Remarks Follow-up near-syncope 03/09/16-patient seen and examined, no syncopal episodes since admission. Alert and oriented 3. No acute event overnight and currently afebrile. 03/10/16-patient seen and examined; stable and no complaints. Daughter by the bedside and would like her mom discharged to SNF when medically stable. Denies any chest pain or shortness of breath 03/11/16-patient seen and examined; she feels stable and no new events. 03/12/16-patient seen and examined, Venofer transfusion was started yesterday; patient very pleasant this morning stable and no complaint. Objective Vitals Vital Signs Date Time Temp Pulse Resp B/P Pulse Ox O2 Delivery O2 Flow Rate FiO2 03/12/16 08:48 64 03/12/16 08:00 98.7 68 20 127/59 94 03/12/16 04:00 98.0 60 18 141/66 99 03/12/16 03:09 Room Air 03/12/16 00:00 97.7 59 16 118/58 96 03/11/16 20:46 98.6 66 20 109/54 98 03/11/16 20:07 60 03/11/16 16:00 97.8 55 18 121/59 99 03/11/16 12:00 98.3 62 18 112/58 97 I/O 03/11/16 03/11/16 03/11/16 03/12/16 03/12/16 03/12/16 07:00 15:00 23:00 07:00 15:00 23:00 Intake Total 240 ml 820 ml 484 ml 120 ml Output Total 200 ml 900 ml 240 ml Balance 40 ml -80 ml 484 ml -120 ml Intake Oral 240 ml 720 ml 480 ml 120 ml IV Total 100 ml 4 ml Output Urine Total 200 ml 900 ml 240 ml # Voids 3 2 # Bowel Movements 0 2 1 0 Result Diagram: 03/11/16 1220 03/11/16 0737 Objective Remarks GENERAL: NAD SKIN: Warm and dry. HEAD: Normocephalic. EYES: No scleral icterus. No injection or drainage. NECK: Supple, trachea midline. No JVD or lymphadenopathy. CARDIOVASCULAR: Regular rate and rhythm without murmurs, gallops, or rubs. RESPIRATORY: Breath sounds equal bilaterally. No accessory muscle use. GASTROINTESTINAL: Abdomen soft, non-tender, nondistended. MUSCULOSKELETAL: No cyanosis, or edema. BACK: Nontender without obvious deformity. No CVA tenderness. 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 Workup in process to rule out neurocardiogenic syncope. Head CT with No acute intracranial abnormality. Carotid ultrasound without hemodynamically significant stenosis involving either carotid artery. 2-D echo with a 55-60% and normal systolic function. PT consult to treat for weakness 2-Dyspnea on exertion/peripheral edemalikely from CHF. 2-D echo 55-60%, RON inhibitor added to patient regiment and continue current diuretics. 3-Elevated troponinnonspecific. ACS ruled out per protocol with serial cardiac enzyme and no evidence of angina. Appreciate input from cardiology and recommended medical management 4-History of CLL: Appreciate input from Oncology and work up in progress including peripheral blood flow cytometry, serum protein electrophoresis, quantitative immunoglobulins. Check CT abdomen/pelvis and CT chest to evaluate for lymphadenopathy prior to discharge 5-Hypertension: Norvasc has been discontinued. Continue lisinopril, Lopressor however with holding parametria 6-UTI: s/p Levaquin 750 every 48H as urine culture negative 7-Other chronic medical conditions: Continue current meds 8-Bilateral lower extremity pain: Doppler ruled out DVT 9-Mild acute renal failure: Avoid all nephrotoxic drugs, monitor BUN and creatinine. Gentle IV fluid hydration. 10-Anemia of chronic disease as well as B-12 deficiency: Also with evidence of ANABEL; folate levels pending. 11-Iron deficiency anemia: Continue Venofer 200 mg daily 3 days until 03/13/16 12-Thrombocytopenia : 2/2 lymphoproliferative disorder DVT prophylaxis: SCD Discharge Planning Likely discharge in 1-2 days Archie Todd MD Mar 12, 2016 09:33
[2016-03-12] MEDS: IRON SUCROSE INJ 200 MG in SODIUM CHLORIDE 0.9% INJ 100 ML IV SCH (09:38)
--- NOTE | 2016-03-12 10:46 | PD.ONC.PN ---
Subjective Subjective Remarks Afebrile overnight. Patient resting comfortably without complaint. She says she feels well and excitedly talks about the visitors she had last night. Objective Data Date Time Temp Pulse Resp B/P Pulse Ox O2 Delivery O2 Flow Rate FiO2 03/12/16 08:48 64 03/12/16 08:00 98.7 68 20 127/59 94 03/12/16 04:00 98.0 60 18 141/66 99 03/12/16 03:09 Room Air 03/12/16 00:00 97.7 59 16 118/58 96 03/11/16 20:46 98.6 66 20 109/54 98 03/11/16 20:07 60 03/11/16 16:00 97.8 55 18 121/59 99 03/11/16 12:00 98.3 62 18 112/58 97 03/12/16 03/12/16 03/12/16 07:00 15:00 23:00 Intake Total 120 ml Output Total 240 ml Balance -120 ml Result Diagram: 03/11/16 1220 03/11/16 0737 Laboratory Results Laboratory Tests Test 03/11/16 12:20 White Blood Count 32.4 TH/MM3 Red Blood Count 2.50 MIL/MM3 Hemoglobin 8.1 GM/DL Hematocrit 25.0 % Mean Corpuscular Volume 99.9 FL Mean Corpuscular Hemoglobin 32.2 PG Mean Corpuscular Hemoglobin 32.2 % Concent Red Cell Distribution Width 17.0 % Platelet Count 69 TH/MM3 Mean Platelet Volume 9.7 FL Neutrophils (%) (Auto) % Lymphocytes (%) (Auto) % Monocytes (%) (Auto) % Eosinophils (%) (Auto) % Basophils (%) (Auto) % Neutrophils # (Auto) TH/MM3 Lymphocytes # (Auto) TH/MM3 Monocytes # (Auto) TH/MM3 Eosinophils # (Auto) TH/MM3 Basophils # (Auto) TH/MM3 CBC Comment AUTO DIFF Differential Total Cells 100 Counted Neutrophils % (Manual) 4 % Lymphocytes % 95 % Monocytes % 1 % Neutrophils # (Manual) 1.3 TH/MM3 Differential Comment FINAL DIFF MANUAL Smudge Cells PRESENT Platelet Estimate LOW Platelet Morphology Comment NORMAL Culture Results Microbiology Date/Time Procedure Status Source Growth 03/11/16 14:45 Stool Occult Blood (ELSI) - Final Complete Stool Stool HEMOCCULT NEGATIVE Administered Medications Medications (Trade) Dose Ordered Sig/Shwetha Route PRN Reason Start Time Stop Time Status Last Admin Dose Admin IV Flush (NS Flush) 2 ml BID FLUSH 03/08/16 21:00 03/12/16 08:57 Levofloxacin (Levaquin) 750 mg Q48H PO 03/09/16 21:00 03/11/16 21:00 Aspirin (Ecotrin Ec) 81 mg DAILY PO 03/09/16 09:00 03/12/16 08:56 Docusate Sodium (Colace) 100 mg DAILY PO 03/09/16 09:00 03/12/16 08:56 Dorzolamide/ Timolol (Cosopt 2-0.5% Opth Soln) 1 drop BID LEFT EYE 03/09/16 09:00 03/12/16 08:58 Gabapentin (Neurontin) 100 mg TID PO 03/09/16 09:00 03/12/16 08:56 Pravastatin Sodium (Pravachol) 40 mg BID PO 03/09/16 09:00 03/12/16 08:56 Metoprolol Succinate (Toprol Xl) 25 mg DAILY PO 03/09/16 09:00 03/12/16 08:56 Nitroglycerin (Nitro-Dur 0.1 Mg Patch.24hr) 0.1 patch DAILY T-DERMAL 03/09/16 09:00 03/12/16 08:56 Pantoprazole Sodium (Protonix) 40 mg DAILY PO 03/09/16 09:00 03/12/16 08:57 Tizanidine HCl (Zanaflex) 4 mg HS PO 03/09/16 21:00 03/11/16 21:51 Tobramycin Sulfate (Tobrex 0.3% Opth Oint) 1 applic TID LEFT EYE 03/09/16 09:00 03/12/16 08:57 Latanoprost (Xalatan 0.005% Opth Soln) 1 drop HS EACH EYE 03/08/16 22:30 03/11/16 21:51 Acetaminophen (Tylenol) 650 mg Q4H PRN PO TEMP>101F, PAIN 1-10, HEADACHE 03/10/16 17:30 03/10/16 19:15 Folic Acid 1 mg 1 mg DAILY PO 03/10/16 23:30 03/12/16 08:56 Iron Sucrose/ Sodium Chloride (Venofer Inj/NS Inj) 110 ml @ 110 mls/hr DAILY IV 03/11/16 09:00 03/13/16 09:59 03/12/16 09:38 Lisinopril (Prinivil) 5 mg DAILY PO 03/11/16 09:00 03/12/16 08:56 Acetaminophen (Tylenol) 650 mg UNSCH PO 03/11/16 09:15 03/13/16 23:00 03/12/16 08:57 Diphenhydramine HCl (Benadryl) 25 mg UNSCH PO 03/11/16 09:15 03/13/16 23:00 03/12/16 08:56 Cyanocobalamin (Vitamin B12 Inj) 1,000 mcg DAILY IM 03/12/16 09:00 03/12/16 08:57 Objective Remarks GENERAL: Pleasant elderly female sitting up in bed in nad. SKIN: Warm and dry. HEAD: Normocephalic. EYES: No injection or drainage. NECK: Supple, trachea midline. CARDIOVASCULAR: +S1/S2 RESPIRATORY: Breath sounds equal bilaterally. No accessory muscle use. GASTROINTESTINAL: Abdomen soft, non-tender, nondistended. EXTREMITIES: No cyanosis. NEUROLOGICAL: awake and alert, normal speech. moving extremities. 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 Garcia office, pending - CT chest/abdomen and pelvis to evaluate for lymphadenopathy - can be discharged from hematology standpoint and outpatient f/u in clinic after CT scans are completed (2) Anemia Status: Acute Plan: d/t leukemia, iron/B12 deficiency --s/p IV Venofer x 3 days ordered --B12 injections --monitor CBC (3) Thrombocytopenia Status: Chronic (4) Weakness generalized Status: Acute Assessment 80-year-old female with a past medical history of lymphoproliferative disorder such as CLL who was admitted to the hospital with presyncope, shortness of breath and not feeling well. 1. 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 Anemia due to Leukemia/B12 deficiency and iron deficiency 3. Thrombocytopenia 4. Lymphocytosis Plan 1. needs CT C/A/P--will check renal function today 2. supportive care. Attending Statement The exam, history, and the medical decision-making described in the above note were completed with the assistance of the mid-level provider. I reviewed and agree with the findings presented. I attest that I had a [id number] encounter with the patient on the same day, and personally performed and documented my assessment and findings in the medical record. OK to d/c home and f/u in oncology clinic when medically ready. CT chest abdomen and Pelvis w/o contrast before discharge Problem Qualifiers (1) Anemia: Liberty Godfrey Mar 12, 2016 10:46 Bartolo Hahn MD Mar 12, 2016 21:07
[2016-03-12 10:54] LABS: BICARBONATE 23.3 MEQ/L (21.0-32.0)
[2016-03-12 13:15] LABS: MEAN CELL VOLUME 101.2 FL (80.0-100.0); MEAN CORPUSCULAR HEMOGLOBIN 32.2 PG (27.0-34.0); MEAN CORPUSCULAR HGB CONC 31.9 % (32.0-36.0); PLATELET COUNT 72 TH/MM3 (150-450); RED BLOOD COUNT 2.57 MIL/MM3 (4.00-5.30); RED CELL DISTRIBUTION WIDTH 17.1 % (11.6-17.2); WHITE BLOOD COUNT 30.6 TH/MM3 (4.0-11.0)
[2016-03-12 13:18] LABS: HEMO FLAGS AUTO DIFF
[2016-03-12 13:50] LABS: NEUTROPHIL # MANUAL DIFF 0.9 TH/MM3 (1.8-7.7); PLATELET ESTIMATE SMEAR LOW (NORMAL); PLATELET MORPHOLOGY NORMAL (NORMAL); POLYS (SEG NEUTROPHILS) 3 % (16-70); SCAN/DIFF FINAL DIFF MANUAL; SMUDGE CELLS PRESENT PRESENT; WBC DIFF SAMPLE 100
[2016-03-12 13:51] LABS: TEARDROP RBCS 1+ (NORMAL)
[2016-03-12] MEDS ORDERED: DIATRIZOATE MEGLUM/DIATRIZOATE SOD 9 ML CUP PO ONE (16:45)
--- NOTE | 2016-03-12 17:58 | PD.CARD.PN ---
Subjective Subjective Remarks no complaints Objective Medications Current Medications Medications (Trade) Dose Ordered Sig/Shwetha Route Start Time Stop Time Status Last Admin (NS Flush) 2 ml UNSCH PRN FLUSH 03/08/16 20:15 (NS Flush) 2 ml BID FLUSH 03/08/16 21:00 03/12/16 08:57 (Zofran Inj) 4 mg Q6H PRN IVP 03/08/16 20:15 (Narcan Inj) 0.4 mg UNSCH PRN IV 03/08/16 20:15 (D50w (Vial) Inj) 25 ml UNSCH PRN IV PUSH 03/08/16 20:15 (Glucagon Inj) 1 mg UNSCH PRN OTHER 03/08/16 20:15 (Levaquin) 750 mg Q48H PO 03/09/16 21:00 03/11/16 21:00 (Ecotrin Ec) 81 mg DAILY PO 03/09/16 09:00 03/12/16 08:56 (Colace) 100 mg DAILY PO 03/09/16 09:00 03/12/16 08:56 (Cosopt 2-0.5% Opth Soln) 1 drop BID LEFT EYE 03/09/16 09:00 03/12/16 08:58 (Neurontin) 100 mg TID PO 03/09/16 09:00 03/12/16 17:25 (Pravachol) 40 mg BID PO 03/09/16 09:00 03/12/16 08:56 (Toprol Xl) 25 mg DAILY PO 03/09/16 09:00 03/12/16 08:56 (Nitro-Dur 0.1 Mg Patch.24hr) 0.1 patch DAILY T-DERMAL 03/09/16 09:00 03/12/16 08:56 (Protonix) 40 mg DAILY PO 03/09/16 09:00 03/12/16 08:57 (Zanaflex) 4 mg HS PO 03/09/16 21:00 03/11/16 21:51 (Tobrex 0.3% Opth Oint) 1 applic TID LEFT EYE 03/09/16 09:00 03/12/16 17:26 (Xalatan 0.005% Opth Soln) 1 drop HS EACH EYE 03/08/16 22:30 03/11/16 21:51 (Tylenol) 650 mg Q4H PRN PO 03/10/16 17:30 03/10/16 19:15 Folic Acid 1 mg 1 mg DAILY PO 03/10/16 23:30 03/12/16 08:56 (Venofer Inj/NS Inj) 110 ml @ 110 mls/hr DAILY IV 03/11/16 09:00 03/13/16 09:59 03/12/16 09:38 (Prinivil) 5 mg DAILY PO 03/11/16 09:00 03/12/16 08:56 (Pill Splitter) 1 ea UNSCH PRN OTHER 03/11/16 09:00 (Tylenol) 650 mg UNSCH PO 03/11/16 09:15 03/13/16 23:00 03/12/16 08:57 (Benadryl) 25 mg UNSCH PO 03/11/16 09:15 03/13/16 23:00 03/12/16 08:56 (Vitamin B12 Inj) 1,000 mcg DAILY IM 03/12/16 09:00 03/12/16 08:57 Vital Signs / I&O Vital Signs Date Time Temp Pulse Resp B/P Pulse Ox O2 Delivery O2 Flow Rate FiO2 03/12/16 12:00 97.9 59 20 125/60 96 03/12/16 08:48 64 03/12/16 08:00 98.7 68 20 127/59 94 03/12/16 08:00 Room Air 03/12/16 04:00 98.0 60 18 141/66 99 03/12/16 03:09 Room Air 03/12/16 00:00 97.7 59 16 118/58 96 03/11/16 20:46 98.6 66 20 109/54 98 03/11/16 20:07 60 I/O 03/11/16 03/11/16 03/11/16 03/12/16 03/12/16 03/12/16 07:00 15:00 23:00 07:00 15:00 23:00 Intake Total 240 ml 820 ml 484 ml 120 ml Output Total 200 ml 900 ml 240 ml Balance 40 ml -80 ml 484 ml -120 ml Intake Oral 240 ml 720 ml 480 ml 120 ml IV Total 100 ml 4 ml Output Urine Total 200 ml 900 ml 240 ml # Voids 3 2 # Bowel Movements 0 2 1 0 Physical Exam Alert Chest clear CV S1S2 RRR with 2/6 MOE (very mild by echo) No edema Laboratory Laboratory Tests Test 03/12/16 03/12/16 09:40 12:50 Sodium Level 139 MEQ/L Potassium Level 4.0 MEQ/L Chloride Level 108 MEQ/L Carbon Dioxide Level 23.3 MEQ/L Anion Gap 8 MEQ/L Blood Urea Nitrogen 27 MG/DL Creatinine 1.15 MG/DL Estimat Glomerular Filtration 55 ML/MIN Rate Random Glucose 121 MG/DL Calcium Level 9.4 MG/DL White Blood Count 30.6 TH/MM3 Red Blood Count 2.57 MIL/MM3 Hemoglobin 8.3 GM/DL Hematocrit 26.0 % Mean Corpuscular Volume 101.2 FL Mean Corpuscular Hemoglobin 32.2 PG Mean Corpuscular Hemoglobin 31.9 % Concent Red Cell Distribution Width 17.1 % Platelet Count 72 TH/MM3 Mean Platelet Volume 10.6 FL Neutrophils (%) (Auto) % Lymphocytes (%) (Auto) % Monocytes (%) (Auto) % Eosinophils (%) (Auto) % Basophils (%) (Auto) % Neutrophils # (Auto) TH/MM3 Lymphocytes # (Auto) TH/MM3 Monocytes # (Auto) TH/MM3 Eosinophils # (Auto) TH/MM3 Basophils # (Auto) TH/MM3 CBC Comment AUTO DIFF Differential Total Cells 100 Counted Neutrophils % (Manual) 3 % Lymphocytes % 96 % Monocytes % 1 % Neutrophils # (Manual) 0.9 TH/MM3 Differential Comment FINAL DIFF MANUAL Smudge Cells PRESENT Platelet Estimate LOW Platelet Morphology Comment NORMAL Tear Drop Cells 1+ Assessment and Plan Problem List: (1) Hypertensive heart disease with congestive heart failure Assessment and Plan: BP stable (2) CAD (coronary artery disease) Assessment and Plan: stable (3) Elevated troponin Assessment and Plan: not due to SD Assessment and Plan I am signing off but please call if any cardiac questions. Hitesh Damian MD Mar 12, 2016 17:58
[2016-03-12] MEDS: LATANOPROST 0.005% OPHT SOLN 2.5 ML BTL EACH EYE SCH (20:19)
[2016-03-12] MEDS ORDERED: IOHEXOL 350 MG/ML 10 ML VIAL (for RAD DIAG) IV ONE (22:30)
--- NOTE | 2016-03-12 22:57 | RADRPT ---
EXAM DATE/TIME: 03/12/2016 22:23 [facility] COMPARISON: No previous studies available for comparison. INDICATIONS : Weakness; evaluate for lymphadenopathy. IV CONTRAST: 100 cc Omnipaque 350 (iohexol) IV ; Cumulative dose for multiple exams. RADIATION DOSE: 11.53 CTDIvol (mGy) ; Combined studies - Thorax/Abdomen/Pelvis MEDICAL HISTORY : Hypertension. Congestive heart failure. Diabetes mellitus type 2.Ovarian CA SURGICAL HISTORY : Appendectomy. CABGCholecystectomy.Hysterectomy ENCOUNTER: Initial ACUITY: 1 day PAIN SCALE: Non-responsive LOCATION: chest TECHNIQUE: Volumetric scanning of the chest was performed. Using automated exposure control and adjustment of t he mA and/or kV according to patient size, radiation dose was kept as low as reasonably achievable to obtain optimal diagnostic quality images. FINDINGS: Lung bases demonstrate minimal linear scarring at the bases. No focal lung consolidation. Stable 5 mm nodule right upper lobe compared with 2010. No pleural or pericardial effusion. There are severe coronary calcifications. Postop CABG. Heart size enlarged. No acute bony abnormaliti es. See abdomen CT for findings below the diaphragm. CONCLUSION: 1. Severe coronary calcifications postoperative CABG. No pathologically enlarged lymph nodes identifi ed within the chest. No effusions. Spleen is enlarged. See abdomen CT report. Damaso Chamberlain MD on March 12, 2016 at 22:50 Board Certified Radiologist. This report was verified electronically.
--- NOTE | 2016-03-12 23:01 | RADRPT ---
EXAM DATE/TIME: 03/12/2016 22:23 [facility] COMPARISON: No previous studies available for comparison. INDICATIONS : Abdominal pain and weakness; evaluate for lymphadenopathy. IV CONTRAST: 100 cc Omnipaque 350 (iohexol) IV ; Cumulative dose for multiple exams. ORAL CONTRAST: No oral contrast ingested. RADIATION DOSE: 11.53 CTDIvol (mGy) ; Combined studies - Thorax/Abdomen/Pelvis MEDICAL HISTORY : Hypertension. Congestive heart failure. Diabetes mellitus type 2.Ovarian CA SURGICAL HISTORY : Appendectomy. CABGCholecystectomy.Hysterectomy ENCOUNTER: Initial ACUITY: 1 day PAIN SCALE: Non-responsive LOCATION: abdomen TECHNIQUE: Volumetric scanning of the abdomen and pelvis was performed. Using automated exposure control and ad justment of the mA and/or kV according to patient size, radiation dose was kept as low as reasonably achievable to obtain optimal diagnostic quality images. FINDINGS: No significant abnormality in the liver. Spleen is enlarged at 19.2 cm. Postoperative cholecystectomy . No significant abnormality of the adrenals, kidneys or pancreas. No bowel obstruction. No free air or free fluid. Bladder is distended. Right inguinal hernia present containing bowel CONCLUSION: 1. Splenomegaly to 19.2 cm. No adenopathy in the abdomen and pelvis. Distended bladder. Mild constipa tion. 2. Small right-sided inguinal hernia containing several loops of small bowel without evidence for inc arceration or obstruction. Damaso Chamberlain MD on March 12, 2016 at 22:56 Board Certified Radiologist. This report was verified electronically.
[2016-03-13] VITALS (7 sets, daily range): BP systolic 116–181; BP diastolic 57–76; PULSE 54–68; RESP 16–20; TEMP 97.6–98.9; O2SAT 94–98
[2016-03-13] MEDS: INSULIN ASPART SUPPLEMENTAL SCALE SQ SCH ×4 (06:30→20:35)
[2016-03-13 08:27] LABS: MEAN CELL VOLUME 99.7 FL (80.0-100.0); MEAN CORPUSCULAR HEMOGLOBIN 32.4 PG (27.0-34.0); MEAN CORPUSCULAR HGB CONC 32.5 % (32.0-36.0); PLATELET COUNT 64 TH/MM3 (150-450); RED BLOOD COUNT 2.51 MIL/MM3 (4.00-5.30); RED CELL DISTRIBUTION WIDTH 16.8 % (11.6-17.2); WHITE BLOOD COUNT 28.6 TH/MM3 (4.0-11.0)
[2016-03-13 08:32] LABS: HEMO FLAGS AUTO DIFF
[2016-03-13] MEDS: IRON SUCROSE INJ 200 MG in SODIUM CHLORIDE 0.9% INJ 100 ML IV SCH (08:38)
[2016-03-13] MEDS: DOCUSATE SODIUM 100 MG CAP PO SCH (08:39)
[2016-03-13] MEDS: GABAPENTIN 100 MG CAP PO SCH ×3 (08:39→18:19)
[2016-03-13] MEDS: PRAVASTATIN SOD 40 MG TAB PO SCH ×2 (08:39→20:34)
[2016-03-13] MEDS: PANTOPRAZOLE SOD 40 MG DELAYED RELEASE TAB PO SCH (08:39)
[2016-03-13] MEDS: LISINOPRIL 10 MG TAB PO SCH (08:39)
[2016-03-13] MEDS: ASPIRIN EC 81 MG TABEC PO SCH (08:39)
[2016-03-13] MEDS: METOPROLOL SUCCINATE 25 MG EXTENDED RELEASE TAB PO SCH (08:39)
[2016-03-13] MEDS: FOLIC ACID 1 MG TAB PO SCH (08:39)
[2016-03-13 08:40] LABS: BICARBONATE 23.9 MEQ/L (21.0-32.0); POTASSIUM 4.1 MEQ/L (3.5-5.1)
[2016-03-13] MEDS: DORZOLAMIDE/TIMOLOL OPTH SOLN 10 ML BTL LEFT EYE SCH ×2 (08:40→20:36)
[2016-03-13] MEDS: TOBRAMYCIN SULFATE 0.3% OPTH OINT 3.5 GM TUBE LEFT EYE SCH ×3 (08:40→18:21)
[2016-03-13] MEDS: NITROGLYCERIN 0.1 MG/HR PATCH T-DERMAL SCH (08:41)
[2016-03-13] MEDS: CYANOCOBALAMIN 1000 MCG/ML VIAL IM SCH (09:00)
[2016-03-13] MEDS: diphenhydrAMINE HCL 25 MG CAP PO SCH (09:27)
[2016-03-13] MEDS: ACETAMINOPHEN 325 MG TAB PO SCH (09:27)
--- NOTE | 2016-03-13 10:01 | HHI.PR ---
Subjective Remarks Follow-up near-syncope 03/09/16-patient seen and examined, no syncopal episodes since admission. Alert and oriented 3. No acute event overnight and currently afebrile. 03/10/16-patient seen and examined; stable and no complaints. Daughter by the bedside and would like her mom discharged to SNF when medically stable. Denies any chest pain or shortness of breath 03/11/16-patient seen and examined; she feels stable and no new events. 03/12/16-patient seen and examined, Venofer transfusion was started yesterday; patient very pleasant this morning stable and no complaint. 03/13/16-patient seen and examined-no acute event overnight and patient is stable. CT chest as well as CT abdomen unremarkable. Objective Vitals Vital Signs Date Time Temp Pulse Resp B/P Pulse Ox O2 Delivery O2 Flow Rate FiO2 03/13/16 08:00 98.1 61 20 122/60 97 03/13/16 04:00 97.9 63 16 122/59 96 03/13/16 00:00 98.0 58 17 116/57 98 03/12/16 20:05 Room Air 03/12/16 20:00 97.5 56 18 125/62 95 03/12/16 19:59 59 03/12/16 16:00 98.1 55 20 131/58 95 03/12/16 12:00 97.9 59 20 125/60 96 I/O 03/12/16 03/12/16 03/12/16 03/13/16 03/13/16 03/13/16 07:00 15:00 23:00 07:00 15:00 23:00 Intake Total 120 ml 480 ml 482 ml 180 ml Output Total 240 ml 300 ml 900 ml 300 ml Balance -120 ml 180 ml -418 ml -120 ml Intake Oral 120 ml 480 ml 480 ml 180 ml IV Total 2 ml Output Urine Total 240 ml 300 ml 900 ml 300 ml # Bowel Movements 0 1 Result Diagram: 03/13/16 0740 03/13/16 0740 Imaging Last Impressions Chest CT 03/12/16 0000 Signed Impressions: Service Date/Time: Saturday, March 12, 2016 22:23 - CONCLUSION: 1. Severe coronary calcifications postoperative CABG. No pathologically enlarged lymph nodes identified within the chest. No effusions. Spleen is enlarged. See abdomen CT report. Damaso Chamberlain MD Abdomen/Pelvis CT 03/12/16 0000 Signed Impressions: Service Date/Time: Saturday, March 12, 2016 22:23 - CONCLUSION: 1. Splenomegaly to 19.2 cm. No adenopathy in the abdomen and pelvis. Distended bladder. Mild constipation. 2. Small right-sided inguinal hernia containing several loops of small bowel without evidence for incarceration or obstruction. Damaso Chamberlain MD Head CT 03/08/16 1711 Signed Impressions: Service Date/Time: Tuesday, March 08, 2016 17:33 - CONCLUSION: No acute intracranial abnormality. Giovanny Belcher MD Chest X-Ray 03/08/16 1708 Signed Impressions: Service Date/Time: Tuesday, March 08, 2016 17:12 - CONCLUSION: Trace bibasilar atelectasis and borderline cardiomegaly. Previous CABG. Giovanny Belcher MD Lower Extremity Ultrasound 03/08/16 0000 Signed Impressions: Service Date/Time: Tuesday, March 08, 2016 22:57 - CONCLUSION: Normal examination. Troy Ignacio Jr., MD Carotid Artery Ultrasound 03/08/16 0000 Signed Impressions: Service Date/Time: Tuesday, March 08, 2016 23:15 - CONCLUSION: 1. Calcified atherosclerotic plaque without hemodynamically significant stenosis involving either carotid artery. 2. Antegrade flow involving both vertebral arteries. Troy Ignacio Jr., MD Objective Remarks GENERAL: NAD SKIN: Warm and dry. HEAD: Normocephalic. EYES: No scleral icterus. No injection or drainage. NECK: Supple, trachea midline. No JVD or lymphadenopathy. CARDIOVASCULAR: Regular rate and rhythm without murmurs, gallops, or rubs. RESPIRATORY: Breath sounds equal bilaterally. No accessory muscle use. GASTROINTESTINAL: Abdomen soft, non-tender, nondistended. MUSCULOSKELETAL: No cyanosis, or edema. BACK: Nontender without obvious deformity. No CVA tenderness. 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 Workup in process to rule out neurocardiogenic syncope. Head CT with No acute intracranial abnormality. Carotid ultrasound without hemodynamically significant stenosis involving either carotid artery. 2-D echo with a 55-60% and normal systolic function. PT consult to treat for weakness 2-Dyspnea on exertion/peripheral edemalikely from CHF. 2-D echo 55-60%, RON inhibitor added to patient regiment and continue current diuretics. 3-Elevated troponinnonspecific. ACS ruled out per protocol with serial cardiac enzyme and no evidence of angina. Appreciate input from cardiology and recommended medical management 4-History of CLL: Appreciate input from Oncology and work up in progress including peripheral blood flow cytometry, serum protein electrophoresis, quantitative immunoglobulins. CT abdomen/pelvis and CT chest noted and reviewed by me with no adenopathy in abdomen and pelvic 5-Hypertension: Norvasc has been discontinued. Continue lisinopril, Lopressor however with holding parametria 6-UTI: s/p Levaquin 750 every 48H as urine culture negative 7-Other chronic medical conditions: Continue current meds 8-Bilateral lower extremity pain: Doppler ruled out DVT 9-Mild acute renal failure: Resolved with gentle IV fluid hydration Avoid all nephrotoxic drugs, monitor BUN and creatinine. 10-Anemia of chronic disease as well as B-12 deficiency: Also with evidence of ANABEL; folate levels pending. 11-Iron deficiency anemia: Continue Venofer 200 mg daily 3 days until today 09/20 12-Thrombocytopenia : 2/2 lymphoproliferative disorder DVT prophylaxis: SCD Discharge Planning Likely discharge in 1-2 days Archie Todd MD Mar 13, 2016 10:00
--- NOTE | 2016-03-13 10:12 | HHI.DS ---
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 Patient reported that for the past few days, she has been having wooziness and dizziness. She states she did not fall. She did not pass out. However she felt as if she would. She denies vomiting but was nauseous. However her main complaint is that of shortness of breath. Daughter at the bedside stated that this shortness of breath has been going on for a few weeks now. Patient denies fever. Denies cough. Reports of peripheral edema. Patient also states that she finally decided to come to hospital because her blood sugars have been high. 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 She also reports of high blood pressure at home. Again stated her blood pressure in the morning is around 120 systolic. However as the day goes by it was 200s systolic. Daughter at the bedside also stated that patient was diagnosed with lymphoma by Dr. Lynn. He did obtain bone marrow biopsy. However there was no treatment needed at that time. He now has left the [facility] practice and is only practicing at [place] and he has referred her to see [facility]. stated patient for the past few weeks is also becoming more symptomatic with shortness of breath, weakness, night sweats. She is unsure whether the actual disease is lymphoma or CLL. Patient otherwise lives by herself. She usually gets her meals cooked by her daughter on a weekly basis. Otherwise she still does her own laundry. Ambulates without assistance. CBC/BMP: 03/13/16 0740 03/13/16 0740 Significant Findings Laboratory Tests Test 1/07/2103/11/16 03/12/16 03/12/16 07:37 12:20 09:40 12:50 Blood Urea Nitrogen 30 MG/DL (7-18) 27 MG/DL (7-18) Creatinine 1.19 MG/DL 1.15 MG/DL (0.50-1.00) (0.50-1.00) Estimat Glomerular Filtration 53 ML/MIN (>89) 55 ML/MIN (>89) Rate White Blood Count 32.4 TH/MM3 30.6 TH/MM3 (4.0-11.0) (4.0-11.0) Red Blood Count 2.50 MIL/MM3 2.57 MIL/MM3 (4.00-5.30) (4.00-5.30) Hemoglobin 8.1 GM/DL 8.3 GM/DL (11.6-15.3) (11.6-15.3) Hematocrit 25.0 % 26.0 % (35.0-46.0) (35.0-46.0) Platelet Count 69 TH/MM3 72 TH/MM3 (150-450) (150-450) Neutrophils % (Manual) 4 % (16-70) 3 % (16-70) Lymphocytes % 95 % (9-44) 96 % (9-44) Neutrophils # (Manual) 1.3 TH/MM3 0.9 TH/MM3 (1.8-7.7) (1.8-7.7) Platelet Estimate LOW (NORMAL) LOW (NORMAL) Chloride Level 108 MEQ/L (98-107) Random Glucose 121 MG/DL (74-106) Mean Corpuscular Volume 101.2 FL (80.0-100.0) Mean Corpuscular Hemoglobin 31.9 % Concent (32.0-36.0) Tear Drop Cells 1+ (NORMAL) Test 03/13/16 07:40 White Blood Count 28.6 TH/MM3 (4.0-11.0) Red Blood Count 2.51 MIL/MM3 (4.00-5.30) Hemoglobin 8.1 GM/DL (11.6-15.3) Hematocrit 25.0 % (35.0-46.0) Platelet Count 64 TH/MM3 (150-450) Chloride Level 110 MEQ/L (98-107) Blood Urea Nitrogen 24 MG/DL (7-18) Estimat Glomerular Filtration 72 ML/MIN (>89) Rate Imaging Last Impressions Chest CT 03/12/16 0000 Signed Impressions: Service Date/Time: Saturday, March 12, 2016 22:23 - CONCLUSION: 1. Severe coronary calcifications postoperative CABG. No pathologically enlarged lymph nodes identified within the chest. No effusions. Spleen is enlarged. See abdomen CT report. Damaso Chamberlain MD Abdomen/Pelvis CT 03/12/16 0000 Signed Impressions: Service Date/Time: Saturday, March 12, 2016 22:23 - CONCLUSION: 1. Splenomegaly to 19.2 cm. No adenopathy in the abdomen and pelvis. Distended bladder. Mild constipation. 2. Small right-sided inguinal hernia containing several loops of small bowel without evidence for incarceration or obstruction. Damaso Chamberlain MD Head CT 03/08/16 1711 Signed Impressions: Service Date/Time: Tuesday, March 08, 2016 17:33 - CONCLUSION: No acute intracranial abnormality. Giovanny Belcher MD Chest X-Ray 03/08/16 1708 Signed Impressions: Service Date/Time: Tuesday, March 08, 2016 17:12 - CONCLUSION: Trace bibasilar atelectasis and borderline cardiomegaly. Previous CABG. Giovanny Belcher MD Lower Extremity Ultrasound 03/08/16 0000 Signed Impressions: Service Date/Time: Tuesday, March 08, 2016 22:57 - CONCLUSION: Normal examination. Troy Ignacio Jr., MD Carotid Artery Ultrasound 03/08/16 0000 Signed Impressions: Service Date/Time: Tuesday, March 08, 2016 23:15 - CONCLUSION: 1. Calcified atherosclerotic plaque without hemodynamically significant stenosis involving either carotid artery. 2. Antegrade flow involving both vertebral arteries. Troy Ignacio Jr., MD PE at Discharge GENERAL: NAD SKIN: Warm and dry. HEAD: Normocephalic. EYES: No scleral icterus. No injection or drainage. NECK: Supple, trachea midline. No JVD or lymphadenopathy. CARDIOVASCULAR: Regular rate and rhythm without murmurs, gallops, or rubs. RESPIRATORY: Breath sounds equal bilaterally. No accessory muscle use. GASTROINTESTINAL: Abdomen soft, non-tender, nondistended. MUSCULOSKELETAL: No cyanosis, or edema. BACK: Nontender without obvious deformity. No CVA tenderness. Hospital Course Patient was admitted secondary to near syncope likely due to generalized weakness however neurocardiogenic syncope was ruled out as patient has unremarkable head CT, 2-D echo with EF of 55-60%. Secondary to elevated troponin cardiology was consulted but recommended medical management. She was continued on her hypertensive medication except Norvasc secondary to episode of soft BP. He was diagnosed with iron deficiency anemia for which she was transfused Venofer 200 mg daily 3 days. Oncology was consulted secondary to patient history of CLL and radiographic studies including CT abdomen/pelvis and chest CT did not reveal any adenopathy. Initially treated for abnormal UA with IV Levaquin however this was discontinued after urine culture resulted negative. PT was consulted and DVT and GI were provided. Vitals remained stable prior to discharge. Pt Condition on Discharge: Stable Discharge Disposition: Discharge to SNF Discharge Time: > 30 minutes Discharge Instructions DIET: Follow Instructions for: Diabetic Diet Activities you can perform: Regular-No Restrictions Follow up Referrals: Oncology PCP Follow-up - 2-3 Days Continued Medications: Alendronate (Fosamax) 70 Mg Tab 70 MG PO WEEKLY Osteoporosis Treatment #4 Ref 0 TAB Amlodipine (Amlodipine) 10 Mg Tab 10 MG PO DAILY Blood Pressure Management #[address] (Aspirin Adult Low Strength) 81 Mg Tabdr 81 MG PO DAILY TAB Docusate Sodium (Stool Softener) 100 Mg Cap 1 CAP PO DAILY Dorzolamide-Timolol Opth Drops (Dorzolamide-Timolol Opth Drops) 22.3-6.8 Mg/Ml Soln 1 DROP LEFT EYE BID Glaucoma Ref 0 BOTTLE Furosemide (Lasix) 20 Mg Tab 20 MG PO DAILY #30 Ref 0 TAB Gabapentin (Gabapentin) 100 Mg Cap 100 MG PO TID #90 Ref 0 CAP Lovastatin (Lovastatin) 40 Mg Tab 40 MG PO BID Cholesterol Management #30 Ref 0 TAB Metformin (Metformin) 500 Mg Tab 500 MG PO BID With meals Blood Sugar Management #60 Ref 0 TAB Metoprolol Succinate ER 24 HR (Toprol XL) 25 Mg Tab 25 MG PO DAILY #30 Ref 0 TAB Nitroglycerin Patch 24 HR (Nitro-Dur Patch 24 HR) 0.1 Mg/Hr Patch 0.1 MG T-DERMAL DAILY Chest Pain #30 Ref 0 PATCH Nitroglycerin SL (Nitrostat SL) 0.4 Mg Subl 0.4 MG SL DIRECTED 1 tablet under the tongue as needed for chest pain. Repeat every 5 minutes for a total of 3 DOSES or call 911 if NO relief. PRN CHEST PAIN #100 Ref 0 TAB.SL Pantoprazole (Pantoprazole) 40 Mg Tab 40 MG PO DAILY Reflux #30 Ref 0 TAB Tizanidine (Tizanidine) 4 Mg Tab 4 MG PO HS Muscle Spasm Ref 0 TAB Tobramycin Opth Oint (Tobrex Opth Oint) 0.3 % Oint 1 APPLIC LEFT EYE TID Infection #1 Ref 0 TUBE Travoprost Opth Drops (Travatan Z Opth Drops) 0.004 % Soln 1 DROP EACH EYE HS Glaucoma #1 Ref 0 BOTTLE Archie Todd MD Mar 13, 2016 10:11
[2016-03-13 11:13] LABS: BASOPHILS 1 % (0-2); NEUTROPHIL # MANUAL DIFF 1.4 TH/MM3 (1.8-7.7); POLYS (SEG NEUTROPHILS) 5 % (16-70); WBC DIFF SAMPLE 100
[2016-03-13 11:14] LABS: PLATELET ESTIMATE SMEAR LOW (NORMAL); PLATELET MORPHOLOGY NORMAL (NORMAL); SCAN/DIFF FINAL DIFF MANUAL; SMUDGE CELLS PRESENT PRESENT
[2016-03-13] MEDS: SODIUM CHLORIDE 0.9% FLUSH 5 ML FLUSH FLUSH SCH ×2 (13:59→20:35)
--- NOTE | 2016-03-13 15:21 | HHI.FF ---
Face to Face Verification Diagnosis: (1) Near syncope (2) ANABEL (iron deficiency anemia) (3) Anemia of chronic disease (4) Lymphoproliferative disorder Physical Therapy Order: Evaluate and Treat Home Health Nursing Order: Signs/symptoms of disease process I have seen patient Romy Ramirez on 03/13/16. My clinical findings support the need for the requested home health care services because: Deconditioned w/ increased weakness I certify that my clinical findings support that this patient is homebound because: Unsteady gait/balance Poor cardiac reserve Archie Todd MD Mar 13, 2016 15:20
[2016-03-13] MEDS: LEVOFLOXACIN 750 MG TAB PO SCH (20:34)
[2016-03-13] MEDS: LATANOPROST 0.005% OPHT SOLN 2.5 ML BTL EACH EYE SCH (20:35)
[2016-03-14] VITALS (7 sets, daily range): BP systolic 60–148; BP diastolic 58–69; PULSE 57–75; RESP 18; TEMP 97.2–99.7; O2SAT 94–99
[2016-03-14] MEDS: INSULIN ASPART SUPPLEMENTAL SCALE SQ SCH ×4 (06:16→20:35)
[2016-03-14] MEDS: LISINOPRIL 10 MG TAB PO SCH (08:47)
[2016-03-14] MEDS: PANTOPRAZOLE SOD 40 MG DELAYED RELEASE TAB PO SCH (08:47)
[2016-03-14] MEDS: GABAPENTIN 100 MG CAP PO SCH ×2 (08:48→14:06)
[2016-03-14] MEDS: DOCUSATE SODIUM 100 MG CAP PO SCH (08:48)
[2016-03-14] MEDS: NITROGLYCERIN 0.1 MG/HR PATCH T-DERMAL SCH (08:48)
[2016-03-14] MEDS: PRAVASTATIN SOD 40 MG TAB PO SCH ×2 (08:48→20:34)
[2016-03-14] MEDS: ASPIRIN EC 81 MG TABEC PO SCH (08:48)
[2016-03-14] MEDS: METOPROLOL SUCCINATE 25 MG EXTENDED RELEASE TAB PO SCH (08:48)
[2016-03-14] MEDS: FOLIC ACID 1 MG TAB PO SCH (08:48)
[2016-03-14] MEDS: DORZOLAMIDE/TIMOLOL OPTH SOLN 10 ML BTL LEFT EYE SCH ×2 (08:49→20:36)
[2016-03-14] MEDS: TOBRAMYCIN SULFATE 0.3% OPTH OINT 3.5 GM TUBE LEFT EYE SCH ×3 (08:49→20:38)
[2016-03-14] MEDS: SODIUM CHLORIDE 0.9% FLUSH 5 ML FLUSH FLUSH SCH ×2 (08:54→20:34)
[2016-03-14] MEDS: CYANOCOBALAMIN 1000 MCG/ML VIAL IM SCH (08:57)
--- NOTE | 2016-03-14 13:04 | HHI.PR ---
Subjective Remarks No acute events overnight. Afebrile, vital signs stable. Patient states she feels well today. She was supposed to be discharged to a SNF yesterday however prior authorization had not been completed. Patient states that she is ready to go as soon as the insurance issues are worked out. Objective Vitals Vital Signs Date Time Temp Pulse Resp B/P Pulse Ox O2 Delivery O2 Flow Rate FiO2 03/14/16 12:00 98.4 59 18 123/58 98 03/14/16 08:00 98.5 61 18 148/69 96 03/14/16 04:00 98.6 60 18 145/65 94 03/14/16 00:00 97.2 57 18 147/68 97 03/13/16 20:06 59 03/13/16 20:00 Room Air 03/13/16 20:00 97.6 68 17 181/76 94 03/13/16 20:00 98.3 59 17 137/65 97 03/13/16 16:00 98.9 62 20 120/60 97 I/O 03/13/16 03/13/16 03/13/16 03/14/16 03/14/16 03/14/16 07:00 15:00 23:00 07:00 15:00 23:00 Intake Total 180 ml 480 ml 480 ml 100 ml Output Total 300 ml 700 ml Balance -120 ml 480 ml 480 ml -600 ml Intake Oral 180 ml 480 ml 480 ml 100 ml Output Urine Total 300 ml 700 ml # Voids 2 3 # Bowel Movements 0 0 Result Diagram: 03/13/16 0740 03/13/16 0740 Objective Remarks Gen.: No acute distress Head: Normocephalic. Atraumatic. EENT: Pupils equal round and reactive to light. Nose without drainage. Airway intact. Throat without injection. Cardiovascular: Regular rate and rhythm. No murmurs, rubs or gallops. Respiratory: Lungs clear to auscultation bilaterally. No wheezes or rhonchi. Abdomen: Soft, nontender, nondistended. No peritoneal signs. Musculoskeletal: No gross deformities. No edema. Skin: No obvious rashes or erythema. Neuro: Sensory and motor grossly intact. Cranial nerves II through XII grossly intact. 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 Head CT with no acute intracranial abnormality. Carotid ultrasound without hemodynamically significant stenosis involving either carotid artery. 2-D echo with a 55-60% and normal systolic function. PT consult to treat for weakness. 2-Dyspnea on exertion/peripheral edemalikely from CHF. 2-D echo 55-60%, RON inhibitor added to patient regiment and continue current diuretics. 3-Elevated troponinnonspecific. ACS ruled out per protocol with serial cardiac enzyme and no evidence of angina. Appreciate input from cardiology and recommended medical management 4-History of CLL: Appreciate input from Oncology and work up in progress including peripheral blood flow cytometry, serum protein electrophoresis, quantitative immunoglobulins. CT abdomen/pelvis and CT chest with no adenopathy in abdomen and pelvic 5-Hypertension: Norvasc has been discontinued. Continue lisinopril, Lopressor however with holding parameters 6-UTI: s/p Levaquin 750 every 48H as urine culture negative 7-Other chronic medical conditions: Continue current meds 8-Bilateral lower extremity pain: Doppler ruled out DVT 9-Mild acute renal failure: Resolved with gentle IV fluid hydration Avoid all nephrotoxic drugs, monitor BUN and creatinine. 10-Anemia of chronic disease as well as B-12 deficiency: Also with evidence of ANABEL; folate levels pending. 11-Iron deficiency anemia: Completed Venofer 200 mg daily 3 days 12-Thrombocytopenia : 2/2 lymphoproliferative disorder DVT prophylaxis: SCD Case reviewed and discussed with the resident. Agree with plan of care as discussed with me and documented in the resident note. Discharge Planning To SNF once prior authorization approved Azucena Wei MD R3 Mar 14, 2016 13:04 Malorie Duron MD Mar 14, 2016 15:52
[2016-03-14] MEDS: LATANOPROST 0.005% OPHT SOLN 2.5 ML BTL EACH EYE SCH (20:36)
[2016-03-15] VITALS (7 sets, daily range): BP systolic 125–154; BP diastolic 60–81; PULSE 58–64; RESP 17–20; TEMP 97.5–99.4; O2SAT 95–99
[2016-03-15] MEDS: INSULIN ASPART SUPPLEMENTAL SCALE SQ SCH ×4 (05:44→21:00)
[2016-03-15] MEDS: SODIUM CHLORIDE 0.9% FLUSH 5 ML FLUSH FLUSH SCH ×2 (09:00→20:59)
[2016-03-15] MEDS: FOLIC ACID 1 MG TAB PO SCH (09:26)
[2016-03-15] MEDS: PANTOPRAZOLE SOD 40 MG DELAYED RELEASE TAB PO SCH (09:26)
[2016-03-15] MEDS: PRAVASTATIN SOD 40 MG TAB PO SCH ×2 (09:26→21:02)
[2016-03-15] MEDS: DOCUSATE SODIUM 100 MG CAP PO SCH (09:26)
[2016-03-15] MEDS: METOPROLOL SUCCINATE 25 MG EXTENDED RELEASE TAB PO SCH (09:26)
[2016-03-15] MEDS: LISINOPRIL 10 MG TAB PO SCH (09:26)
[2016-03-15] MEDS: NITROGLYCERIN 0.1 MG/HR PATCH T-DERMAL SCH (09:27)
[2016-03-15] MEDS: ASPIRIN EC 81 MG TABEC PO SCH (09:28)
[2016-03-15] MEDS: CYANOCOBALAMIN 1000 MCG/ML VIAL IM SCH (09:32)
[2016-03-15] MEDS: DORZOLAMIDE/TIMOLOL OPTH SOLN 10 ML BTL LEFT EYE SCH ×2 (09:33→21:01)
[2016-03-15] MEDS: TOBRAMYCIN SULFATE 0.3% OPTH OINT 3.5 GM TUBE LEFT EYE SCH ×3 (09:34→18:26)
[2016-03-15] MEDS: GABAPENTIN 100 MG CAP PO SCH ×3 (09:37→18:24)
--- NOTE | 2016-03-15 10:45 | HHI.PR ---
Subjective Remarks In the chair, denies any cp, sob, n/v/d/c. Family at bedside. Awaiting for SNF. Objective Vitals Vital Signs Date Time Temp Pulse Resp B/P Pulse Ox O2 Delivery O2 Flow Rate FiO2 03/15/16 08:00 98.4 59 20 143/65 97 03/15/16 05:46 98.8 58 20 132/64 97 03/15/16 00:24 99.4 61 20 126/60 99 03/14/16 20:39 99.7 64 18 60/ 97 03/14/16 20:36 73 03/14/16 20:00 Room Air 03/14/16 16:00 98.3 59 18 142/65 99 03/14/16 12:00 98.4 59 18 123/58 98 I/O 03/14/16 03/14/16 03/14/16 03/15/16 03/15/16 03/15/16 06:59 14:59 22:59 06:59 14:59 22:59 Intake Total 100 ml 480 ml Output Total 700 ml 1500 ml 500 ml Balance -600 ml -1020 ml -500 ml Intake Oral 100 ml 480 ml Output Urine Total 700 ml 1500 ml 500 ml # Voids 1 # Bowel Movements 0 2 Result Diagram: 03/13/16 0740 03/13/16 0740 Imaging Last Impressions Chest CT 03/12/16 0000 Signed Impressions: Service Date/Time: Saturday, March 12, 2016 22:23 - CONCLUSION: 1. Severe coronary calcifications postoperative CABG. No pathologically enlarged lymph nodes identified within the chest. No effusions. Spleen is enlarged. See abdomen CT report. Damaso Chamberlain MD Abdomen/Pelvis CT 03/12/16 0000 Signed Impressions: Service Date/Time: Saturday, March 12, 2016 22:23 - CONCLUSION: 1. Splenomegaly to 19.2 cm. No adenopathy in the abdomen and pelvis. Distended bladder. Mild constipation. 2. Small right-sided inguinal hernia containing several loops of small bowel without evidence for incarceration or obstruction. Damaso Chamberlain MD Head CT 03/08/16 1711 Signed Impressions: Service Date/Time: Tuesday, March 08, 2016 17:33 - CONCLUSION: No acute intracranial abnormality. Giovanny Belcher MD Chest X-Ray 03/08/16 1708 Signed Impressions: Service Date/Time: Tuesday, March 08, 2016 17:12 - CONCLUSION: Trace bibasilar atelectasis and borderline cardiomegaly. Previous CABG. Giovanny Belcher MD Lower Extremity Ultrasound 03/08/16 0000 Signed Impressions: Service Date/Time: Tuesday, March 08, 2016 22:57 - CONCLUSION: Normal examination. Troy Ignacio Jr., MD Carotid Artery Ultrasound 03/08/16 0000 Signed Impressions: Service Date/Time: Tuesday, March 08, 2016 23:15 - CONCLUSION: 1. Calcified atherosclerotic plaque without hemodynamically significant stenosis involving either carotid artery. 2. Antegrade flow involving both vertebral arteries. Troy Ignacio Jr., MD Objective Remarks Gen.: No acute distress Head: Normocephalic. Atraumatic. EENT: Pupils equal round and reactive to light. Nose without drainage. Airway intact. Throat without injection. Cardiovascular: Regular rate and rhythm. No murmurs, rubs or gallops. Respiratory: Lungs clear to auscultation bilaterally. No wheezes or rhonchi. Abdomen: Soft, nontender, nondistended. No peritoneal signs. Musculoskeletal: No gross deformities. No edema. Skin: No obvious rashes or erythema. Neuro: Sensory and motor grossly intact. Cranial nerves II through XII grossly intact. 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 Head CT with no acute intracranial abnormality. Carotid ultrasound without hemodynamically significant stenosis involving either carotid artery. 2-D echo with a 55-60% and normal systolic function. PT consult to treat for weakness. 2-Dyspnea on exertion/peripheral edemalikely from CHF. 2-D echo 55-60%, RON inhibitor added to patient regiment and continue current diuretics. 3-Elevated troponinnonspecific. ACS ruled out per protocol with serial cardiac enzyme and no evidence of angina. Appreciate input from cardiology and recommended medical management 4-History of CLL: Appreciate input from Oncology and work up in progress including peripheral blood flow cytometry, serum protein electrophoresis, quantitative immunoglobulins. CT abdomen/pelvis and CT chest with no adenopathy in abdomen and pelvic 5-Hypertension: Norvasc has been discontinued. Continue lisinopril, Lopressor however with holding parameters 6-UTI: s/p Levaquin 750 every 48H as urine culture negative 7-Other chronic medical conditions: Continue current meds 8-Bilateral lower extremity pain: Doppler ruled out DVT 9-Mild acute renal failure: Resolved with gentle IV fluid hydration Avoid all nephrotoxic drugs, monitor BUN and creatinine. 10-Anemia of chronic disease as well as B-12 deficiency: Also with evidence of ANABEL; folate levels pending. 11-Iron deficiency anemia: Completed Venofer 200 mg daily 3 days 12-Thrombocytopenia : 2/2 lymphoproliferative disorder DVT prophylaxis: SCD DC TO [facility] Zelda Sexton MD Mar 15, 2016 10:45
--- NOTE | 2016-03-15 11:10 | PD.ONC.PN ---
Subjective Subjective Remarks Tmax 99.7 overnight. Patient was discharged on tuesday, but is pending a placement with SNF. She states she feels well and is without complaint. Daughter at bedside. Objective Data Date Time Temp Pulse Resp B/P Pulse Ox O2 Delivery O2 Flow Rate FiO2 03/15/16 08:00 98.4 59 20 143/65 97 03/15/16 05:46 98.8 58 20 132/64 97 03/15/16 00:24 99.4 61 20 126/60 99 03/14/16 20:39 99.7 64 18 60/ 97 03/14/16 20:36 73 03/14/16 20:00 Room Air 03/14/16 16:00 98.3 59 18 142/65 99 03/14/16 12:00 98.4 59 18 123/58 98 Result Diagram: 03/13/16 0740 03/13/16 0740 Administered Medications Medications (Trade) Dose Ordered Sig/Shwetha Route PRN Reason Start Time Stop Time Status Last Admin Dose Admin IV Flush (NS Flush) 2 ml BID FLUSH 03/08/16 21:00 03/13/16 13:59 Levofloxacin (Levaquin) 750 mg Q48H PO 03/09/16 21:00 03/13/16 20:34 Aspirin (Ecotrin Ec) 81 mg DAILY PO 03/09/16 09:00 03/15/16 09:28 Docusate Sodium (Colace) 100 mg DAILY PO 03/09/16 09:00 03/15/16 09:26 Dorzolamide/ Timolol (Cosopt 2-0.5% Opth Soln) 1 drop BID LEFT EYE 03/09/16 09:00 03/15/16 09:33 Gabapentin (Neurontin) 100 mg TID PO 03/09/16 09:00 03/15/16 09:37 Pravastatin Sodium (Pravachol) 40 mg BID PO 03/09/16 09:00 03/15/16 09:26 Metoprolol Succinate (Toprol Xl) 25 mg DAILY PO 03/09/16 09:00 03/15/16 09:26 Nitroglycerin (Nitro-Dur 0.1 Mg Patch.24hr) 0.1 patch DAILY T-DERMAL 03/09/16 09:00 03/15/16 09:27 Pantoprazole Sodium (Protonix) 40 mg DAILY PO 03/09/16 09:00 03/15/16 09:26 Tizanidine HCl (Zanaflex) 4 mg HS PO 03/09/16 21:00 03/14/16 20:34 Tobramycin Sulfate (Tobrex 0.3% Opth Oint) 1 applic TID LEFT EYE 03/09/16 09:00 03/15/16 09:34 Latanoprost (Xalatan 0.005% Opth Soln) 1 drop HS EACH EYE 03/08/16 22:30 03/14/16 20:36 Acetaminophen (Tylenol) 650 mg Q4H PRN PO TEMP>101F, PAIN 1-10, HEADACHE 03/10/16 17:30 03/10/16 19:15 Folic Acid (Folate) 1 mg DAILY PO 03/10/16 23:30 03/15/16 09:26 Lisinopril (Prinivil) 5 mg DAILY PO 03/11/16 09:00 03/15/16 09:26 Cyanocobalamin (Vitamin B12 Inj) 1,000 mcg DAILY IM 03/12/16 09:00 03/15/16 09:32 Objective Remarks GENERAL: Well-nourished, well-developed patient. SKIN: Warm and dry. HEAD: Normocephalic. EYES: No scleral icterus. No injection or drainage. NECK: Supple, trachea midline. No JVD or lymphadenopathy. LYMPHATIC: No adenopathy. CARDIOVASCULAR: Regular rate and rhythm without murmurs. RESPIRATORY: Breath sounds equal bilaterally. No accessory muscle use. GASTROINTESTINAL: Abdomen soft, non-tender, nondistended. EXTREMITIES: No cyanosis, or edema. MUSCULOSKELETAL: Adequate muscle tone. NEUROLOGICAL: No obvious focal deficit. Awake, alert, and oriented x3. PSYCHIATRIC: Appropriate mood and affect; insight and judgment normal. 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 1. lymphoproliferative disorder 2. Anemia due to Leukemia/B12 deficiency and iron deficiency 3. Thrombocytopenia 4. Lymphocytosis Plan 1. clear for discharge after bone marrow biopsy completed 2. follow up in clinic on 03/26/16. Attending Statement The exam, history, and the medical decision-making described in the above note were completed with the assistance of the mid-level provider. I reviewed and agree with the findings presented. I attest that I had a [id number] encounter with the patient on the same day, and personally performed and documented my assessment and findings in the medical record. Bone marrow biopsy prior to discharge. Flow cytometry on aspirate, FISH and Cytogenetics/ CT imaging shows splenomegaly 19.2 cm. Problem Qualifiers (1) Anemia: Liberty Godfrey Mar 15, 2016 11:10 Bartolo Hahn MD Mar 15, 2016 20:45
[2016-03-15 11:17] LABS: HEMATOCRIT 26.6 % (35.0-46.0); MEAN CELL VOLUME 102.7 FL (80.0-100.0); MEAN CORPUSCULAR HEMOGLOBIN 32.2 PG (27.0-34.0); MEAN CORPUSCULAR HGB CONC 31.3 % (32.0-36.0); PLATELET COUNT 61 TH/MM3 (150-450); RED BLOOD COUNT 2.59 MIL/MM3 (4.00-5.30); RED CELL DISTRIBUTION WIDTH 17.2 % (11.6-17.2)
[2016-03-15 11:22] LABS: HEMO FLAGS AUTO DIFF
[2016-03-15 12:33] LABS: NEUTROPHIL # MANUAL DIFF 0.8 TH/MM3 (1.8-7.7); POLYS (SEG NEUTROPHILS) 3 % (16-70); WBC DIFF SAMPLE 100
[2016-03-15 12:34] LABS: PLATELET ESTIMATE SMEAR LOW (NORMAL); PLATELET MORPHOLOGY NORMAL (NORMAL); SCAN/DIFF FINAL DIFF MANUAL
[2016-03-15 12:35] LABS: SMUDGE CELLS PRESENT PRESENT
[2016-03-15] MEDS ORDERED: GETGO ROLLING W1 MI1 (16:29)
[2016-03-15] MEDS ORDERED: COMMODE 3-IN-11 MIS (16:29)
[2016-03-15] MEDS: LATANOPROST 0.005% OPHT SOLN 2.5 ML BTL EACH EYE SCH (21:01)
[2016-03-15] MEDS: LEVOFLOXACIN 750 MG TAB PO SCH (21:01)
[2016-03-16] VITALS (10 sets, daily range): BP systolic 112–161; BP diastolic 53–71; PULSE 49–61; RESP 16–19; TEMP 97.1–98.8; O2SAT 91–98
[2016-03-16] MEDS: INSULIN ASPART SUPPLEMENTAL SCALE SQ SCH ×4 (06:15→20:11)
--- NOTE | 2016-03-16 07:48 | HHI.PR ---
Subjective Remarks No acute events overnight. Insurance did not approve snf. Patient will go home with home health. CM following for arrangements. Hem/onc wants bone marrow Bx today. Patient is NPO at this time. Can be DC thereafter. to follow up with hem/onc as well as OP. Patient says she doesn't have any pain at this time. Denies n/v/d/c. No fevers or chills. Objective Vitals Vital Signs Date Time Temp Pulse Resp B/P Pulse Ox O2 Delivery O2 Flow Rate FiO2 03/16/16 04:00 97.4 54 18 153/67 98 03/16/16 00:00 97.1 59 18 134/63 97 03/15/16 21:30 Room Air 03/15/16 20:00 97.5 63 17 150/69 98 03/15/16 19:56 64 03/15/16 16:00 97.9 61 20 154/65 95 03/15/16 12:00 98.0 58 20 125/81 99 03/15/16 08:00 58 03/15/16 08:00 98.4 59 20 143/65 97 03/15/16 08:00 Room Air I/O 03/15/16 03/15/16 03/15/16 03/16/16 03/16/16 03/16/16 07:00 15:00 23:00 07:00 15:00 23:00 Intake Total 240 ml 242 ml 100 ml Balance 240 ml 242 ml 100 ml Intake Oral 240 ml 240 ml 100 ml IV Total 0 ml 2 ml # Voids 1 3 0 0 # Bowel Movements 1 0 0 Result Diagram: 03/15/16 1036 03/13/16 0740 Imaging Last Impressions Chest CT 03/12/16 0000 Signed Impressions: Service Date/Time: Saturday, March 12, 2016 22:23 - CONCLUSION: 1. Severe coronary calcifications postoperative CABG. No pathologically enlarged lymph nodes identified within the chest. No effusions. Spleen is enlarged. See abdomen CT report. Damaso Chamberlain MD Abdomen/Pelvis CT 03/12/16 0000 Signed Impressions: Service Date/Time: Saturday, March 12, 2016 22:23 - CONCLUSION: 1. Splenomegaly to 19.2 cm. No adenopathy in the abdomen and pelvis. Distended bladder. Mild constipation. 2. Small right-sided inguinal hernia containing several loops of small bowel without evidence for incarceration or obstruction. Damaso Chamberlain MD Head CT 03/08/16 1711 Signed Impressions: Service Date/Time: Tuesday, March 08, 2016 17:33 - CONCLUSION: No acute intracranial abnormality. iGovanny Belcher MD Chest X-Ray 03/08/16 1708 Signed Impressions: Service Date/Time: Tuesday, March 08, 2016 17:12 - CONCLUSION: Trace bibasilar atelectasis and borderline cardiomegaly. Previous CABG. Giovanny Belcher MD Lower Extremity Ultrasound 03/08/16 0000 Signed Impressions: Service Date/Time: Tuesday, March 08, 2016 22:57 - CONCLUSION: Normal examination. Troy Ignacio Jr., MD Carotid Artery Ultrasound 03/08/16 0000 Signed Impressions: Service Date/Time: Tuesday, March 08, 2016 23:15 - CONCLUSION: 1. Calcified atherosclerotic plaque without hemodynamically significant stenosis involving either carotid artery. 2. Antegrade flow involving both vertebral arteries. Troy Ignacio Jr., MD Objective Remarks Gen.: No acute distress Head: Normocephalic. Atraumatic. EENT: Pupils equal round and reactive to light. Nose without drainage. Airway intact. Throat without injection. Cardiovascular: Regular rate and rhythm. No murmurs, rubs or gallops. Respiratory: Lungs clear to auscultation bilaterally. No wheezes or rhonchi. Abdomen: Soft, nontender, nondistended. No peritoneal signs. Musculoskeletal: No gross deformities. No edema. Skin: No obvious rashes or erythema. Neuro: Sensory and motor grossly intact. Cranial nerves II through XII grossly intact. 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 Head CT with no acute intracranial abnormality. Carotid ultrasound without hemodynamically significant stenosis involving either carotid artery. 2-D echo with a 55-60% and normal systolic function. PT consult to treat for weakness. 2-Dyspnea on exertion/peripheral edemalikely from CHF. 2-D echo 55-60%, RON inhibitor added to patient regiment and continue current diuretics. 3-Elevated troponinnonspecific. ACS ruled out per protocol with serial cardiac enzyme and no evidence of angina. Appreciate input from cardiology and recommended medical management 4-History of CLL: Appreciate input from Oncology and work up in progress including peripheral blood flow cytometry, serum protein electrophoresis, quantitative immunoglobulins. CT abdomen/pelvis and CT chest with no adenopathy in abdomen and pelvic Plan for Bone marrow biopsy 03/16/16. 5-Hypertension: Norvasc has been discontinued. Continue lisinopril, Lopressor however with holding parameters 6-UTI: s/p Levaquin 750 every 48H as urine culture negative 7-Other chronic medical conditions: Continue current meds 8-Bilateral lower extremity pain: Doppler ruled out DVT 9-Mild acute renal failure: Resolved with gentle IV fluid hydration Avoid all nephrotoxic drugs, monitor BUN and creatinine. 10-Anemia of chronic disease as well as B-12 deficiency: Also with evidence of ANABEL; folate levels pending. 11-Iron deficiency anemia: Completed Venofer 200 mg daily 3 days 12-Thrombocytopenia : 2/2 lymphoproliferative disorder DVT prophylaxis: SCD DC home with home health poss today after BM bx. To follow up as OP with PCP and consultants. eZlda Sexton MD Mar 16, 2016 07:48
[2016-03-16] MEDS: NITROGLYCERIN 0.1 MG/HR PATCH T-DERMAL SCH (08:15)
[2016-03-16] MEDS: ASPIRIN EC 81 MG TABEC PO SCH (08:16)
[2016-03-16] MEDS: DOCUSATE SODIUM 100 MG CAP PO SCH (08:16)
[2016-03-16] MEDS: PANTOPRAZOLE SOD 40 MG DELAYED RELEASE TAB PO SCH (08:17)
[2016-03-16] MEDS: LISINOPRIL 10 MG TAB PO SCH (08:17)
[2016-03-16] MEDS: SODIUM CHLORIDE 0.9% FLUSH 5 ML FLUSH FLUSH SCH ×2 (08:17→21:51)
[2016-03-16] MEDS: GABAPENTIN 100 MG CAP PO SCH ×3 (08:17→17:24)
[2016-03-16] MEDS: METOPROLOL SUCCINATE 25 MG EXTENDED RELEASE TAB PO SCH (08:17)
[2016-03-16] MEDS: CYANOCOBALAMIN 1000 MCG/ML VIAL IM SCH (08:17)
[2016-03-16] MEDS: PRAVASTATIN SOD 40 MG TAB PO SCH ×2 (08:17→21:51)
[2016-03-16] MEDS: TOBRAMYCIN SULFATE 0.3% OPTH OINT 3.5 GM TUBE LEFT EYE SCH ×3 (08:18→17:24)
[2016-03-16] MEDS: FOLIC ACID 1 MG TAB PO SCH (08:18)
[2016-03-16] MEDS: DORZOLAMIDE/TIMOLOL OPTH SOLN 10 ML BTL LEFT EYE SCH ×2 (08:18→21:51)
--- NOTE | 2016-03-16 10:23 | PD.ONC.PN ---
Subjective Subjective Remarks Afebrile overnight. Patient resting comfortably. She is waiting to go downstairs for bone marrow biopsy. She has no complaints. Objective Data Date Time Temp Pulse Resp B/P Pulse Ox O2 Delivery O2 Flow Rate FiO2 03/16/16 09:38 Room Air 03/16/16 08:00 98.6 59 18 161/71 96 03/16/16 04:00 97.4 54 18 153/67 98 03/16/16 00:00 97.1 59 18 134/63 97 03/15/16 21:30 Room Air 03/15/16 20:00 97.5 63 17 150/69 98 03/15/16 19:56 64 03/15/16 16:00 97.9 61 20 154/65 95 03/15/16 12:00 98.0 58 20 125/81 99 03/16/16 03/16/16 03/16/16 07:00 15:00 23:00 Intake Total 100 ml Balance 100 ml Result Diagram: 03/15/16 1036 03/13/16 0740 Laboratory Results Laboratory Tests Test 03/15/16 10:36 White Blood Count 27.0 TH/MM3 Red Blood Count 2.59 MIL/MM3 Hemoglobin 8.3 GM/DL Hematocrit 26.6 % Mean Corpuscular Volume 102.7 FL Mean Corpuscular Hemoglobin 32.2 PG Mean Corpuscular Hemoglobin 31.3 % Concent Red Cell Distribution Width 17.2 % Platelet Count 61 TH/MM3 Mean Platelet Volume 10.1 FL Neutrophils (%) (Auto) % Lymphocytes (%) (Auto) % Monocytes (%) (Auto) % Eosinophils (%) (Auto) % Basophils (%) (Auto) % Neutrophils # (Auto) TH/MM3 Lymphocytes # (Auto) TH/MM3 Monocytes # (Auto) TH/MM3 Eosinophils # (Auto) TH/MM3 Basophils # (Auto) TH/MM3 CBC Comment AUTO DIFF Differential Total Cells 100 Counted Neutrophils % (Manual) 3 % Lymphocytes % 97 % Neutrophils # (Manual) 0.8 TH/MM3 Differential Comment FINAL DIFF MANUAL Smudge Cells PRESENT Platelet Estimate LOW Platelet Morphology Comment NORMAL Administered Medications Medications (Trade) Dose Ordered Sig/Shwetha Route PRN Reason Start Time Stop Time Status Last Admin Dose Admin IV Flush (NS Flush) 2 ml BID FLUSH 03/08/16 21:00 03/15/16 20:59 Levofloxacin (Levaquin) 750 mg Q48H PO 03/09/16 21:00 03/15/16 21:01 Aspirin (Ecotrin Ec) 81 mg DAILY PO 03/09/16 09:00 03/16/16 08:16 Docusate Sodium (Colace) 100 mg DAILY PO 03/09/16 09:00 03/16/16 08:16 Dorzolamide/ Timolol (Cosopt 2-0.5% Opth Soln) 1 drop BID LEFT EYE 03/09/16 09:00 03/16/16 08:18 Gabapentin (Neurontin) 100 mg TID PO 03/09/16 09:00 03/16/16 08:17 Pravastatin Sodium (Pravachol) 40 mg BID PO 03/09/16 09:00 03/16/16 08:17 Metoprolol Succinate (Toprol Xl) 25 mg DAILY PO 03/09/16 09:00 03/16/16 08:17 Nitroglycerin (Nitro-Dur 0.1 Mg Patch.24hr) 0.1 patch DAILY T-DERMAL 03/09/16 09:00 03/16/16 08:15 Pantoprazole Sodium (Protonix) 40 mg DAILY PO 03/09/16 09:00 03/16/16 08:17 Tizanidine HCl (Zanaflex) 4 mg HS PO 03/09/16 21:00 03/15/16 21:01 Tobramycin Sulfate (Tobrex 0.3% Opth Oint) 1 applic TID LEFT EYE 03/09/16 09:00 03/16/16 08:18 Latanoprost (Xalatan 0.005% Opth Soln) 1 drop HS EACH EYE 03/08/16 22:30 03/15/16 21:01 Acetaminophen (Tylenol) 650 mg Q4H PRN PO TEMP>101F, PAIN 1-10, HEADACHE 03/10/16 17:30 03/10/16 19:15 Folic Acid (Folate) 1 mg DAILY PO 03/10/16 23:30 03/16/16 08:18 Lisinopril (Prinivil) 5 mg DAILY PO 03/11/16 09:00 03/16/16 08:17 Cyanocobalamin (Vitamin B12 Inj) 1,000 mcg DAILY IM 03/12/16 09:00 03/16/16 08:17 Objective Remarks GENERAL: Elderly female, sitting up in bed in nad. SKIN: Warm and dry. HEAD: Normocephalic. EYES: No injection or drainage. NECK: Supple, trachea midline. CARDIOVASCULAR: +S1/S2 RESPIRATORY: Breath sounds equal bilaterally. No accessory muscle use. GASTROINTESTINAL: Abdomen soft, non-tender, nondistended. EXTREMITIES: No cyanosis. NEUROLOGICAL: awake and alert, normal speech. moving extremities. Assessment/Plan Problem List: (1) Lymphoproliferative disorder Status: Chronic Plan: --03/16/16: plan to obtain bone marrow biopsy prior to discharge. 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 1. lymphoproliferative disorder 2. Anemia due to Leukemia/B12 deficiency and iron deficiency 3. Thrombocytopenia 4. Lymphocytosis Plan 1. clear for discharge after bone marrow biopsy today 2. follow up in clinic on 03/26/16. Attending Statement The exam, history, and the medical decision-making described in the above note were completed with the assistance of the mid-level provider. I reviewed and agree with the findings presented. I attest that I had a [id number] encounter with the patient on the same day, and personally performed and documented my assessment and findings in the medical record. Problem Qualifiers (1) Anemia: Liberty Godfrey Mar 16, 2016 10:23 Bartolo Hahn MD Mar 16, 2016 21:34
[2016-03-16] MEDS ORDERED: LIDOCAINE 1%/EPINEPHrine 1:100,000 SOLN 20 ML VIAL ONE (10:52)
[2016-03-16] MEDS ORDERED: MIDAZOLAM HCL 2 MG/2 ML VIAL ONE (11:24)
--- NOTE | 2016-03-16 12:17 | RADRPT ---
EXAM DATE/TIME: 03/16/2016 11:29 [facility] COMPARISON: No previous studies available for comparison. INDICATIONS : Thrombocytopenia. SEDATION TIME: 30 minutes BIOPSY SITE: Right MEDICATION(S): 1.) 1 mg midazolam (Versed) IV 2.) 100 mcg fentanyl (Sublimaze) IV DEVICE(S): 1.) 11 gauge Bone marrow biopsy needle MEDICAL HISTORY : Cardiovascular disease. Hypertension. SURGICAL HISTORY : Hysterectomy. Appendectomy. Cholecystectomy. ENCOUNTER: Initial ACUITY: 1 day PAIN SCORE: 0/10 LOCATION: Right pelvis A total of one core specimen(s) were obtained and sent to the laboratory for pathologic evaluation. PROCEDURE: 1. CT guided bone marrow biopsy. 2. Conscious sedation with continuous EKG and oximetry monitoring. 3. EKG and oximetry remained stable throughout the procedure. Prior to the procedure informed consent was obtained. Any appropriate prior imaging studies were rev iewed. The site was prepped in a sterile fashion. Full sterile technique was used, including cap, mask, boris rile gloves and gown and a large sterile sheet. Hand hygiene and 2% chlorhexidine and/or betadine/al cohol prep was utilized per protocol for cutaneous antisepsis. The skin and subcutaneous tissues wer e infiltrated with local anesthetic solution. With CT guidance the right posterior iliac bone was localized. Biopsy was performed using the prescri bed needle as above. Following biopsy marrow aspiration was performed with repeat puncture. Adequate hemostasis was obtained with compression at the puncture site. Conscious sedation was performed with the prescribed dosages and duration as above. The patient baljit ated the procedure well and there were no complications. EKG and oximetry remained stable throughout the procedure. The patient was sent to Radiology Outpatient Unit in stable condition. CONCLUSION: 1. Uncomplicated CT guided bone marrow aspirate. 2. Uncomplicated CT guided bone marrow biopsy. Giovanny Carrion MD on March 16, 2016 at 12:16 Board Certified Radiologist. This report was verified electronically.
[2016-03-16] MEDS ORDERED: oxyCODONE/ACETAMINOPHEN 5 MG/325 MG TAB PO PRN (12:30)
[2016-03-16 21:30] LABS: BONE MARROW PROCESSING COMPLETE; IRON STAIN DONE; JENNER GIEMSA STAIN DONE
[2016-03-16] MEDS: LATANOPROST 0.005% OPHT SOLN 2.5 ML BTL EACH EYE SCH (21:50)
[2016-03-17] VITALS: BP 150/65; PULSE 55; RESP 16; TEMP 98; O2SAT 96
[2016-03-17 04:00] VITALS: BP 102/64; PULSE 53; RESP 18; TEMP 97.2; O2SAT 95
[2016-03-17] MEDS: INSULIN ASPART SUPPLEMENTAL SCALE SQ SCH ×2 (05:02→11:00)
[2016-03-17 08:00] VITALS: BP 152/70; PULSE 58; RESP 20; TEMP 97.9; O2SAT 97
[2016-03-17] MEDS: PANTOPRAZOLE SOD 40 MG DELAYED RELEASE TAB PO SCH (08:34)
[2016-03-17] MEDS: DOCUSATE SODIUM 100 MG CAP PO SCH (08:34)
[2016-03-17] MEDS: ASPIRIN EC 81 MG TABEC PO SCH (08:35)
[2016-03-17] MEDS: METOPROLOL SUCCINATE 25 MG EXTENDED RELEASE TAB PO SCH (08:35)
[2016-03-17] MEDS: FOLIC ACID 1 MG TAB PO SCH (08:35)
[2016-03-17] MEDS: PRAVASTATIN SOD 40 MG TAB PO SCH (08:35)
[2016-03-17] MEDS: SODIUM CHLORIDE 0.9% FLUSH 5 ML FLUSH FLUSH SCH (08:35)
[2016-03-17] MEDS: GABAPENTIN 100 MG CAP PO SCH ×2 (08:35→12:07)
[2016-03-17] MEDS: CYANOCOBALAMIN 1000 MCG/ML VIAL IM SCH (08:35)
[2016-03-17] MEDS: NITROGLYCERIN 0.1 MG/HR PATCH T-DERMAL SCH (08:35)
[2016-03-17] MEDS: LISINOPRIL 10 MG TAB PO SCH (08:35)
[2016-03-17] MEDS: DORZOLAMIDE/TIMOLOL OPTH SOLN 10 ML BTL LEFT EYE SCH (08:36)
[2016-03-17] MEDS: TOBRAMYCIN SULFATE 0.3% OPTH OINT 3.5 GM TUBE LEFT EYE SCH ×2 (08:36→12:07)
--- NOTE | 2016-03-17 10:29 | HHI.PR ---
Subjective Remarks In the chair, had bM Bx last night. Feels nauseated on/off has dry heaves. Will give zofran. No pain. Denies cp, sob , n/v/d/c. Objective Vitals Vital Signs Date Time Temp Pulse Resp B/P Pulse Ox O2 Delivery O2 Flow Rate FiO2 03/17/16 04:00 97.2 53 18 102/64 95 03/17/16 00:00 98.0 55 16 150/65 96 03/16/16 21:10 Room Air 03/16/16 20:23 61 03/16/16 20:00 98.4 61 18 144/66 97 03/16/16 14:06 52 18 132/63 96 03/16/16 13:36 49 19 139/60 96 03/16/16 13:06 52 17 121/53 95 03/16/16 12:36 56 16 120/55 92 03/16/16 12:21 98.8 55 17 112/57 91 I/O 03/16/16 03/16/16 03/16/16 03/17/16 03/17/16 03/17/16 07:00 15:00 23:00 07:00 15:00 23:00 Intake Total 100 ml 120 ml 122 ml 0 ml Output Total 0 ml Balance 100 ml 120 ml 122 ml 0 ml Intake Oral 100 ml 120 ml 120 ml 0 ml IV Total 2 ml Output Urine Total 0 ml # Voids 0 1 0 # Bowel Movements 0 0 0 0 Result Diagram: 03/15/16 1036 03/13/16 0740 Imaging Last Impressions Bone Biopsy CT 03/16/16 0000 Signed Impressions: Service Date/Time: Wednesday, March 16, 2016 11:29 - CONCLUSION: 1. Uncomplicated CT guided bone marrow aspirate. 2. Uncomplicated CT guided bone marrow biopsy. Giovanny Carrion MD Chest CT 03/12/16 0000 Signed Impressions: Service Date/Time: Saturday, March 12, 2016 22:23 - CONCLUSION: 1. Severe coronary calcifications postoperative CABG. No pathologically enlarged lymph nodes identified within the chest. No effusions. Spleen is enlarged. See abdomen CT report. Damaso Chamberlain MD Abdomen/Pelvis CT 03/12/16 0000 Signed Impressions: Service Date/Time: Saturday, March 12, 2016 22:23 - CONCLUSION: 1. Splenomegaly to 19.2 cm. No adenopathy in the abdomen and pelvis. Distended bladder. Mild constipation. 2. Small right-sided inguinal hernia containing several loops of small bowel without evidence for incarceration or obstruction. Damaso Chamberlain MD Head CT 03/08/16 1711 Signed Impressions: Service Date/Time: Tuesday, March 08, 2016 17:33 - CONCLUSION: No acute intracranial abnormality. Giovanny Belcher MD Chest X-Ray 03/08/16 1708 Signed Impressions: Service Date/Time: Tuesday, March 08, 2016 17:12 - CONCLUSION: Trace bibasilar atelectasis and borderline cardiomegaly. Previous CABG. Giovanny Belcher MD Lower Extremity Ultrasound 03/08/16 0000 Signed Impressions: Service Date/Time: Tuesday, March 08, 2016 22:57 - CONCLUSION: Normal examination. Troy Ignacio Jr., MD Carotid Artery Ultrasound 03/08/16 0000 Signed Impressions: Service Date/Time: Tuesday, March 08, 2016 23:15 - CONCLUSION: 1. Calcified atherosclerotic plaque without hemodynamically significant stenosis involving either carotid artery. 2. Antegrade flow involving both vertebral arteries. Troy Ignacio Jr., MD Objective Remarks Gen.: No acute distress Head: Normocephalic. Atraumatic. EENT: Pupils equal round and reactive to light. Nose without drainage. Airway intact. Throat without injection. Cardiovascular: Regular rate and rhythm. No murmurs, rubs or gallops. Respiratory: Lungs clear to auscultation bilaterally. No wheezes or rhonchi. Abdomen: Soft, nontender, nondistended. No peritoneal signs. Musculoskeletal: No gross deformities. No edema. Skin: No obvious rashes or erythema. Neuro: Sensory and motor grossly intact. Cranial nerves II through XII grossly intact. 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 Head CT with no acute intracranial abnormality. Carotid ultrasound without hemodynamically significant stenosis involving either carotid artery. 2-D echo with a 55-60% and normal systolic function. PT consult to treat for weakness. 2-Dyspnea on exertion/peripheral edemalikely from CHF. 2-D echo 55-60%, RON inhibitor added to patient regiment and continue current diuretics. 3-Elevated troponinnonspecific. ACS ruled out per protocol with serial cardiac enzyme and no evidence of angina. Appreciate input from cardiology and recommended medical management 4-History of CLL: Appreciate input from Oncology and work up in progress including peripheral blood flow cytometry, serum protein electrophoresis, quantitative immunoglobulins. CT abdomen/pelvis and CT chest with no adenopathy in abdomen and pelvic Plan for Bone marrow biopsy 03/16/16. 5-Hypertension: Norvasc has been discontinued. Continue lisinopril, Lopressor however with holding parameters 6-UTI: s/p Levaquin 750 every 48H as urine culture negative 7-Other chronic medical conditions: Continue current meds 8-Bilateral lower extremity pain: Doppler ruled out DVT 9-Mild acute renal failure: Resolved with gentle IV fluid hydration Avoid all nephrotoxic drugs, monitor BUN and creatinine. 10-Anemia of chronic disease as well as B-12 deficiency: Also with evidence of ANABEL; folate levels pending. 11-Iron deficiency anemia: Completed Venofer 200 mg daily 3 days 12-Thrombocytopenia : 2/2 lymphoproliferative disorder DVT prophylaxis: SCD DC home with home health when arrangement done per CM. To follow up as OP with PCP and consultants. Zelda Sexton MD Mar 17, 2016 10:29
[2016-03-17 12:00] VITALS: BP 107/57; PULSE 58; RESP 20; TEMP 97.4; O2SAT 99
== END 2016-03-17 13:51 | disposition home health service (06) | DRG 292 ==
LOC: NEPC 15:35 → NEDA 18:58 → N04B 21:10
PROVIDERS: ADMIT Hospitalist; ATTEND Hospitalist
PROC: 07DR3ZX Extraction of Iliac Bone Marrow, Percutaneous Approach, Diagnostic (ICD-10-PCS; principal; 2016-03-16)
DX: I11.0 Hypertensive heart disease with heart failure (principal); N17.9 Acute kidney failure, unspecified; D69.59 Other secondary thrombocytopenia; D51.3 Other dietary vitamin B12 deficiency anemia; D47.9 Neoplasm of uncertain behavior of lymphoid, hematopoietic and related tissue, unspecified; R55 Syncope and collapse; D50.9 Iron deficiency anemia, unspecified; E11.9 Type 2 diabetes mellitus without complications; I50.31 Acute diastolic (congestive) heart failure; R53.1 Weakness; I25.10 Atherosclerotic heart disease of native coronary artery without angina pectoris; I73.9 Peripheral vascular disease, unspecified; E78.5 Hyperlipidemia, unspecified; E21.0 Primary hyperparathyroidism; M79.605 Pain in left leg; M79.604 Pain in right leg; Z79.84 Long term (current) use of oral hypoglycemic drugs; Z95.1 Presence of aortocoronary bypass graft; Z88.0 Allergy status to penicillin
CPT/HCPCS: 38221; 70450; 71010; 71260; 74177; 76937; 77012; 80048; 80053; 81001; 82272; 82550; 82607; 82747; 82784; 82948; 83010; 83540; 83550; 83605; 83735; 83880; 84165; 84484; 85007; 85027; 85060; 85097; 85610; 87040; 87086; 88184; 88185; 88230; 88237; 88264; 88280; 88305; 88311; 88313; 93005; 93306; 93880; 93970; 99152; C1830; G0364; J1756; J1815; J1940; J2250; J2405; J3010; J3420; J7040; Q9963; Q9967

== ENCOUNTER 2016-04-01 06:18 | Day surgery (SDC) | payer OTHER ==
[~2016-04-01] VITALS: Ht 162.6 cm; Wt 57.0 kg
[~2016-04-01 06:18] MED LIST changes: -AMLO10 PO; +AMLO10TA2 PO; +ASPI1TAB91 PO; -AZOP1SUS BOTH EYES; +COMMODE 3-IN-11 MIS; -DILT-XR PO; +DORZ2SOL15 LEFT EYE; +FOSA70TA PO; +FURO1TAB62 PO; +GABA100C4 PO; +GETGO ROLLING W1 MI1; -GLUCTAB PO; -LORT5TAB PO; -LOSA25TA31 PO; +LOVA40TA PO; +METF500T PO; +NITR0.1D T-DERMAL; +NITR0.4S SL; +PANT40TA3 PO; -PROT40TA PO; -ST JTAB PO; +STOO100C PO; +TIZA4TAB PO; +TOBR.3%O LEFT EYE; -TOBRA.3%O LEFT EYE; +TOPR25TA PO; +TRAV0.00 EACH EYE; -ZOVI800T13 PO
[2016-04-01 06:53] VITALS: BP 145/75; PULSE 63; RESP 20; TEMP 97.9; O2SAT 99
[2016-04-01] MEDS ORDERED: CHLORHEXIDINE GLUCONATE 2 % 1 PACK (2 CLOTHS) TOPICAL SCH (07:00)
[2016-04-01] MEDS ORDERED: VANCOMYCIN 1000 MG/NS 250 ML - implanted port/tunneled catheter IV SCH ×2 (07:00)
[2016-04-01] MEDS ORDERED: POVIDONE IODINE 5% (ANTISEPSIS KIT) 4 APPLICATIONS EACH NARE SCH (07:00)
[2016-04-01] MEDS ORDERED: SODIUM CHLORIDE 0.9% 1000 ML IV SCH (07:00)
[2016-04-01 07:25] LABS: HEMATOCRIT 30.4 % (35.0-46.0); MEAN CELL VOLUME 101.4 FL (80.0-100.0); MEAN CORPUSCULAR HEMOGLOBIN 32.9 PG (27.0-34.0); MEAN CORPUSCULAR HGB CONC 32.5 % (32.0-36.0); PLATELET COUNT 63 TH/MM3 (150-450); RED CELL DISTRIBUTION WIDTH 15.8 % (11.6-17.2); WHITE BLOOD COUNT 40.4 TH/MM3 (4.0-11.0)
[2016-04-01 07:29] LABS: HEMO FLAGS AUTO DIFF
[2016-04-01 08:04] LABS: EOSINOPHILS 1 % (0-4); NEUTROPHIL # MANUAL DIFF 0.8 TH/MM3 (1.8-7.7); POLYS (SEG NEUTROPHILS) 2 % (16-70); WBC DIFF SAMPLE 100
[2016-04-01 08:07] LABS: PLATELET ESTIMATE SMEAR LOW (NORMAL); PLATELET MORPHOLOGY NORMAL (NORMAL); SCAN/DIFF FINAL DIFF MANUAL; SMUDGE CELLS PRESENT PRESENT
[2016-04-01 08:20] LABS: APTT (PATIENT) 24.5 SEC (24.3-30.1); PROTHROMBIN TIME - PATIENT 11.6 SEC (9.8-11.6)
[2016-04-01] MEDS ORDERED: MIDAZOLAM HCL 5 MG/5 ML VIAL ONE (09:22)
[2016-04-01] MEDS ORDERED: fentaNYL CITRATE 250 MCG/5 ML AMP ONE (09:23)
[2016-04-01] MEDS ORDERED: LIDOCAINE 1%/EPINEPHrine 1:100,000 SOLN 20 ML VIAL ONE (09:52)
[2016-04-01] MEDS ORDERED: THROMBIN (TOPICAL) 5,000 UNIT VIAL ONE (10:14)
[2016-04-01] MEDS ORDERED: GELATIN 12 MM/7 MM FOAM SQ ONE (10:15)
[2016-04-01] MEDS ORDERED: SODIUM CHLORIDE 0.9% FLUSH 5 ML FLUSH IVF PRN (10:30)
--- NOTE | 2016-04-01 10:33 | PD.RAD ---
Post Procedure Progress Note Pre Procedure Diagnosis: (1) CLL (chronic lymphocytic leukemia) Post Procedure Diagnosis: (1) CLL (chronic lymphocytic leukemia) Procedure Date: Apr 01, 2016 Supervising Radiologist: Rishi Avalos Anesthesia: Local, Conscious Sedation Plan of Activity Patient to Unit: [facility] Patient Condition: Fair Additional Comments: Port placed via the right. Subclavian without difficulty See PACS Report for procedural detail/treatment Rishi Avalos MD Apr 01, 2016 10:33
[2016-04-01 10:40] VITALS: BP 152/70; PULSE 55; RESP 16; TEMP 98.3; O2SAT 93
[2016-04-01 10:55] VITALS: BP 150/69; PULSE 57; RESP 16; O2SAT 98
[2016-04-01 11:25] VITALS: BP 147/67; PULSE 57; RESP 16; O2SAT 97
[2016-04-01 11:55] VITALS: BP 154/70; PULSE 57; RESP 16; O2SAT 99
[2016-04-01 12:50] VITALS: BP 141/67; PULSE 58; RESP 16; O2SAT 100
--- NOTE | 2016-04-01 13:26 | RADRPT ---
EXAM DATE/TIME: 04/01/2016 09:35 [facility] COMPARISON: No previous studies available for comparison. The INDICATIONS : Patient is in need of placement of an Infusaport for chemotherapy treatment. MEDICAL HISTORY : History of CLL, lymphoproliferative disorder, CAD, renal stones, DM, HTN, urinary retention. SURGICAL HISTORY : History of cardiac cath, CABG, cholecystectomy, appendectomy, hysterectomy. ENCOUNTER: Initial ACUITY: >1 year PAIN SCORE: 4/10 LOCATION: lower back FLUORO TIME: 2.3 minutes SEDATION TIME: 30 minutes ACCESS: Right subclavian vein SEDATION: 1.) 1 mg midazolam (Versed) IV 2.) 75 mcg fentanyl (Sublimaze) IV Prophylactic antibiotics were administered with appropriate pre-procedure timing. Vancomycin within 2 hours of procedure, Ancef (or alternative) within 1 hour of procedure. DEVICE: 1. 8 Greek Bard Power Port PROCEDURE : 1. Continuous pulse oximetry and EKG monitoring. 2. Intravenous conscious sedation. 3. Ultrasound guidance for venous access. 4. Fluoroscopic guided implantable central venous port placement. The patient was placed supine. The neck was prepped in sterile fashion. Full sterile technique was u sed, including cap, mask, sterile gloves and gown, and a large sterile sheet. Hand hygiene and 2% ch lorhexidine Betadine was utilized per protocol for cutaneous antisepsis with appropriate dry time for site. The skin and subcutaneous tissues were infiltrated with local anesthetic solution. Under direct ultrasound guidance, central venous access was accomplished in the targeted vessel. The ultrasound images depicting access guidance were stored and saved to PACS for permanent record. A s ubcutaneous pocket was created using blunt dissection. The port was introduced to the pocket. The c atheter tubing was fed through a subcutaneous tunnel to the venotomy site. The catheter tubing was c ut to a suitable length and then was introduced through a valved Peel-Away sheath and positioned with catheter tubing tip at the cavo-atrial junction level. The pocket incision was closed with subcutic ular Vicryl suture. Steri-Strips were applied. The port was flushed and locked with heparin solutio n per protocol. Sterile dressing was applied to the site. The patient tolerated the procedure well. Conscious sedation was performed with the prescribed dosages and duration as above. The patient baljit ated the procedure well and there were no complications. EKG and oximetry remained stable throughout the procedure. The patient was sent to post anesthesia recovery in stable condition. CONCLUSION: Uncomplicated ultrasound and fluoroscopic guided implanted central venous port catheter placement as described in detail above. An 8 Greek Power port was placed. Rishi Avalos MD on April 01, 2016 at 13:21 Board Certified Radiologist. This report was verified electronically.
== END 2016-04-01 13:27 | disposition home or self-care (01) ==
LOC: HROP 06:18 → HRIP 06:21 → HROP 13:27
PROVIDERS: ATTEND Internal Medicine
DX: Z45.2 Encounter for adjustment and management of vascular access device (principal); C91.10 Chronic lymphocytic leukemia of B-cell type not having achieved remission
CPT/HCPCS: 36561; 76937; 77001; 85007; 85027; 85610; 85730; 99152; 99153; C1788; J1642; J2250; J3010; J3370; J7030; J7050

== ENCOUNTER 2016-06-30 01:14 | Inpatient (IN) | payer OTHER, MEDICARE ==
[2016-06-30] VITALS (8 sets, daily range): BP systolic 106–160; BP diastolic 43–72; PULSE 57–78; RESP 16–21; TEMP 97.8–100.7; O2SAT 89–99
[~2016-06-30] VITALS: Ht 162.6 cm; Wt 57.0 kg
[2016-06-30] MEDS ORDERED: SODIUM CHLOR 0.9% 250 ML INJ 250 ML IV ONE (01:45)
[2016-06-30] MEDS ORDERED: ONDANSETRON HCL 4 MG/2 ML VIAL IV PUSH ONE (01:45)
[2016-06-30 01:56] LABS: HEMATOCRIT 25.9 % (35.0-46.0); MEAN CELL VOLUME 101.3 FL (80.0-100.0); MEAN CORPUSCULAR HEMOGLOBIN 34.2 PG (27.0-34.0); MEAN CORPUSCULAR HGB CONC 33.7 % (32.0-36.0); PLATELET COUNT 59 TH/MM3 (150-450); RED BLOOD COUNT 2.55 MIL/MM3 (4.00-5.30); RED CELL DISTRIBUTION WIDTH 15.3 % (11.6-17.2)
[2016-06-30 01:57] LABS: HEMO FLAGS AUTO DIFF
--- NOTE | 2016-06-30 02:01 | PD ---
HPI Chief Complaint: General Weakness Time Seen by Provider: 01:22 Travel History International Travel<30 days: No Contact w/Intl Traveler<30days: No Traveled to known affect area: No History of Present Illness HPI The patient is an 80 year old female who presents to the [facility] emergency department with a history of beginning to not feel well since early this morning. She reports that she's had nausea without vomiting or diarrhea. She reports that she's had generalized weakness with the sensation that her limbs are getting swollen, and a sensation that she is hot or cold throughout the day. She denies having any fevers. She reports that this evening she began to have a tightening sensation in the center of her chest associated with some indigestion. She reports that she does have a history of coronary artery disease and in 1997 had a triple bypass done. She is followed by Dr. Hitesh Damian for cardiac care. She cannot recall when her last stress test was done, however she suspects it was probably 5 years ago. She is currently under the care of an oncologist, Dr. Cerrato related to lymphoma. She was recently started on chemotherapy and has completed approximately 3-4 administration of chemotherapy. Her last administration was done on Tuesday. The patient reports that she has dyspnea on exertion. The patient denies having any one-sided weakness, numbness or tingling to her extremities, facial droop, difficulty with word finding ability, or vision changes. The patient denies any cough, congestion, neck pain, abdominal pain, or urinary symptoms. [facility] Past Medical History Narrative Medical The patient's past medical history is significant for Alzheimer's dementia, lymphoma, anxiety disorder, arthritis, history of cataracts, history of coronary artery disease, history of type 2 diabetes mellitus, acid reflux, glaucoma, history of hemorrhoids, hypertension, history of an irregular heartbeat, history of chronic renal insufficiency, history of kidney stones, osteoarthritis, osteoporosis, and uterine fibroids. Arthritis: Yes Anxiety: Yes Depression: No Cancer: Yes (lymphoma ) Cardiovascular Problems: Yes High Cholesterol: Yes Congestive Heart Failure: Yes Diabetes: Yes Patient Takes Glucophage: No Diminished Hearing: No Endocrine: Yes (PARATHYROID DISEASE) Gastrointestinal Disorders: Yes (GERD) GERD: Yes Genitourinary: Yes Hypertension: Yes Immune Disorder: No Kidney Stones: Yes Musculoskeletal: Yes Neurologic: Yes (SLOW BLEED TO LEFT HEAD) Psychiatric: Yes Reproductive: No Respiratory: Yes Shingles: Yes Past Surgical History Narrative Surgical The patient's past surgical history is significant for an appendectomy, cholecystectomy, coronary artery bypass grafting, hysterectomy, history of colonoscopy, history of an [id number] placement. Appendectomy: Yes Cardiac Surgery: Yes (CABG 1997) Cholecystectomy: Yes Coronary Artery Bypass Graft: Yes Genitourinary Surgery: Yes (KIDNEY STONE REMOVED) Gynecologic Surgery: Yes (HYSTERECTOMY 1973) Hysterectomy: Yes Other Surgery: Yes Social History Alcohol Use: No Tobacco Use: No Substance Use: No Allergies-Medications (Allergen,Severity, Reaction): Coded Allergies: Penicillin (Verified Allergy, Severe, Rash, SOB, 06/30/16) Reported Meds & Prescriptions Reported Meds & Active Scripts Active Walker Rolling/GetGo (Device) 1 Mis Mis 1 Ea .ROUTE DIRECTED Commode 3-in-1 (Device) 1 Mis Mis 1 Ea .ROUTE DIRECTED Reported Meloxicam 15 Mg Tab 15 Mg PO DAILY Namenda (Memantine) 5 Mg Tab 5 Mg PO DAILY Aspirin Adult Low Strength (Aspirin) 81 Mg Tabdr 81 Mg PO DAILY Stool Softener (Docusate Sodium) 100 Mg Cap 1 Cap PO DAILY Tobrex Opth Oint (Tobramycin Sulfate) 0.3 % Oint 1 Applic LEFT EYE TID Dorzolamide-Timolol Opth Drops 22.3-6.8 Mg/Ml Soln 1 Drop LEFT EYE BID Travatan Z Opth Drops (Travoprost) 0.004 % Soln 1 Drop EACH EYE HS Gabapentin 100 Mg Cap 100 Mg PO TID Nitrostat SL (Nitroglycerin) 0.4 Mg Subl 0.4 Mg SL DIRECTED PRN 1 tablet under the tongue as needed for chest pain. Repeat every 5 minutes for a total of 3 DOSES or call 911 if NO relief. Nitro-Dur Patch 24 HR (Nitroglycerin) 0.1 Mg/Hr Patch 0.1 Mg T-DERMAL DAILY Toprol XL (Metoprolol Succinate) 25 Mg Tab 25 Mg PO DAILY Tizanidine (Tizanidine HCl) 4 Mg Tab 4 Mg PO HS Pantoprazole (Pantoprazole Sodium) 40 Mg Tab 40 Mg PO DAILY Metformin (Metformin HCl) 500 Mg Tab 500 Mg PO BID With meals Lovastatin 40 Mg Tab 40 Mg PO BID Lasix (Furosemide) 20 Mg Tab 20 Mg PO DAILY Amlodipine (Amlodipine Besylate) 10 Mg Tab 10 Mg PO DAILY Fosamax (Alendronate Sodium) 70 Mg Tab 70 Mg PO WEEKLY Review of Systems Except as stated in HPI: all other systems reviewed are Neg General / Constitutional: No: Fever Eyes: No: Visual changes HENT: No: Headaches, Congestion, Neck Stiffness, Neck Pain Cardiovascular: Positive: Chest Pain or Discomfort Respiratory: No: Cough, Shortness of Breath Gastrointestinal: Positive: Nausea, Indigestion, Loss of Appetite, No: Vomiting, Diarrhea, Abdominal Pain, Changes in Bowel Habits Genitourinary: No: Urgency, Frequency, Dysuria, Flank Pain Musculoskeletal: No: Pain Skin: No Rash Neurologic: Positive: Weakness (generalized weakness), Slurred Speech, No: Focal Abnormalities, Coordination Problem, Change in Mentation, Sensory Disturbance Psychiatric: No: Depression Endocrine: No: Polydipsia Hematologic/Lymphatic: No: Easy Bruising Physical Exam Narrative General: The patient is a well-developed well-nourished female in no acute distress. Head and Neck exam: Head is normocephalic atraumatic. Eyes: EOMI, pupils are equal round and reactive to light. Nose: Midline septum with pink mucous membranes Mouth: Dentition unremarkable. Moist mucus membranes. Posterior oropharynx is not erythematous. No tonsillar hypertrophy. Uvula midline. Airway patent. Neck: No palpable lymphadenopathy. No nuchal rigidity. No thyromegaly. Cardiovascular: Regular rate and rhythm without murmurs, gallops, or rubs. Lungs: Clear to auscultation bilaterally. No wheezes, rhonchi, or rales. Abdomen: Soft, without tenderness to palpation in all 4 quadrants of the abdomen. No guarding, rebound, or rigidity. Normal bowel sounds are audible. No tenderness on palpation of McBurney's point. Extremities: No clubbing, cyanosis, or edema. 2+ pulses in all 4 extremities. No calf tenderness on palpation. Back: No costovertebral angle tenderness to palpation. Neurologic Exam: Cranial nerves 2-12 were intact on exam. Strength is 4/5 in all 4 extremities related to generalized weakness. No sensory deficits noted. Skin Exam: No rash noted. Intact skin that is warm and dry. Data Data Last Documented VS Vital Signs Date Time Temp Pulse Resp B/P Pulse Ox O2 Delivery O2 Flow Rate FiO2 06/30/16 02:23 60 16 99 06/30/16 01:18 97.8 160/72 Orders Electrocardiogram (06/30/16 01:38) Complete Blood Count With Diff (06/30/16 01:38) Comprehensive Metabolic Panel (06/30/16 01:38) Creatine Kinase (Cpk) (06/30/16 01:38) Ckmb (Isoenzyme) Profile (06/30/16 01:38) Troponin I (06/30/16 01:38) B-Type Natriuretic Peptide (06/30/16 01:38) Prothrombin Time / Inr (Pt) (06/30/16 01:38) Act Partial Throm Time (Ptt) (06/30/16 01:38) Lipase (06/30/16 01:38) Urinalysis - C+S If Indicated (06/30/16 01:38) Magnesium (Mg) (06/30/16 01:38) Thyroid Stimulating Hormone (06/30/16 01:38) Chest, Single Ap (06/30/16 01:38) Iv Access Insert/Monitor (06/30/16 01:38) Ecg Monitoring (06/30/16 01:38) Oximetry (06/30/16 01:38) Sodium Chlor 0.9% 250 Ml Inj (Ns 250 Ml (06/30/16 01:45) Ondansetron Inj (Zofran Inj) (06/30/16 01:45) Lactic Acid Sepsis Protocol (06/30/16 02:56) Blood Culture (06/30/16 02:56) Aztreonam Inj (Azactam Inj) (06/30/16 02:56) Levofloxacin 750 Mg Premix Inj (Levaquin (06/30/16 02:56) Aspirin Chew (Aspirin Chew) (06/30/16 09:00) Nitroglycerin 2% Oint (Nitroglycerin 2% (06/30/16 03:00) Pantoprazole Inj (Protonix Inj) (06/30/16 03:00) Aspirin Chew (Aspirin Chew) (06/30/16 03:15) Admit Order (Ed Use Only) (06/30/16 03:23) Admit To Inpatient (06/30/16 ) Vital Signs (Adult) Q4H (06/30/16 03:27) Activity Oob With Assistance (06/30/16 03:27) Core Inserter / Telemetry .CONTINUOUS (06/30/16 03:27) Diet Heart Healthy (06/30/16 Breakfast) Sodium Chloride 0.9% Flush (Ns Flush) (06/30/16 03:30) Sodium Chloride 0.9% Flush (Ns Flush) (06/30/16 09:00) Basic Metabolic Panel (Bmp) (07/01/16 06:00) Complete Blood Count With Diff (07/01/16 06:00) Pt Request For Service (06/30/16 03:27) Case Management Consult (06/30/16 03:27) Naloxone Inj (Narcan Inj) (06/30/16 03:30) Inpatient Certification (06/30/16 ) Cefepime Inj (Maxipime Inj) (06/30/16 09:00) Labs Laboratory Tests Test 06/30/16 06/30/16 01:45 01:55 White Blood Count 5.0 TH/MM3 Red Blood Count 2.55 MIL/MM3 Hemoglobin 8.7 GM/DL Hematocrit 25.9 % Mean Corpuscular Volume 101.3 FL Mean Corpuscular Hemoglobin 34.2 PG Mean Corpuscular Hemoglobin 33.7 % Concent Red Cell Distribution Width 15.3 % Platelet Count 59 TH/MM3 Mean Platelet Volume 9.1 FL Neutrophils (%) (Auto) % Lymphocytes (%) (Auto) % Monocytes (%) (Auto) % Eosinophils (%) (Auto) % Basophils (%) (Auto) % Neutrophils # (Auto) TH/MM3 Lymphocytes # (Auto) TH/MM3 Monocytes # (Auto) TH/MM3 Eosinophils # (Auto) TH/MM3 Basophils # (Auto) TH/MM3 CBC Comment AUTO DIFF Differential Total Cells 100 Counted Neutrophils % (Manual) 14 % Lymphocytes % 83 % Eosinophils % 2 % Basophils % 1 % Neutrophils # (Manual) 0.7 TH/MM3 Differential Comment FINAL DIFF MANUAL Platelet Estimate LOW Platelet Morphology Comment NORMAL Ovalocytes 1+ Prothrombin Time 10.7 SEC Prothromb Time International 1.0 RATIO Ratio Activated Partial 23.6 SEC Thromboplast Time Sodium Level 140 MEQ/L Potassium Level 4.1 MEQ/L Chloride Level 108 MEQ/L Carbon Dioxide Level 25.4 MEQ/L Anion Gap 7 MEQ/L Blood Urea Nitrogen 31 MG/DL Creatinine 1.13 MG/DL Estimat Glomerular Filtration 56 ML/MIN Rate Random Glucose 91 MG/DL Calcium Level 10.0 MG/DL Magnesium Level 1.9 MG/DL Total Bilirubin 0.3 MG/DL Aspartate Amino Transf 15 U/L (AST/SGOT) Alanine Aminotransferase 15 U/L (ALT/SGPT) Alkaline Phosphatase 82 U/L Total Creatine Kinase 35 U/L Troponin I 0.08 NG/ML B-Type Natriuretic Peptide 309 PG/ML Total Protein 6.4 GM/DL Albumin 3.1 GM/DL Lipase 185 U/L Thyroid Stimulating Hormone 1.850 uIU/ML 3rd Gen Urine Color LIGHT-YELLOW Urine Turbidity CLEAR Urine pH 6.0 Urine Specific [place] 1.008 Urine Protein NEG mg/dL Urine Glucose (UA) NEG mg/dL Urine Ketones NEG mg/dL Urine Occult Blood NEG Urine Nitrite NEG Urine Bilirubin NEG Urine Urobilinogen LESS THAN 2.0 MG/DL Urine Leukocyte Esterase NEG Urine RBC 1 /hpf Urine WBC LESS THAN 1 /hpf Microscopic Urinalysis Comment CATH-CULT NOT IND MDM Medical Decision Making Medical Screen Exam Complete: Yes Emergency Medical Condition: Yes Medical Record Reviewed: Yes Differential Diagnosis Dehydration, versus electrolyte derangements, versus an infectious process such as pneumonia versus urinary tract infection, versus acute coronary syndrome, versus symptomatic anemia Narrative Course During the course of the patients emergency department visit, the patients history, examination, and differential diagnosis were reviewed with the patient. The patient had IV access obtained and blood work sent for analysis. The patient was placed on a telemetry monitor with oximetry and blood pressure monitoring. An EKG was done on arrival. The patient's EKG shows a sinus rhythm with a first-degree AV block, QRS duration is 89 ms, QTC is 393 ms, nonspecific ST-T wave abnormalities are noted, T waves are inverted in V1, V2, aVL. The patient was initially provided at 250 mL IV fluid bolus, Zofran 4 mg IV. The patients laboratory studies were reviewed and remarkable for white count of 5, hemoglobin 8.7, platelets 59 with a neutrophil percent of 14, lymphocytosis of 83. The patient's hemoglobin is at her baseline compared to previously. CMP is remarkable for chloride of 108, BUN 31, creatinine 1.13, GFR 56, CPK 35, troponin I 0.08, BNP 309, lipase 185, TSH 1.85. The patient's elevated troponin could be related to the patient's renal insufficiency, however given her reports of chest discomfort and indigestion, the patient was given aspirin 162 mg by mouth 1, nitroglycerin 1 inch the chest wall. PT 10.7 , INR 1.0, PTT 23.6. From reviewing the electronic medical record, the patient was admitted with generalized weakness in March 2016 and at that time did have an elevated troponin at 0.11. According to the furniture mover helper consultation the patient last had a stress test done in 2012 this was mildly abnormal and he was medically managing her. Radiology studies were reviewed and remarkable for bilateral lower lung patchy infiltrates. The patient will be admitted to the hospital for generalized weakness, pneumonia , immunocompromise state elated to chemotherapy. The patient was started on Azactam and Levaquin due to her penicillin allergy. The patients results were discussed with the patient, including the plan of care. I explained that further testing and/ or monitoring is indicated based on the patients history, examination, and/ or laboratory findings. Therefore, I recommended admission for additional evaluation. The patient expressed understanding and was agreeable with this plan. The patient was admitted to the hospital in stable condition and [facility] Physician Communication Physician Communication The patient's case was d/w Dr. Lane who did agree to admit the patient for continued evaluation and treatment. Diagnosis Primary Impression: Weakness generalized Additional Impression: Pneumonia Qualified Code: J18.9 - Pneumonia of both lower lobes due to infectious organism Admitting Information Admitting Physician Requests: Admit Vickie Damian MD Jun 30, 2016 02:01
[2016-06-30 02:11] LABS: BLOOD, URINE NEG (NEG); GLUCOSE,URINE NEG (NEG); KETONE, URINE NEG (NEG); NITRITE,URINE NEG (NEG); URINE COLOR LIGHT-YELLOW (YELLW/STRAW)
[2016-06-30 02:15] LABS: APTT (PATIENT) 23.6 SEC (24.3-30.1); PROTHROMBIN TIME - PATIENT 10.7 SEC (9.8-11.6)
--- NOTE | 2016-06-30 02:15 | RADRPT ---
EXAM DATE/TIME: 06/30/2016 01:53 [facility] COMPARISON: CHEST SINGLE AP, March 08, 2016, 17:12. INDICATIONS : Cough. MEDICAL HISTORY : None. SURGICAL HISTORY : None. ENCOUNTER: Initial ACUITY: 1 day PAIN SCORE: 0/10 LOCATION: Bilateral chest FINDINGS: There is scattered patchy infiltrates in both lung bases. This is new compared to the prior study. Th e heart size is stable. No definite pleural effusions. There is evidence of previous cardiothoracic s urgery. The bony structures are stable. CONCLUSION: There are new patchy infiltrates in both lung bases. Guillermo Blount MD on June 30, 2016 at 2:12 Board Certified Radiologist. This report was verified electronically.
[2016-06-30 02:18] LABS: COMMENT (UR) CATH-CULT NOT IND; CULTURE IF INDICATED CATH CULTURE NOT IND
[2016-06-30 02:18] LABS: ALT (GPT) 15 U/L (10-53); ANION GAP 7 MEQ/L (5-15); AST (GOT) 15 U/L (15-37); BICARBONATE 25.4 MEQ/L (21.0-32.0); BLOOD UREA NITROGEN 31 MG/DL (7-18); CHLORIDE 108 MEQ/L (98-107); GLOMERULAR FILTRATION RATE 56 ML/MIN (>89); MAGNESIUM 1.9 MG/DL (1.5-2.5); POTASSIUM 4.1 MEQ/L (3.5-5.1); SODIUM (NA) 140 MEQ/L (136-145)
[2016-06-30 02:21] LABS: BASOPHILS 1 % (0-2); EOSINOPHILS 2 % (0-4); NEUTROPHIL # MANUAL DIFF 0.7 TH/MM3 (1.8-7.7); POLYS (SEG NEUTROPHILS) 14 % (16-70); WBC DIFF SAMPLE 100
[2016-06-30 02:22] LABS: OVALOCYTES 1+ (NORMAL); PLATELET ESTIMATE SMEAR LOW (NORMAL); PLATELET MORPHOLOGY NORMAL (NORMAL)
[2016-06-30] MEDS ORDERED: NAME5TAB2 PO (02:22)
[2016-06-30] MEDS ORDERED: MELO-1 PO (02:22)
[2016-06-30 02:23] LABS: SCAN/DIFF FINAL DIFF MANUAL
[2016-06-30 02:28] LABS: ALKALINE PHOSPHATASE 82 U/L (45-117); TOTAL BILIRUBIN ADULT 0.3 MG/DL (0.2-1.0)
[2016-06-30 02:31] LABS: CREATINE KINASE 35 U/L (26-192)
[2016-06-30] MEDS ORDERED: LEVOFLOXACIN 750 MG PREMIX INJ 150 ML IV STA (02:56)
[2016-06-30] MEDS ORDERED: AZTREONAM INJ 2,000 MG in SODIUM CHLORIDE 0.9% INJ 100 ML IV STA (02:56)
[2016-06-30] MEDS ORDERED: PANTOPRAZOLE SODIUM 40 MG VIAL IV PUSH ONE (03:00)
[2016-06-30] MEDS ORDERED: NITROGLYCERIN 2% OINT 1 GM PACKET TOPICAL ONE (03:00)
[2016-06-30] MEDS ORDERED: ASPIRIN 81 MG CHEW TAB CHEW ONE (03:15)
[2016-06-30] MEDS ORDERED: SODIUM CHLORIDE 0.9% FLUSH 10 ML FLUSH IV FLUSH PRN (03:30)
[2016-06-30] MEDS ORDERED: NALOXONE HCL 0.4 MG/ML AMP IV PRN (03:30)
[2016-06-30] MEDS ORDERED: GLUCAGON 1 MG/ML VIAL OTHER PRN (03:45)
[2016-06-30] MEDS ORDERED: DEXTROSE 50% IN WATER 50 ML VIAL(D50) IV PUSH PRN (03:45)
--- NOTE | 2016-06-30 04:33 | HHI.HP ---
[facility] Service [facility] Primary Care Physician Fadumo Sagastume MD Admission Diagnosis Generalized weakness, pneumonia, on chemotherapy Diagnoses: Chief Complaint: shortness of breath, weakness Travel History International Travel<30 Days: No Contact w/Intl Traveler <30 Da: No Traveled to Known Affected Are: No History of Present Illness History from patient with her daughter at the bedside, your physician communication, and review of medical records. Patient is known to me from her last hospitalization admission date. She reports that she came back to hospital today because for the past 1 week, she was having generalized weakness and at this point she feels that she is just not able to move her hands at all bilaterally. She also reports that she has had chemotherapy and her last dose was on Tuesday. According to the daughter who was at the bedside, patient was receiving chemotherapy about 4 times so far and pretty much the time, they had to stop the chemotherapy prematurely because of patient having low blood pressure or visual disturbance. She states that the chemotherapy regimen was then finally changed to the lowest regimen. She first received this low dose regimen on Tuesday. Apart from this generalized weakness, patient denies any vomiting/diarrhea/ urinary burning or pain on urination. She reports of no nausea. She does have chronic right upper extremity pain and she felt that she thought that swelling actually is there on her left side. Patient denies any diarrhea. Denies any vomiting. Denies seeing blood in her vomit or in stool. Upon further questioning, patient does complain of shortness of breath. She states she felt bloated as well particularly in her abdomen. She reports of night sweats which has been present for a while. Also reports of mild cough but states this was also going on and off. Patient reports her left lower extremity is also feeling tight and swelling. She's not sure how long she has had this. Review of Systems Except as stated in HPI: all other systems reviewed are Neg Past Family Social History Past Medical History Hypertension Diabetes CADstatus post CABG in 1997 Carotid artery stenosis History of lymphoma versus leukemia. 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 History of renal stones History of left eye damage from herpes zoster ophthalmicus History of incomplete bladder emptying Past Surgical History Coronary angiogram CABG Cholecystectomy Appendectomy Hysterectomy Reported Medications Patient's medications list are reviewed. Patient also has a list with her. This was reviewed. Allergies: Coded Allergies: Penicillin (Verified Allergy, Severe, Rash, SOB, 06/30/16) Family History Denies family history of any medical issues that she knows of Social History Denies smoking. Denies any alcohol abuse or drug abuse. Lives by herself. Daughter would cook for her and bringing food. Ambulatory without assistance. Physical Exam Vital Signs Vital Signs Date Time Temp Pulse Resp B/P Pulse Ox O2 Delivery O2 Flow Rate FiO2 06/30/16 02:23 60 16 99 06/30/16 01:24 18 06/30/16 01:18 97.8 63 18 160/72 97 Physical Exam GENERAL: This is ultimately lady, looks quite weak and chronically ill. Significant difference from when I last saw her. Not in acute distress SKIN: No rashes, ecchymoses or lesions. Cool and dry. HEAD: Atraumatic. Normocephalic. No temporal or scalp tenderness. EYES: No scleral icterus. No injection or drainage. ENT: Nose without bleeding, purulent drainage or septal hematoma. Airway patent. NECK: Trachea midline. No JVD CARDIOVASCULAR: Regular rate and rhythm without murmurs, gallops, or rubs. RESPIRATORY: Bilaterally decreased air entry. GASTROINTESTINAL: Abdomen soft, mild tenderness at right lower quadrant, nondistended. No guarding. MUSCULOSKELETAL: Extremities without clubbing, cyanosis, or edema. No calf tenderness. NEUROLOGICAL: Awake and alert. Motor and sensory grossly within normal limits. Normal speech. Laboratory Laboratory Tests Test 06/30/16 06/30/16 06/30/16 01:45 01:55 03:10 White Blood Count 5.0 Red Blood Count 2.55 Hemoglobin 8.7 Hematocrit 25.9 Mean Corpuscular Volume 101.3 Mean Corpuscular Hemoglobin 34.2 Mean Corpuscular Hemoglobin 33.7 Concent Red Cell Distribution Width 15.3 Platelet Count 59 Mean Platelet Volume 9.1 Neutrophils (%) (Auto) Lymphocytes (%) (Auto) Monocytes (%) (Auto) Eosinophils (%) (Auto) Basophils (%) (Auto) Neutrophils # (Auto) Lymphocytes # (Auto) Monocytes # (Auto) Eosinophils # (Auto) Basophils # (Auto) CBC Comment AUTO DIFF Differential Total Cells 100 Counted Neutrophils % (Manual) 14 Lymphocytes % 83 Eosinophils % 2 Basophils % 1 Neutrophils # (Manual) 0.7 Differential Comment FINAL DIFF MANUAL Platelet Estimate LOW Platelet Morphology Comment NORMAL Ovalocytes 1+ Prothrombin Time 10.7 Prothromb Time International 1.0 Ratio Activated Partial 23.6 Thromboplast Time Sodium Level 140 Potassium Level 4.1 Chloride Level 108 Carbon Dioxide Level 25.4 Anion Gap 7 Blood Urea Nitrogen 31 Creatinine 1.13 Estimat Glomerular Filtration 56 Rate Random Glucose 91 Calcium Level 10.0 Magnesium Level 1.9 Total Bilirubin 0.3 Aspartate Amino Transf 15 (AST/SGOT) Alanine Aminotransferase 15 (ALT/SGPT) Alkaline Phosphatase 82 Total Creatine Kinase 35 Troponin I 0.08 B-Type Natriuretic Peptide 309 Total Protein 6.4 Albumin 3.1 Lipase 185 Thyroid Stimulating Hormone 1.850 3rd Gen Urine Color LIGHT-YELLOW Urine Turbidity CLEAR Urine pH 6.0 Urine Specific [place] 1.008 Urine Protein NEG Urine Glucose (UA) NEG Urine Ketones NEG Urine Occult Blood NEG Urine Nitrite NEG Urine Bilirubin NEG Urine Urobilinogen LESS THAN 2.0 Urine Leukocyte Esterase NEG Urine RBC 1 Urine WBC LESS THAN 1 Microscopic Urinalysis Comment CATH-CULT NOT IND Lactic Acid Level 1.2 Date/Time Procedure Status Source Growth 06/30/16 03:10 Aerobic Blood Culture Received Blood Peripheral Pending 06/30/16 03:10 Anaerobic Blood Culture Received Blood Peripheral Pending Result Diagram: 06/30/16 0145 06/30/16 0145 Assessment and Plan Assessment and Plan Impression: Generalized weakness/cough/shortness of breathsecondary to pneumonia Bilateral pneumonia/airspace disease Elevated BNP Mild elevated troponin Report of left lower extremity swelling and tendernessrule out DVT Plan: Cefepime 2 g IV every 12 hours. We'll follow up culture results. Consult patient's oncologist. Would watch out for evidence of congestive heart failure. Patient does have elevated troponin. She was complaining of mild shortness of breath at home as well. Watch for fluid overload. Would obtain serial cardiac enzymes and EKGs to rule out ACS. Obtain ultrasound of bilateral lower extremities to rule out DVT Hold metformin. Resume rest of her home medications DVT prophylaxiswith heparin. GI prophylaxis on pantoprazole. Discussed Condition With Patient, her daughter at the bedside, ER physician Physician Certification 2 Midnight Certification Type: Admission for Inpatient Services Order for Inpatient Services The services are ordered in accordance with Medicare regulations or non- Medicare payer requirements, as applicable. In the case of services not specified as inpatient-only, they are appropriately provided as inpatient services in accordance with the 2-midnight benchmark. Estimated LOS (days): 2 days is the estimated time the patient will need to remain in the hospital, assuming treatment plan goals are met and no additional complications. Post-Hospital Plan: Not yet determined Sandro Lane MD Jun 30, 2016 04:33
--- NOTE | 2016-06-30 05:54 | RADRPT ---
EXAM DATE/TIME: 06/30/2016 05:13 [facility] COMPARISON: US LEG BILATERAL VENOUS DOPPLER, March 08, 2016, 22:57. INDICATIONS : Swelling in bilateral legs. MEDICAL HISTORY : Hypercholesterolemia. Hypertension. Gastroesophageal reflux disease. Kidney stones. Arthritis. Syncop e. Parathyroid disease. Diabetes. Anxiety. Ovarian cancer. Shingles. SURGICAL HISTORY : CABGAppendectomy. Cholecystectomy.Hysterectomy. ENCOUNTER: Subsequent ACUITY: 1 day PAIN SCORE: 0/10 LOCATION: Bilateral legs. TECHNIQUE: Venous ultrasound of the left and right leg was performed from the inguinal ligament to the proximal calf. Real-time, color Doppler and spectral tracing, compression and augmentation techniques were us ed. FINDINGS: RIGHT LEG: There is normal compressibility of the deep venous system from the inguinal region to the proximal ca lf. No echogenic clot is seen in the lumen of the common femoral, femoral, popliteal, and posterior tibial veins. There is a normal response of the venous system to proximal and distal augmentation an d respiration. LEFT LEG: There is normal compressibility of the deep venous system from the inguinal region to the proximal ca lf. No echogenic clot is seen in the lumen of the common femoral, femoral, popliteal, and posterior tibial veins. There is a normal response of the venous system to proximal and distal augmentation an d respiration. CONCLUSION: No evidence of DVT. No significant change compared to the prior study. Guillermo Blount MD on June 30, 2016 at 5:50 Board Certified Radiologist. This report was verified electronically.
[2016-06-30] MEDS ORDERED: INSULIN ASPART SUPPLEMENTAL SCALE SQ SCH (07:00)
[2016-06-30] MEDS: SODIUM CHLORIDE 0.9% FLUSH 10 ML FLUSH IV FLUSH SCH ×2 (08:16→22:29)
[2016-06-30] MEDS: CEFEPIME INJ 2,000 MG in SODIUM CHLORIDE 0.9% INJ 100 ML IV SCH ×2 (08:16→22:29)
[2016-06-30] MEDS: DORZOLAMIDE/TIMOLOL OPTH SOLN 10 ML BTL LEFT EYE SCH ×2 (08:17→22:28)
[2016-06-30] MEDS: MEMANTINE HCL 5 MG TAB PO SCH (08:17)
[2016-06-30] MEDS: PANTOPRAZOLE SOD 40 MG DELAYED RELEASE TAB PO SCH (08:19)
[2016-06-30] MEDS: FUROSEMIDE 20 MG TAB PO SCH (08:19)
[2016-06-30] MEDS: DOCUSATE SODIUM 100 MG CAP PO SCH (08:20)
[2016-06-30] MEDS: GABAPENTIN 100 MG CAP PO SCH ×3 (08:20→18:00)
[2016-06-30] MEDS ORDERED: ASPIRIN 81 MG CHEW TAB CHEW SCH (09:00)
[2016-06-30] MEDS: ASPIRIN EC 81 MG TABEC PO SCH (09:00)
--- NOTE | 2016-06-30 10:03 | HHI.PR ---
Subjective Remarks Follow-up shortness of breath. States that she has dyspnea on exertion and gained 1 pound. Intermittent coughing and chills but no fever. Objective Vitals Vital Signs Date Time Temp Pulse Resp B/P Pulse Ox O2 Delivery O2 Flow Rate FiO2 06/30/16 04:29 57 18 132/63 98 06/30/16 02:23 60 16 99 06/30/16 01:24 18 06/30/16 01:18 97.8 63 18 160/72 97 I/O 06/29/16 06/29/16 06/29/16 06/30/16 06/30/16 06/30/16 07:00 15:00 23:00 07:00 15:00 23:00 Intake Total 200 ml Balance 200 ml Intake Oral 200 ml Result Diagram: 06/30/16 0145 06/30/16 0145 Imaging Last Impressions Chest X-Ray 06/30/16 0138 Signed Impressions: Service Date/Time: Thursday, June 30, 2016 01:53 - CONCLUSION: There are new patchy infiltrates in both lung bases. Guillermo Blount MD Lower Extremity Ultrasound 06/30/16 0000 Signed Impressions: Service Date/Time: Thursday, June 30, 2016 05:13 - CONCLUSION: No evidence of DVT. No significant change compared to the prior study. Guillermo Blount MD Objective Remarks GENERAL: Well-developed well-nourished in no distress on nasal cannula SKIN: Warm and dry. HEAD: Atraumatic. Normocephalic. EYES: Pupils equal and round. No scleral icterus. No injection or drainage. ENT: No nasal bleeding or discharge. Mucous membranes pink and moist. NECK: Trachea midline. No JVD. CARDIOVASCULAR: Regular rate and rhythm. RESPIRATORY: No accessory muscle use. Decreased Breath sounds equal bilaterally. Crackles right base GASTROINTESTINAL: Abdomen soft, non-tender, nondistended. MUSCULOSKELETAL: Extremities without clubbing, cyanosis but with bilateral trace edema. No obvious deformities. NEUROLOGICAL: Awake and alert. No obvious cranial nerve deficits. Motor grossly within normal limits. Five out of 5 muscle strength in the arms and legs. Normal speech. PSYCHIATRIC: Appropriate mood and affect; insight and judgment normal. Procedures none A/P Problem List: (1) Pneumonia ICD Code: J18.9 Status: Acute (2) Weakness generalized ICD Code: R53.1 Status: Acute Assessment and Plan Generalized weakness/cough/shortness of breathsecondary to pneumonia. Consult physical therapy Bilateral pneumonia/airspace disease. Continue cefepime and will obtain sputum culture, urinary pneumococcal and Legionella antigen and follow-up blood cultures Elevated BNP secondary to acute on chronic diastolic heart failure. Continue Lasix. CHF education, I/O and monitor weight. No DVT on Doppler sonogram Mild elevated troponin secondary to above. Patient denies chest pain. History of CAD. EKG with nonspecific T changes no change from previous. 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 Oncology consulted History of diabetes and hypertension. Continue outpatient medications as appropriate. Monitor fingerstick with sliding scale coverage DVT prophylaxis with SCD. Pharmacological prophylaxis contraindicated secondary to thrombocytopenia Problem Qualifiers (1) Pneumonia: Qualified Code: J18.9 - Pneumonia of both lower lobes due to infectious organism Jonatan Hollingsworth MD Jun 30, 2016 10:03
[2016-06-30] MEDS: METOPROLOL SUCCINATE 25 MG EXTENDED RELEASE TAB PO SCH (12:00)
[2016-06-30] MEDS: INSULIN ASPART SUPPLEMENTAL SCALE SQ SCH ×3 (12:00→21:00)
--- NOTE | 2016-06-30 19:52 | EKG ---
Date Performed: 06/30/2016 Time Performed: 08:13:36 PTAGE: 80 years EKG: Sinus rhythm WITH FIRST DEGREE AV BLOCK POSSIBLE LEFT ATRIAL ENLARGEMENT POSSIBLE LEFT VENTRICULAR HYPERTROPHY NO NSPECIFIC T-WAVE ABNORMALITY ABNORMAL ECG Since PREVIOUS TRACING , no significant change noted PREVIOUS TRACIN06/30/2016 01.31 DOCTOR: Danielle Horton Interpretating Date/Time 06/30/2016 19:51:36
--- NOTE | 2016-06-30 20:20 | EKG ---
Date Performed: 06/30/2016 Time Performed: 01:31:56 PTAGE: 80 years EKG: Sinus rhythm WITH FIRST DEGREE AV BLOCK MODERATE VOLTAGE CRITERIA FOR LVH, CONSIDER NORMAL VARIANT INFERIOR MYOCA RDIAL INFARCTION ABNORMAL ECG Since PREVIOUS TRACING , no significant change noted PREVIOUS TRACIN03/08/2016 20.17 DOCTOR: Danielle Horton Interpretating Date/Time 06/30/2016 20:19:45
[2016-06-30] MEDS: LATANOPROST 0.005% OPHT SOLN 2.5 ML BTL EACH EYE SCH (21:00)
[2016-07-01] VITALS (8 sets, daily range): BP systolic 113–137; BP diastolic 55–65; PULSE 52–59; RESP 17–18; TEMP 96.1–98.7; O2SAT 98–100
[2016-07-01] MEDS: INSULIN ASPART SUPPLEMENTAL SCALE SQ SCH ×4 (06:28→21:00)
[2016-07-01 08:28] LABS: AUTOMATED NEUTROPHIL # 0.5 TH/MM3 (1.8-7.7); BASOPHIL % 0.2 % (0.0-2.0); EOSINOPHIL # 0.1 TH/MM3 (0-0.4); EOSINOPHIL % 0.9 % (0.0-4.0); HEMATOCRIT 25.7 % (35.0-46.0); MEAN CELL VOLUME 102.3 FL (80.0-100.0); MEAN CORPUSCULAR HEMOGLOBIN 33.3 PG (27.0-34.0); MEAN CORPUSCULAR HGB CONC 32.6 % (32.0-36.0); MONO % 0.8 % (0.0-8.0); NEUT % 8.1 % (16.0-70.0); PLATELET COUNT 50 TH/MM3 (150-450); RED BLOOD COUNT 2.51 MIL/MM3 (4.00-5.30); RED CELL DISTRIBUTION WIDTH 15.6 % (11.6-17.2); WHITE BLOOD COUNT 6.6 TH/MM3 (4.0-11.0)
[2016-07-01 08:31] LABS: HEMO FLAGS AUTO DIFF
[2016-07-01] MEDS: ASPIRIN EC 81 MG TABEC PO SCH (09:00)
[2016-07-01 09:18] LABS: EOSINOPHILS 3 % (0-4); POLYS (SEG NEUTROPHILS) 7 % (16-70); WBC DIFF SAMPLE 100
[2016-07-01 09:20] LABS: NEUTROPHIL # MANUAL DIFF 0.5 TH/MM3 (1.8-7.7); PLATELET ESTIMATE SMEAR LOW (NORMAL); PLATELET MORPHOLOGY NORMAL (NORMAL); SCAN/DIFF FINAL DIFF MANUAL; SMUDGE CELLS PRESENT PRESENT
[2016-07-01 09:21] LABS: OVALOCYTES 1+ (NORMAL)
[2016-07-01] MEDS: DORZOLAMIDE/TIMOLOL OPTH SOLN 10 ML BTL LEFT EYE SCH ×2 (09:32→21:35)
[2016-07-01] MEDS: CEFEPIME INJ 2,000 MG in SODIUM CHLORIDE 0.9% INJ 100 ML IV SCH ×2 (09:33→21:35)
[2016-07-01] MEDS: MEMANTINE HCL 5 MG TAB PO SCH (09:34)
[2016-07-01] MEDS: METOPROLOL SUCCINATE 25 MG EXTENDED RELEASE TAB PO SCH (09:34)
[2016-07-01] MEDS: SODIUM CHLORIDE 0.9% FLUSH 10 ML FLUSH IV FLUSH SCH ×2 (09:34→21:35)
[2016-07-01] MEDS: DOCUSATE SODIUM 100 MG CAP PO SCH (09:34)
[2016-07-01] MEDS: PANTOPRAZOLE SOD 40 MG DELAYED RELEASE TAB PO SCH (09:34)
[2016-07-01] MEDS: GABAPENTIN 100 MG CAP PO SCH ×3 (09:34→17:18)
[2016-07-01] MEDS: FUROSEMIDE 20 MG TAB PO SCH (09:35)
[2016-07-01 09:43] LABS: BICARBONATE 28.4 MEQ/L (21.0-32.0); POTASSIUM 3.9 MEQ/L (3.5-5.1)
--- NOTE | 2016-07-01 09:43 | MB ---
cc: CHIKIS MCNEAL DATE OF CONSULTATION 06/30/2016 DATE OF 1935 REASON FOR CONSULTATION Patient with a history of marginal zone lymphoma and lymphoproliferative disorder who presents to the emergency department with cough, shortness of breath and generalized weakness. HISTORY OF PRESENT ILLNESS Ms. 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 She has splenomegaly. The patient has refractory anemia and she has leukocytosis in additional to diffuse lymphadenopathy. Due to worsening anemia and fatigue and increasing size of the spleen, the patient was started on treatment with Rituxan. She initially received to partial doses of Rituxan. She received a third cycle of Rituxan on Tuesday with dose adjustment. She tolerated the treatment without any major issues, however now she presents to the emergency room with dyspnea, generalized weakness and not feeling well. On admission, the patient had a chest x-ray which was concerning for pneumonia involving the base of bilateral lungs. She also had Doppler ultrasound on admission. There was no evidence of DVT in the lower extremities. The patient was admitted to the hospital. She was started on IV antibiotics. Blood cultures were obtained which do not show any growth thus far. She is undergoing additional workup for pneumonia. She endorses fatigue and dyspnea which is somewhat improved today. She has intermittent cough. No fevers. REVIEW OF SYSTEMS A comprehensive 14-point review of systems was completed which is negative except as described in the HPI. PAST MEDICAL HISTORY 1. Splenic marginal zone lymphoma 2. Hypertension 3. Hyperlipidemia 4. Diabetes type 2 5. 6. Coronary artery disease status post cabbage in 1997 7. 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 PAST SURGICAL HISTORY 1. Bone marrow biopsy. 2. Coronary angiogram 3. CABG 4. Cholecystectomy 5. Appendectomy 6. Hysterectomy MEDICATIONS 1. Latanoprost one drop each eye q.h.s. 2. Insulin aspart sliding scale 3. Cefepime 2 grams IV q.12 h 4. Norvasc 10 mg tablet p.o. daily 5. Aspirin 81 mg p.o. daily 6. Dorzolamide/Timolol 2/0.5% ophthalmic solution b.i.d. left eye 7. Furosemide 10 mg p.o. daily 8. Gabapentin 2 mg t.i.d. p.o. 9. Amantadine 5 mg tablet p.o. daily 10. Metoprolol 25 mg one tablet p.o. daily 11. Pantoprazole 40 mg p.o. daily 12. Docusate 100 mg p.o. daily ALLERGIES She is allergic to PENICILLIN. PHYSICAL EXAM VITAL SIGNS: Blood pressure is 106/57, pulse is 60, temperature is 100.1, O2 sats are 99% on room air. GENERAL: An elderly frail female in no apparent distress. HEENT: Pupils are equal, round, and reactive to light. EOMI. Oropharynx, no lesions. NECK: Supple. No JVD, no bruits. No lymphadenopathy. CHEST: Clear to auscultation bilaterally. She has diminished breath sounds at the bases. CARDIAC: S1-S2. Regular rate and rhythm. ABDOMEN: Soft. Complains of abdominal fullness to the right. Large spleen palpated. EXTREMITIES: Without any edema, erythema or cyanosis. SKIN: Without any petechiae lesion or bruises. NEUROLOGIC: No focal deficits. PSYCHIATRIC: Mood and affect is appropriate. LABORATORY DATA WBCs 5, hemoglobin is 8.7, platelet count is 69,000. Serum chemistries show a sodium of 140, potassium 4.1, BUN is 31, creatinine is 1.13, lactic acid is 1.2. BNP is elevated at 309. Troponins are borderline elevated. Albumin is 3.1, TSH is 1.85. IMAGING Reviewed in the EMR. ASSESSMENT/PLAN This is an 80-year-old female with a diagnosis of beatriz splenic marginal zone lymphoma who is currently being treated with single-agent Rituxan. She had lymphocytosis, splenomegaly, refractory anemia and lymphadenopathy and progressive fatigue. She received her last Rituxan treatment on Tuesday. She presented to the emergency room with acute dyspnea, cough and not feeling well. 1. Acute cough and dyspnea secondary to acute on chronic diastolic heart failure. She has elevated BNP. I agree with primary teams management. Her troponins are mildly elevated which is secondary to CHF and mild kidney insufficiency. Chest x-ray reveals bilateral lower lobe possible pneumonia. Agree with IV antibiotics. Follow blood cultures. She has a low grade fevers. If she continues to spike fever, we will have to expand her antibiotics. 2. Splenic marginal zone lymphoma. She has had good response to the treatment with a reduction in her white blood cell count. Hemoglobin has been stable and she has not required blood transfusion for several weeks. 3. Anemia, hemoglobin 8.7. My threshold for transfusion is 7.5 or less unless she is symptomatic. 4. Thrombocytopenia. Platelet count is 59,000. There is no evidence of bleeding. We will continue to monitor. Thank you for allowing me to participate in the care of this patient. I will continue to follow this patient along. MD BRITTANIE Salazar/NATALIIA /11:08 PM /9:19 AM
[2016-07-01] MEDS ORDERED: FUROSEMIDE 20 MG/2 ML VIAL IV PUSH ONE (17:30)
--- NOTE | 2016-07-01 17:30 | HHI.PR ---
Subjective Remarks Follow-up dyspnea. Improving shortness of breath still requiring nasal cannula. Discussed with RN Objective Vitals Vital Signs Date Time Temp Pulse Resp B/P Pulse Ox O2 Delivery O2 Flow Rate FiO2 07/01/16 12:42 96.1 53 18 113/55 98 07/01/16 08:46 96.9 56 18 118/59 98 07/01/16 08:39 54 07/01/16 04:00 97.9 52 17 129/61 100 07/01/16 00:00 98.7 59 17 137/65 98 06/30/16 20:00 61 06/30/16 20:00 100.1 61 18 106/57 99 I/O 06/30/16 06/30/16 06/30/16 07/01/16 07/01/16 07/01/16 07:00 15:00 23:00 07:00 15:00 23:00 Intake Total 200 ml Output Total 900 ml Balance 200 ml -900 ml Intake Oral 200 ml Output Urine Total 900 ml # Voids 1 1 1 1 Result Diagram: 07/01/16 0756 07/01/16 0756 Imaging Last Impressions Chest X-Ray 06/30/16 0138 Signed Impressions: Service Date/Time: Thursday, June 30, 2016 01:53 - CONCLUSION: There are new patchy infiltrates in both lung bases. Guillermo Blount MD Lower Extremity Ultrasound 06/30/16 0000 Signed Impressions: Service Date/Time: Thursday, June 30, 2016 05:13 - CONCLUSION: No evidence of DVT. No significant change compared to the prior study. Guillermo Blount MD Objective Remarks GENERAL: Well-developed well-nourished in no distress on nasal cannula SKIN: Warm and dry. HEAD: Atraumatic. Normocephalic. EYES: Pupils equal and round. No scleral icterus. No injection or drainage. ENT: No nasal bleeding or discharge. Mucous membranes pink and moist. NECK: Trachea midline. No JVD. CARDIOVASCULAR: Regular rate and rhythm. RESPIRATORY: No accessory muscle use. Decreased Breath sounds equal bilaterally. Crackles right base GASTROINTESTINAL: Abdomen soft, non-tender, nondistended. MUSCULOSKELETAL: Extremities without clubbing, cyanosis but with bilateral trace edema. No obvious deformities. NEUROLOGICAL: Awake and alert. No obvious cranial nerve deficits. Motor grossly within normal limits. Five out of 5 muscle strength in the arms and legs. Normal speech. Nonfocal PSYCHIATRIC: Appropriate mood and affect; insight and judgment normal. Procedures none A/P Problem List: (1) Pneumonia ICD Code: J18.9 Status: Acute (2) Weakness generalized ICD Code: R53.1 Status: Acute Assessment and Plan Generalized weakness/cough/shortness of breathsecondary to pneumonia. Improving. Physical therapy recommended home health care PT versus rehabilitation with wheeled walker. Therapy Bilateral pneumonia/airspace disease. Continue cefepime and will obtain sputum culture, urinary pneumococcal and Legionella antigen and follow-up blood cultures. Studies negative to date. We'll switch to Augmentin in the morning Elevated BNP secondary to acute on chronic diastolic heart failure. Still requiring oxygen and will give extra dose of Lasix 20 mg IV 1 and continue by mouth Lasix. Repeat BMP and magnesium in the morning. CHF education, I/O and monitor weight. No DVT on Doppler sonogram Mild elevated troponin secondary to above. Patient denies chest pain. History of CAD. EKG with nonspecific T changes no change from previous. 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 Oncology consulted History of diabetes and hypertension. Continue outpatient medications as appropriate. Monitor fingerstick with sliding scale coverage DVT prophylaxis with SCD. Pharmacological prophylaxis contraindicated secondary to thrombocytopenia Discharge Planning Anticipate discharge in the morning Problem Qualifiers (1) Pneumonia: Qualified Code: J18.9 - Pneumonia of both lower lobes due to infectious organism Jonatan Hollingsworth MD Jul 01, 2016 17:30
[2016-07-01] MEDS ORDERED: LEVA750T PO (17:33)
--- NOTE | 2016-07-01 17:33 | HHI.DCPOC ---
Discharge Care Plan Diagnosis: (1) Pneumonia (2) Weakness generalized (3) Hypertensive heart disease with congestive heart failure Your Health Problems Are: Difficulty with ADL Exercise Tolerance Goals to Promote Your Health * To prevent worsening of your condition and complications * To maintain your health at the optimal level Directions to Meet Your Goals Take your medications as prescribed Follow your dietary instruction Follow activity as directed Keep your appointments as scheduled Take your immunizations and boosters as scheduled If your symptoms worsen call your PCP, if no PCP go to Urgent Care Center or Emergency Room Smoking is Dangerous to Your Health. Avoid second hand smoke Call the 24-hour hour crisis hotline for domestic abuse at Jonatan Hollingsworth MD Jul 01, 2016 17:33
--- NOTE | 2016-07-01 17:34 | HHI.FF ---
Face to Face Verification Diagnosis: (1) Hypertensive heart disease with congestive heart failure (2) Pneumonia (3) Weakness generalized Physical Therapy Order: Evaluate and Treat, Improve ambulation, Strength and gait training Home Health Nursing Order: Medical education Signs/symptoms of disease process CHF education Oxygen administration education Medication education-adverse effect Nursing assessment with vital signs I have seen patient Romy Ramirez on 07/01/16. My clinical findings support the need for the requested home health care services because: Patient has SOB I certify that my clinical findings support that this patient is homebound because: Unsteady gait/balance Unsafe to leave home unassisted Need for psychosocial assistance Poor cardiac reserve Jonatan Hollingsworth MD Jul 01, 2016 17:34
[2016-07-01] MEDS ORDERED: OXYGENTANK NAS.CANULA (17:36)
[2016-07-01] MEDS ORDERED: WALKER WHEELS/F1 MIS (17:36)
--- NOTE | 2016-07-01 18:04 | EKG ---
Date Performed: 06/30/2016 Time Performed: 14:50:08 PTAGE: 80 years EKG: Sinus rhythm WITH FIRST DEGREE AV BLOCK INFERIOR MYOCARDIAL INFARCTION Nonspecific T-wave changes ABNORMAL ECG No change compared to prior study of 06/30/2016. PREVIOUS TRACING : 06/30/2016 08.13 DOCTOR: Glenroy Harman Interpretating Date/Time 07/01/2016 18:02:10
[2016-07-01] MEDS ORDERED: PILL SPLITTER OTHER PRN (18:30)
[2016-07-01] MEDS: LATANOPROST 0.005% OPHT SOLN 2.5 ML BTL EACH EYE SCH (21:35)
--- NOTE | 2016-07-01 22:50 | PD.ONC.PN ---
Subjective Subjective Remarks feels somewhat better today. sitting up and eating lunch afebrile Objective Data Date Time Temp Pulse Resp B/P Pulse Ox O2 Delivery O2 Flow Rate FiO2 07/01/16 16:00 96.6 54 18 120/57 98 07/01/16 12:42 96.1 53 18 113/55 98 07/01/16 08:46 96.9 56 18 118/59 98 07/01/16 08:39 54 07/01/16 04:00 97.9 52 17 129/61 100 07/01/16 00:00 98.7 59 17 137/65 98 07/01/16 07/01/16 07/01/16 07:00 15:00 23:00 Intake Total 540 ml Output Total 900 ml Balance -360 ml Result Diagram: 07/01/16 0756 07/01/16 0756 Laboratory Results Laboratory Tests Test 07/01/16 07/01/16 05:45 07:56 Sodium Level MEQ/L 142 MEQ/L Potassium Level MEQ/L 3.9 MEQ/L Chloride Level MEQ/L 109 MEQ/L Carbon Dioxide Level MEQ/L 28.4 MEQ/L Anion Gap MEQ/L 5 MEQ/L Blood Urea Nitrogen MG/DL 22 MG/DL Creatinine MG/DL 0.82 MG/DL Estimat Glomerular Filtration ML/MIN 81 ML/MIN Rate Random Glucose MG/DL 96 MG/DL Calcium Level MG/DL 9.8 MG/DL White Blood Count 6.6 TH/MM3 Red Blood Count 2.51 MIL/MM3 Hemoglobin 8.4 GM/DL Hematocrit 25.7 % Mean Corpuscular Volume 102.3 FL Mean Corpuscular Hemoglobin 33.3 PG Mean Corpuscular Hemoglobin 32.6 % Concent Red Cell Distribution Width 15.6 % Platelet Count 50 TH/MM3 Mean Platelet Volume 8.8 FL Neutrophils (%) (Auto) 8.1 % Lymphocytes (%) (Auto) 90.0 % Monocytes (%) (Auto) 0.8 % Eosinophils (%) (Auto) 0.9 % Basophils (%) (Auto) 0.2 % Neutrophils # (Auto) 0.5 TH/MM3 Lymphocytes # (Auto) 6.0 TH/MM3 Monocytes # (Auto) 0.1 TH/MM3 Eosinophils # (Auto) 0.1 TH/MM3 Basophils # (Auto) 0.0 TH/MM3 CBC Comment AUTO DIFF Differential Total Cells 100 Counted Neutrophils % (Manual) 7 % Lymphocytes % 89 % Monocytes % 1 % Eosinophils % 3 % Neutrophils # (Manual) 0.5 TH/MM3 Differential Comment FINAL DIFF MANUAL Smudge Cells PRESENT Platelet Estimate LOW Platelet Morphology Comment NORMAL Ovalocytes 1+ Culture Results Microbiology Date/Time Procedure Status Source Growth 06/30/16 03:05 Aerobic Blood Culture - Preliminary Resulted Blood Peripheral NO GROWTH IN 1 DAY 06/30/16 03:05 Anaerobic Blood Culture - Preliminary Resulted Blood Peripheral NO GROWTH IN 1 DAY 06/30/16 03:10 Aerobic Blood Culture - Preliminary Resulted Blood Peripheral NO GROWTH IN 1 DAY 06/30/16 03:10 Anaerobic Blood Culture - Preliminary Resulted Blood Peripheral NO GROWTH IN 1 DAY 06/30/16 11:30 Legionella Antigen - Final Complete Urine Random Urine PRESUMPTIVE NEGATIVE FOR LEGIONELLA P... 06/30/16 11:30 Streptococcus pneumoniae Antigen (M - Final Complete Urine Random Urine PRESUMPTIVE NEGATIVE FOR STREPTOCOCCU... Administered Medications Medications (Trade) Dose Ordered Sig/Shwetha Route PRN Reason Start Time Stop Time Status Last Admin Dose Admin Sodium Chloride 2 ml 2 ml BID IV FLUSH 06/30/16 09:00 07/01/16 21:35 Cefepime HCl/ Sodium Chloride (Maxipime Inj/NS Inj) 100 ml @ 200 mls/hr Q12H IV 06/30/16 09:00 07/01/16 21:35 Amlodipine Besylate (Norvasc) 10 mg DAILY PO 06/30/16 09:00 07/01/16 09:34 Dorzolamide/ Timolol (Cosopt 2-0.5% Opt Soln) 1 drop BID LEFT EYE 06/30/16 09:00 07/01/16 21:35 Furosemide (Lasix) 20 mg DAILY PO 06/30/16 09:00 07/01/16 09:35 Gabapentin (Neurontin) 100 mg TID PO 06/30/16 09:00 07/01/16 17:18 Memantine (Namenda) 5 mg DAILY PO 06/30/16 09:00 07/01/16 09:34 Pantoprazole Sodium (Protonix) 40 mg DAILY PO 06/30/16 09:00 07/01/16 09:34 Docusate Sodium (Colace) 100 mg DAILY PO 06/30/16 09:00 07/01/16 09:34 Latanoprost (Xalatan 0.005% Opth Soln) 1 drop HS EACH EYE 06/30/16 21:00 07/01/16 21:35 Objective Remarks GENERAL: nad SKIN: Warm and dry. LYMPHATIC: No adenopathy. CARDIOVASCULAR: Regular rate and rhythm without murmurs. RESPIRATORY: Breath sounds equal bilaterally. No accessory muscle use. diminished breath sounds b/l bases GASTROINTESTINAL: Abdomen soft, non-tender, nondistended. EXTREMITIES: No cyanosis, or edema. Assessment/Plan Problem List: (1) Thrombocytopenia Status: Chronic (2) Lymphoproliferative disorder Status: Chronic (3) Anemia Status: Acute (4) ANABEL (iron deficiency anemia) Status: Acute (5) CLL (chronic lymphocytic leukemia) Status: Acute (6) Pneumonia Status: Acute (7) Weakness generalized Status: Acute Assessment 80-year-old female with a diagnosis of beatriz splenic marginal zone lymphoma who is currently being treated with single-agent Rituxan. She had lymphocytosis, splenomegaly, refractory anemia and lymphadenopathy and progressive fatigue. She received her last Rituxan treatment on Tuesday. She presented to the emergency room with acute dyspnea, cough and not feeling well. 1. Acute cough and dyspnea secondary to acute on chronic diastolic heart failure. She has elevated BNP. management per primary team 2. Community acquired Pneumonia: blood cultures no groath. continue IV abx. feeling better today 2. Splenic marginal zone lymphoma. counts stable 3. Anemia, hemoglobin continue to monitor My threshold for transfusion is 7.5 or less unless she is symptomatic. 4. Thrombocytopenia. Platelet count stable There is no evidence of bleeding. We will continue to monitor. Problem Qualifiers (1) Pneumonia: Qualified Code: J18.9 - Pneumonia of both lower lobes due to infectious organism Bartolo Hahn MD Jul 01, 2016 22:50
[2016-07-02] VITALS (7 sets, daily range): BP systolic 120–130; BP diastolic 55–65; PULSE 49–65; RESP 17–18; TEMP 97.2–97.7; O2SAT 95–99
[2016-07-02 06:12] LABS: HEMATOCRIT 24.9 % (35.0-46.0); MEAN CELL VOLUME 101.9 FL (80.0-100.0); MEAN CORPUSCULAR HEMOGLOBIN 34.1 PG (27.0-34.0); MEAN CORPUSCULAR HGB CONC 33.5 % (32.0-36.0); PLATELET COUNT 60 TH/MM3 (150-450); RED BLOOD COUNT 2.45 MIL/MM3 (4.00-5.30); RED CELL DISTRIBUTION WIDTH 15.1 % (11.6-17.2); WHITE BLOOD COUNT 10.9 TH/MM3 (4.0-11.0)
[2016-07-02 06:18] LABS: HEMO FLAGS AUTO DIFF
[2016-07-02 06:38] LABS: BICARBONATE 27.5 MEQ/L (21.0-32.0); MAGNESIUM 2.2 MG/DL (1.5-2.5); POTASSIUM 3.8 MEQ/L (3.5-5.1)
[2016-07-02] MEDS: INSULIN ASPART SUPPLEMENTAL SCALE SQ SCH ×2 (06:42→11:00)
[2016-07-02 07:51] LABS: NEUTROPHIL # MANUAL DIFF 0.8 TH/MM3 (1.8-7.7); POLYS (SEG NEUTROPHILS) 7 % (16-70); WBC DIFF SAMPLE 100
[2016-07-02 07:52] LABS: PLATELET ESTIMATE SMEAR LOW (NORMAL); PLATELET MORPHOLOGY NORMAL (NORMAL); SCAN/DIFF FINAL DIFF MANUAL; SMUDGE CELLS PRESENT PRESENT
[2016-07-02] MEDS: DOCUSATE SODIUM 100 MG CAP PO SCH (08:52)
[2016-07-02] MEDS: ASPIRIN EC 81 MG TABEC PO SCH (08:52)
[2016-07-02] MEDS: PANTOPRAZOLE SOD 40 MG DELAYED RELEASE TAB PO SCH (08:52)
[2016-07-02] MEDS: MEMANTINE HCL 5 MG TAB PO SCH (08:52)
[2016-07-02] MEDS: CEFEPIME INJ 2,000 MG in SODIUM CHLORIDE 0.9% INJ 100 ML IV SCH (08:52)
[2016-07-02] MEDS: GABAPENTIN 100 MG CAP PO SCH (08:52)
[2016-07-02] MEDS: FUROSEMIDE 20 MG TAB PO SCH (08:52)
[2016-07-02] MEDS: DORZOLAMIDE/TIMOLOL OPTH SOLN 10 ML BTL LEFT EYE SCH (08:53)
[2016-07-02] MEDS: SODIUM CHLORIDE 0.9% FLUSH 10 ML FLUSH IV FLUSH SCH (08:53)
[2016-07-02] MEDS ORDERED: METOPROLOL SUCCINATE 25 MG EXTENDED RELEASE TAB PO SCH (09:00)
--- NOTE | 2016-07-02 12:04 | PD.ONC.PN ---
Subjective Subjective Remarks Afebrile overnight. patient eager to know when she can go home. She feels she is breathing better today. She worked with PT earlier and walked around the floor. She says she feels stronger. Objective Data Date Time Temp Pulse Resp B/P Pulse Ox O2 Delivery O2 Flow Rate FiO2 07/02/16 08:42 97.2 52 18 130/58 98 07/02/16 08:00 51 07/02/16 04:00 97.7 65 18 120/65 96 07/02/16 02:13 52 18 125/59 07/02/16 00:00 97.3 55 17 126/60 99 07/01/16 20:06 56 07/01/16 20:00 97.6 54 17 124/58 98 07/01/16 16:00 96.6 54 18 120/57 98 07/01/16 12:42 96.1 53 18 113/55 98 Result Diagram: 07/02/16 0530 07/02/16 0530 Laboratory Results Laboratory Tests Test 07/02/16 05:30 White Blood Count 10.9 TH/MM3 Red Blood Count 2.45 MIL/MM3 Hemoglobin 8.4 GM/DL Hematocrit 24.9 % Mean Corpuscular Volume 101.9 FL Mean Corpuscular Hemoglobin 34.1 PG Mean Corpuscular Hemoglobin 33.5 % Concent Red Cell Distribution Width 15.1 % Platelet Count 60 TH/MM3 Mean Platelet Volume 9.3 FL Neutrophils (%) (Auto) % Lymphocytes (%) (Auto) % Monocytes (%) (Auto) % Eosinophils (%) (Auto) % Basophils (%) (Auto) % Neutrophils # (Auto) TH/MM3 Lymphocytes # (Auto) TH/MM3 Monocytes # (Auto) TH/MM3 Eosinophils # (Auto) TH/MM3 Basophils # (Auto) TH/MM3 CBC Comment AUTO DIFF Differential Total Cells 100 Counted Neutrophils % (Manual) 7 % Lymphocytes % 93 % Neutrophils # (Manual) 0.8 TH/MM3 Differential Comment FINAL DIFF MANUAL Smudge Cells PRESENT Platelet Estimate LOW Platelet Morphology Comment NORMAL Sodium Level 141 MEQ/L Potassium Level 3.8 MEQ/L Chloride Level 109 MEQ/L Carbon Dioxide Level 27.5 MEQ/L Anion Gap 5 MEQ/L Blood Urea Nitrogen 26 MG/DL Creatinine 0.85 MG/DL Estimat Glomerular Filtration 77 ML/MIN Rate Random Glucose 101 MG/DL Calcium Level 10.1 MG/DL Magnesium Level 2.2 MG/DL Culture Results Microbiology Date/Time Procedure Status Source Growth 06/30/16 03:05 Aerobic Blood Culture - Preliminary Resulted Blood Peripheral NO GROWTH IN 2 DAYS 06/30/16 03:05 Anaerobic Blood Culture - Preliminary Resulted Blood Peripheral NO GROWTH IN 2 DAYS 06/30/16 03:10 Aerobic Blood Culture - Preliminary Resulted Blood Peripheral NO GROWTH IN 2 DAYS 06/30/16 03:10 Anaerobic Blood Culture - Preliminary Resulted Blood Peripheral NO GROWTH IN 2 DAYS 06/30/16 11:30 Legionella Antigen - Final Complete Urine Random Urine PRESUMPTIVE NEGATIVE FOR LEGIONELLA P... 06/30/16 11:30 Streptococcus pneumoniae Antigen (M - Final Complete Urine Random Urine PRESUMPTIVE NEGATIVE FOR STREPTOCOCCU... Administered Medications Medications (Trade) Dose Ordered Sig/Shwetha Route PRN Reason Start Time Stop Time Status Last Admin Dose Admin Sodium Chloride 2 ml 2 ml BID IV FLUSH 06/30/16 09:00 07/02/16 08:53 Cefepime HCl/ Sodium Chloride (Maxipime Inj/NS Inj) 100 ml @ 200 mls/hr Q12H IV 06/30/16 09:00 07/02/16 08:52 Amlodipine Besylate (Norvasc) 10 mg DAILY PO 06/30/16 09:00 07/02/16 08:52 Aspirin (Ecotrin Ec) 81 mg DAILY PO 06/30/16 09:00 07/02/16 08:52 Dorzolamide/ Timolol (Cosopt 2-0.5% Opt Soln) 1 drop BID LEFT EYE 06/30/16 09:00 07/02/16 08:53 Furosemide (Lasix) 20 mg DAILY PO 06/30/16 09:00 07/02/16 08:52 Gabapentin (Neurontin) 100 mg TID PO 06/30/16 09:00 07/02/16 08:52 Memantine (Namenda) 5 mg DAILY PO 06/30/16 09:00 07/02/16 08:52 Pantoprazole Sodium (Protonix) 40 mg DAILY PO 06/30/16 09:00 07/02/16 08:52 Docusate Sodium (Colace) 100 mg DAILY PO 06/30/16 09:00 07/02/16 08:52 Latanoprost (Xalatan 0.005% Opth Soln) 1 drop HS EACH EYE 06/30/16 21:00 07/01/16 21:35 Metoprolol Succinate (Toprol Xl) 12.5 mg DAILY PO 07/02/16 09:00 07/02/16 08:53 Objective Remarks GENERAL: pleasant elderly female, sitting up in bed watching TV. On 0.5L O2 via NC SKIN: Warm and dry. HEAD: Normocephalic. EYES: No injection or drainage. NECK: Supple, trachea midline. CARDIOVASCULAR: Regular rate and rhythm RESPIRATORY: Breath sounds equal bilaterally. No accessory muscle use. GASTROINTESTINAL: Abdomen soft, non-tender, nondistended. EXTREMITIES: No cyanosis NEUROLOGICAL: No obvious focal deficit. Awake, alert, and oriented x3. Assessment/Plan Problem List: (1) Thrombocytopenia Status: Chronic (2) Lymphoproliferative disorder Status: Chronic (3) Anemia Status: Acute (4) ANABEL (iron deficiency anemia) Status: Acute (5) CLL (chronic lymphocytic leukemia) Status: Acute (6) Pneumonia Status: Acute (7) Weakness generalized Status: Acute Assessment 80-year-old female with a diagnosis of beatriz splenic marginal zone lymphoma who is currently being treated with single-agent Rituxan. She had lymphocytosis, splenomegaly, refractory anemia and lymphadenopathy and progressive fatigue. She received her last Rituxan treatment on Tuesday. She presented to the emergency room with acute dyspnea, cough and not feeling well. 1. Acute cough and dyspnea secondary to acute on chronic diastolic heart failure. breathing improved. primary team managing 2. Community acquired Pneumonia: blood cultures no growth. on IV Cefepime. BC no growth x 2 days. Continue antibiotics. 2. Splenic marginal zone lymphoma. monitor blood counts. follow up in clinic once discharged 3. Anemia: transfuse for hgb of 7.5 or less unless she is symptomatic. 4. Thrombocytopenia. monitor platelets. no transfusion needed at present. Attending Statement The exam, history, and the medical decision-making described in the above note were completed with the assistance of the mid-level provider. I reviewed and agree with the findings presented. I attest that I had a [id number] encounter with the patient on the same day, and personally performed and documented my assessment and findings in the medical record. Problem Qualifiers (1) Pneumonia: Qualified Code: J18.9 - Pneumonia of both lower lobes due to infectious organism Liberty Godfrey Jul 02, 2016 12:04 Bartolo aHhn MD July 23, 2016 23:32
--- NOTE | 2016-07-02 14:49 | HHI.DS ---
Discharge Summary Admission Date Jun 30, 2016 at 03:28 Discharge Date: Jul 02, 2016 Admitting Diagnosis Generalized weakness, pneumonia, on chemotherapy (1) Pneumonia ICD Code: J18.9 Diagnosis: Principal (2) Weakness generalized ICD Code: R53.1 Diagnosis: Principal Procedures none Brief History - From Admission History from patient with her daughter at the bedside, your physician communication, and review of medical records. Patient is known to me from her last hospitalization admission date. She reports that she came back to hospital today because for the past 1 week, she was having generalized weakness and at this point she feels that she is just not able to move her hands at all bilaterally. She also reports that she has had chemotherapy and her last dose was on Tuesday. According to the daughter who was at the bedside, patient was receiving chemotherapy about 4 times so far and pretty much the time, they had to stop the chemotherapy prematurely because of patient having low blood pressure or visual disturbance. She states that the chemotherapy regimen was then finally changed to the lowest regimen. She first received this low dose regimen on Tuesday. Apart from this generalized weakness, patient denies any vomiting/diarrhea/ urinary burning or pain on urination. She reports of no nausea. She does have chronic right upper extremity pain and she felt that she thought that swelling actually is there on her left side. Patient denies any diarrhea. Denies any vomiting. Denies seeing blood in her vomit or in stool. Upon further questioning, patient does complain of shortness of breath. She states she felt bloated as well particularly in her abdomen. She reports of night sweats which has been present for a while. Also reports of mild cough but states this was also going on and off. Patient reports her left lower extremity is also feeling tight and swelling. She's not sure how long she has had this. CBC/BMP: 07/02/16 0530 07/02/16 0530 Significant Findings Laboratory Tests Test 06/30/16 06/30/16 06/30/16 07/01/16 01:45 08:00 14:45 07:56 Red Blood Count 2.55 MIL/MM3 2.51 MIL/MM3 (4.00-5.30) (4.00-5.30) Hemoglobin 8.7 GM/DL 8.4 GM/DL (11.6-15.3) (11.6-15.3) Hematocrit 25.9 % 25.7 % (35.0-46.0) (35.0-46.0) Mean Corpuscular Volume 101.3 FL 102.3 FL (80.0-100.0) (80.0-100.0) Mean Corpuscular Hemoglobin 34.2 PG (27.0-34.0) Platelet Count 59 TH/MM3 50 TH/MM3 (150-450) (150-450) Neutrophils % (Manual) 14 % (16-70) 7 % (16-70) Lymphocytes % 83 % (9-44) 89 % (9-44) Neutrophils # (Manual) 0.7 TH/MM3 0.5 TH/MM3 (1.8-7.7) (1.8-7.7) Platelet Estimate LOW (NORMAL) LOW (NORMAL) Ovalocytes 1+ (NORMAL) 1+ (NORMAL) Activated Partial 23.6 SEC Thromboplast Time (24.3-30.1) Chloride Level 108 MEQ/L 109 MEQ/L (98-107) (98-107) Blood Urea Nitrogen 31 MG/DL (7-18) 22 MG/DL (7-18) Creatinine 1.13 MG/DL (0.50-1.00) Estimat Glomerular Filtration 56 ML/MIN (>89) 81 ML/MIN (>89) Rate Troponin I 0.08 NG/ML 0.07 NG/ML 0.07 NG/ML (0.02-0.05) (0.02-0.05) (0.02-0.05) B-Type Natriuretic Peptide 309 PG/ML (0-100) Albumin 3.1 GM/DL (3.4-5.0) Total Creatine Kinase 20 U/L (26-192) Neutrophils (%) (Auto) 8.1 % (16.0-70.0) Lymphocytes (%) (Auto) 90.0 % (9.0-44.0) Neutrophils # (Auto) 0.5 TH/MM3 (1.8-7.7) Lymphocytes # (Auto) 6.0 TH/MM3 (1.0-4.8) Test 4/28/17 05:30 Red Blood Count 2.45 MIL/MM3 (4.00-5.30) Hemoglobin 8.4 GM/DL (11.6-15.3) Hematocrit 24.9 % (35.0-46.0) Mean Corpuscular Volume 101.9 FL (80.0-100.0) Mean Corpuscular Hemoglobin 34.1 PG (27.0-34.0) Platelet Count 60 TH/MM3 (150-450) Neutrophils % (Manual) 7 % (16-70) Lymphocytes % 93 % (9-44) Neutrophils # (Manual) 0.8 TH/MM3 (1.8-7.7) Platelet Estimate LOW (NORMAL) Chloride Level 109 MEQ/L (98-107) Blood Urea Nitrogen 26 MG/DL (7-18) Estimat Glomerular Filtration 77 ML/MIN (>89) Rate Imaging Last Impressions Chest X-Ray 06/30/16 0138 Signed Impressions: Service Date/Time: Thursday, June 30, 2016 01:53 - CONCLUSION: There are new patchy infiltrates in both lung bases. Guillermo Blount MD Lower Extremity Ultrasound 06/30/16 0000 Signed Impressions: Service Date/Time: Thursday, June 30, 2016 05:13 - CONCLUSION: No evidence of DVT. No significant change compared to the prior study. Guillermo Blount MD PE at Discharge GENERAL: Well-developed well-nourished in no distress on nasal cannula SKIN: Warm and dry. HEAD: Atraumatic. Normocephalic. EYES: Pupils equal and round. No scleral icterus. No injection or drainage. ENT: No nasal bleeding or discharge. Mucous membranes pink and moist. NECK: Trachea midline. No JVD. CARDIOVASCULAR: Regular rate and rhythm. RESPIRATORY: No accessory muscle use. Decreased Breath sounds equal bilaterally. Crackles right base GASTROINTESTINAL: Abdomen soft, non-tender, nondistended. MUSCULOSKELETAL: Extremities without clubbing, cyanosis but with bilateral trace edema. No obvious deformities. NEUROLOGICAL: Awake and alert. No obvious cranial nerve deficits. Motor grossly within normal limits. Five out of 5 muscle strength in the arms and legs. Normal speech. Nonfocal PSYCHIATRIC: Appropriate mood and affect; insight and judgment normal. Hospital Course Generalized weakness/cough/shortness of breathsecondary to pneumonia. Improving. Physical therapy recommended home health care PT versus rehabilitation with wheeled walker. Bilateral pneumonia/airspace disease. Switch to Levaquin status post cefepime a sputum culture, urinary pneumococcal and Legionella antigen and follow-up blood cultures negative to date. Elevated BNP secondary to acute on chronic diastolic heart failure with hypoxia. Improved now on room air status post extra Lasix 20 mg IV 1 and continue by mouth Lasix. Repeat BMP and magnesium stable. CHF education, I/O and monitor weight. No DVT on Doppler sonogram Mild elevated troponin secondary to above. Patient denies chest pain. History of CAD. EKG with nonspecific T changes no change from previous. 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 Oncology consulted History of diabetes and hypertension. Continue outpatient medications as appropriate. Monitor fingerstick with sliding scale coverage DVT prophylaxis with SCD. Pharmacological prophylaxis contraindicated secondary to thrombocytopenia Pt Condition on Discharge: Stable Discharge Disposition: Disch w/ Home Health Serv Discharge Time: > 30 minutes Discharge Instructions DIET: Follow Instructions for: Heart Healthy Diet Activities you can perform: Regular-No Restrictions Activities to Avoid: Driving Follow up Referrals: PCP Follow-up - 2-3 Days New Orders: X-RAY CHEST PA & LAT - 6 Weeks New Medications: Levofloxacin (Levaquin) 750 Mg Tab 750 MG PO DAILY Infection #7 Ref 0 TAB Oxygen tank (Oxygen tank) 1 Ea Tank 2 LITER NICOLE.CANULA CONTINUOUS Oxygen Concentrator Portable Gaseous 2 L/min via Nasal Cannula Continuous For 99 months HYPOXEMIA PREVENTION #1 CYLINDER Walker with Front Wheels (Walker with Front Wheels) 1 Mis Mis 1 EA .ROUTE DIRECTED #1 Ref 0 EA Continued Medications: Alendronate (Fosamax) 70 Mg Tab 70 MG PO WEEKLY Osteoporosis Treatment #4 Ref 0 TAB Amlodipine (Amlodipine) 10 Mg Tab 10 MG PO DAILY Blood Pressure Management #[address] Ref [address] (Aspirin Adult Low Strength) 81 Mg Tabdr 81 MG PO DAILY TAB Docusate Sodium (Stool Softener) 100 Mg Cap 1 CAP PO DAILY Dorzolamide-Timolol Opth Drops (Dorzolamide-Timolol Opth Drops) 22.3-6.8 Mg/Ml Soln 1 DROP LEFT EYE BID Glaucoma Ref 0 BOTTLE Furosemide (Lasix) 20 Mg Tab 20 MG PO DAILY #30 Ref 0 TAB Gabapentin (Gabapentin) 100 Mg Cap 100 MG PO TID #90 Ref 0 CAP Lovastatin (Lovastatin) 40 Mg Tab 40 MG PO BID Cholesterol Management #30 Ref 0 TAB Memantine (Namenda) 5 Mg Tab 5 MG PO DAILY Alzheimer's Dementia #30 Ref 0 TAB Metformin (Metformin) 500 Mg Tab 500 MG PO BID With meals Blood Sugar Management #60 Ref 0 TAB Metoprolol Succinate ER 24 HR (Toprol XL) 25 Mg Tab 25 MG PO DAILY #30 Ref 0 TAB Nitroglycerin Patch 24 HR (Nitro-Dur Patch 24 HR) 0.1 Mg/Hr Patch 0.1 MG T-DERMAL DAILY Chest Pain #30 Ref 0 PATCH Nitroglycerin SL (Nitrostat SL) 0.4 Mg Subl 0.4 MG SL DIRECTED 1 tablet under the tongue as needed for chest pain. Repeat every 5 minutes for a total of 3 DOSES or call 911 if NO relief. PRN CHEST PAIN #100 Ref 0 TAB.SL Pantoprazole (Pantoprazole) 40 Mg Tab 40 MG PO DAILY Reflux #30 Ref 0 TAB Tizanidine (Tizanidine) 4 Mg Tab 4 MG PO HS Muscle Spasm Ref 0 TAB Tobramycin Opth Oint (Tobrex Opth Oint) 0.3 % Oint 1 APPLIC LEFT EYE TID Infection #1 Ref 0 TUBE Travoprost Opth Drops (Travatan Z Opth Drops) 0.004 % Soln 1 DROP EACH EYE HS Glaucoma #1 Ref 0 BOTTLE Jonatan Hollingsworth MD Jul 02, 2016 14:49
--- NOTE | 2016-07-03 19:35 | HM ---
Date Performed: 07/01/2016 Time Performed: 20:03:00 HOOKUP DATE: 07/01/16 08:03:00 PM Marley ANALYSIS START TIME: 07/01/2016 8:08:00 PM ANALYSIS END TIME: 07/02/2016 4:06:59 PM PATIENT AGE: 80 PATIENT HEIGHT: 64 PATIENT WEIGHT: 125 DRUG LIST PATIENT DIAGNOSIS: GENERALIZED WEAKNESS PNEUMONIA TEST NARRATIVE: The patient's average heart rate was 53 BPM. No episodes of tachycardia wer e noted. Heart rates less than 50 BPM were noted 59% of the time. 352 pauses exceeding 2.0 seco nds were noted. The longest pause of 2.3 seconds occurred at 03:16:42 AM Fri. 7 ventricular ectop ics, which represented < 1% of the total beat count, were noted. The highest ventricular ectopic chris quency occurred from 12:00 AM to 01:00 AM Fri. During this time 1 VE(s) occurred. Ventricular ectop ics were observed as 7 isolated beat(s) only. No couplets or runs were noted. 2 supraventricular ectopics, which represented < 1% of the total beat count, were noted. The highest supraventricular ectopic frequency occurred from 03:00 AM to 04:00 AM Fri. During this time 1 SVE(s) occurred. No episodes of ST depression (defined as -1.0 mm or more) were noted in channel 1. No episodes of ST d epression (defined as -1.0 mm or more) were noted in channel 2. No episodes of ST depression (define d as -1.0 mm or more) were noted in channel 3. TEST INTERPRETATION: Sinus rhythm Sinus bradycardia PVCs PACs, some with block Signed by : Kristi Garcia
== END 2016-07-02 16:50 | disposition home health service (06) | DRG 193 ==
LOC: NEPE 01:14 → NEDA 03:28 → HOCB 16:11
PROVIDERS: ADMIT Internal Medicine; ATTEND Internal Medicine
DX: J18.9 Pneumonia, unspecified organism (principal); I50.33 Acute on chronic diastolic (congestive) heart failure; C83.07 Small cell B-cell lymphoma, spleen; D69.6 Thrombocytopenia, unspecified; B02.30 Zoster ocular disease, unspecified; I11.0 Hypertensive heart disease with heart failure; G30.9 Alzheimer's disease, unspecified; F02.80 Dementia in other diseases classified elsewhere, unspecified severity, without behavioral disturbance, psychotic disturbance, mood disturbance, and anxiety; E11.9 Type 2 diabetes mellitus without complications; Z95.1 Presence of aortocoronary bypass graft; I44.0 Atrioventricular block, first degree; N28.9 Disorder of kidney and ureter, unspecified; Z87.442 Personal history of urinary calculi; I25.10 Atherosclerotic heart disease of native coronary artery without angina pectoris; M19.90 Unspecified osteoarthritis, unspecified site; R09.02 Hypoxemia; E78.5 Hyperlipidemia, unspecified; H54.62 Unqualified visual loss, left eye, normal vision right eye; Z88.0 Allergy status to penicillin; D50.9 Iron deficiency anemia, unspecified
CPT/HCPCS: 71010; 80048; 80053; 81001; 82550; 82948; 83605; 83690; 83735; 83880; 84443; 84484; 85007; 85027; 85610; 85730; 87040; 87449; 93005; 93225; 93226; 93970; 94620; 96361; 96367; 96374; 96375; 96413; 96415; C9113; J0692; J1100; J1626; J1642; J1940; J1956; J2405; J2780; J7030; J7040; J7050; J9310; Q0163

== ENCOUNTER 2018-01-15 18:33 | Observation (INO) ==
--- NOTE | 2018-01-15 19:10 | XR ---
EXAM DATE: 01/15/2018 7:04 PM EST AGE/SEX: 82 years / Female INDICATIONS: Chest pain CLINICAL DATA: This is the patient's initial encounter. Patient reports that signs and symptoms have been present for 1 day and indicates a pain score of Nonresponsive. MEDICAL/SURGICAL HISTORY: Non-responsive. Hypercholesterolemia. Hypertension. Gastroesophageal reflux disease. Kidney stones. Arthritis. Syncope. Parathyroid disease. Diabetes. Anxiety. Ovarian c ancer. Shingles. Non-responsive. SURGICAL HISTORY : CABG Appendectomy. Cholecystectomy. Hysterectomy COMPARISON: [facility] [place], 06/30/[place]. . 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 Mild basilar airspace disease. No effusion. N o pneumothorax. Heart size enlarged. Mild scoliosis. CONCLUSION: Mild basilar airspace disease. No significant effusion. Cardiomegaly. Electronically signed by: Damaso Chamberlain MD 01/15/2018 7:09 PM EST
[2018-01-15 19:17] LABS: Hematocrit 38.2 % (35.0-46.0); Hemoglobin 12.6 gm/dL (11.6-15.3); Mean Corpuscular HGB Conc 32.9 % (32.0-36.0); Mean Corpuscular Volume 91.3 fL (80.0-100.0); Mean Platelet Volume 10.9 fL (7.0-11.0); Platelet Count 114 th/mm3 (150-450); Red Blood Count 4.18 mil/mm3 (4.00-5.30); Red Cell Distribution Width 13.9 % (11.6-17.2); White Blood Count 17.2 th/mm3 (4.0-11.0)
[2018-01-15 19:36] LABS: Albumin 3.6 g/dL (3.4-5.0); Anion Gap 7 meq/L (5-15); Aspartate Aminotransferase 32 U/L (15-37); Blood Urea Nitrogen 22 mg/dL (7-18); Calcium 10.9 mg/dL (8.5-10.1); Carbon Dioxide 26.8 meq/L (21.0-32.0); Chloride 105 meq/L (98-107); Glomerular Filtration Rate 73 mL/min (>89); Glucose,Random 104 mg/dL (74-106); Magnesium 1.7 mg/dL (1.5-2.5); Sodium 139 meq/L (136-145)
[2018-01-15 19:37] LABS: Alanine Aminotransferase 107 U/L (10-53)
--- NOTE | 2018-01-15 19:41 | ED ---
HPI General Chief Complaint: Altered Mental Status Stated Complaint: Alter mental Time Seen by Provider: 01/15/18 18:47 Source: patient, family and EMS Mode of arrival: EMS Limitations: altered mental status History of Present Illness HPI narrative: 82-year-old female that presents to the altered mental status. Patient came by [facility] for evaluation of this. Patient has a known history of dementia and apparently for the past 2-3 days she has been becoming more altered per [facility] report. Per family patient has become more altered and today became more significantly altered. Apparently she was calling life alert and crying and being very anxious. She apparently is followed with Dr. Fu for neurology and was put on any medication recently. Per [facility] she was found to be hypertensive but currently she is not. She denies any medical symptoms herself. Per family no cold or fever symptoms. No urinary symptoms. Patient herself denies any symptoms. Patient denies any abdominal pain. No falls reported. No signs of trauma. History is very limited from the patient as patient herself is not a good historian. Most of the history is obtained from family as well as [facility]. Related Data Home Medications Medication Instructions Recorded Confirmed alendronate 70 mg PO QWEEK 01/15/18 01/15/18 amlodipine 5 mg PO DAILY 01/15/18 01/15/18 aspirin [Aspir-81] 81 mg PO DAILY 01/15/18 01/15/18 gabapentin 100 mg PO TID 01/15/18 01/15/18 memantine [Namenda] 10 mg PO BID 01/15/18 01/15/18 metformin 500 mg PO BID 01/15/18 01/15/18 metoprolol succinate 25 mg PO DAILY 01/15/18 01/15/18 nitroglycerin 1 patch TRANSDERMAL DAILY 01/15/18 01/15/18 tramadol 100 mg PO DAILY 01/15/18 01/15/18 Allergies Allergy/AdvReac Type Severity Reaction Status Date / Time penicillin G Allergy Severe Rash, SOB Verified 01/16/18 00:09 Review of Systems ROS: all other systems reviewed are negative PMFSH History History Provided By: Patient, Family Member and General Claims Agent / EMT Medical History Medical History Diabetes (Acute) HTN (hypertension) (Acute) Lymphoma in remission (Acute) Social History Social History Second Hand Smoke Exposure: No Smoking Status: Unknown if ever smoked How Often Do You Have a Drink Containing Alcohol: Unable to Obtain Recent Travel in [place] within the Last 8 Weeks: No Recent Out of Country Travel within the Last 8 Weeks: No Exam Narrative Exam Narrative: GENERAL: SKIN: Warm and dry. HEAD: Atraumatic. Normocephalic. EYES: Pupils equal and round. No scleral icterus. No injection or drainage. ENT: No nasal bleeding or discharge. Mucous membranes pink and moist. NECK: Trachea midline. No JVD. CARDIOVASCULAR: Regular rate and rhythm. RESPIRATORY: No accessory muscle use. Clear to auscultation. Breath sounds equal bilaterally. GASTROINTESTINAL: Abdomen soft, non-tender, nondistended. Hepatic and splenic margins not palpable. MUSCULOSKELETAL: Extremities without clubbing, cyanosis, or edema. No obvious deformities. Full ROM of the upper and lower extremities. 2+ pulses bilaterally. NEUROLOGICAL: Awake and alert. No obvious cranial nerve deficits. Motor grossly within normal limits. Five out of 5 muscle strength in the arms and legs. Normal speech. PSYCHIATRIC: Altered mood and affect; insight and judgment normal. Course Initial Documented Vital Signs Temperature 98.0 F 01/15/18 18:38 Pulse Rate 86 01/15/18 18:38 Respiratory Rate 16 01/15/18 18:38 Blood Pressure 167/80 H 01/15/18 18:38 Pulse Oximetry 97 01/15/18 18:38 Last Documented Vital Signs Temperature 97.7 F 01/16/18 04:00 Pulse Rate 52 L 01/16/18 04:00 Respiratory Rate 15 01/16/18 04:00 Blood Pressure 168/78 H 01/16/18 04:00 Pulse Oximetry 97 01/16/18 04:00 Medical Decision Making [facility] Narrative Medical decision making narrative: 82-year-old female that presents to the ED for evaluation of AMS. Patient was properly examined and was found to have signs and symptoms consistent with AMS. Labs and imaging were ordered. Labs and imaging showed leukocytosis of unclear etiology. Chest x-ray was read as mild vascular disease but there does appear to be what appears to be possible slight consolidation in the right side of the lung. Because of the patient's elevated white blood cell count recommendation is for admission for further evaluation of possible pneumonia. Case was discussed with my attending who agrees with plan. Case discussed with Dr. Castano who agrees to admission to her service. Case discussed with the family and patient who agree with admission plan. Medical Screen Exam Complete: Yes Emergency Medical Condition: Yes Differential Diagnosis Differential Diagnosis: AMS vs sepsis vs UTI vs CVA vs ACS Medical Records Medical records reviewed: Yes I reviewed the patient's medical records. Lab Data Lab results reviewed: Yes I reviewed the patient's lab results. Result diagrams: 01/16/18 03:50 01/16/18 03:50 Lab Results 01/15/18 01/15/18 01/15/18 Range/Units 19:03 19:03 19:03 WBC 17.2 H (4.0-11.0) th/mm3 RBC 4.18 (4.00-5.30) mil/mm3 Hgb 12.6 (11.6-15.3) gm/dL Hct 38.2 (35.0-46.0) % MCV 91.3 (80.0-100.0) fL MCH 30.0 (27.0-34.0) pg MCHC 32.9 (32.0-36.0) % RDW 13.9 (11.6-17.2) % Plt Count 114 L (150-450) th/mm3 MPV 10.9 (7.0-11.0) fL Prelim Diff (Auto) Slide review pending WBC Differential Manual diff final Seg Neuts % (Manual) 21 (16-70) % Lymphocytes % (Manual) 67 H (9-44) % Monocytes % (Manual) 11 H (0-8) % Basophils % (Manual) 1 (0-2) % Abs Neuts (Manual) 3.6 (1.8-7.7) th/mm3 Differential Comment . Smudge Cells Present H (None) Platelet Estimate Low L (Normal) Platelet Morphology Normal (Normal) RBC Morphology Normal (Normal) Sodium 139 (136-145) meq/L Potassium 4.0 (3.5-5.1) meq/L Chloride 105 (98-107) meq/L Carbon Dioxide 26.8 (21.0-32.0) meq/L Anion Gap 7 (5-15) meq/L BUN 22 H (7-18) mg/dL Creatinine 0.89 (0.50-1.00) mg/dL Estimated GFR 73 L (>89) mL/min POC Glucose (68-110) mg/dl Random Glucose 104 (74-106) mg/dL Calcium 10.9 H (8.5-10.1) mg/dL Magnesium 1.7 (1.5-2.5) mg/dL Total Bilirubin 0.9 (0.2-1.0) mg/dL AST 32 (15-37) U/L ALT 107 H (10-53) U/L Alkaline Phosphatase 168 H (45-117) U/L Ammonia 20 (11-32) mcmol/L Total Creatine Kinase (26-192) U/L Troponin I 0.03 (0.02-0.05) ng/mL Total Protein 6.7 (6.4-8.2) g/dL Albumin 3.6 (3.4-5.0) g/dL TSH 1.790 (0.358-3.740) uIU/mL Urine Color (Yellw/Straw) Urine Clarity (Clear) Urine pH (5.0-8.5) Ur Specific [place] (1.002-1.035) Urine Protein (Neg-Trace) mg/dL Urine Glucose (UA) (Negative) mg/dL Urine Ketones (Negative) mg/dL Urine Occult Blood (Negative) Urine Nitrate (Negative) Urine Bilirubin (Negative) Urine Urobilinogen (Less than 2) mg/dL Ur Leukocyte Esterase (Negative) Urine RBC (0-3) /hpf Urine WBC (0-5) /hpf Urine Mucus (Occasional) /lpf Micro UA Comment Ur Microscopic Review Urine Culture Comments 01/15/18 01/15/18 01/16/18 Range/Units 19:03 20:57 00:15 WBC (4.0-11.0) th/mm3 RBC (4.00-5.30) mil/mm3 Hgb (11.6-15.3) gm/dL Hct (35.0-46.0) % MCV (80.0-100.0) fL MCH (27.0-34.0) pg MCHC (32.0-36.0) % RDW (11.6-17.2) % Plt Count (150-450) th/mm3 MPV (7.0-11.0) fL Prelim Diff (Auto) WBC Differential Seg Neuts % (Manual) (16-70) % Lymphocytes % (Manual) (9-44) % Monocytes % (Manual) (0-8) % Basophils % (Manual) (0-2) % Abs Neuts (Manual) (1.8-7.7) th/mm3 Differential Comment Smudge Cells (None) Platelet Estimate (Normal) Platelet Morphology (Normal) RBC Morphology (Normal) Sodium (136-145) meq/L Potassium (3.5-5.1) meq/L Chloride (98-107) meq/L Carbon Dioxide (21.0-32.0) meq/L Anion Gap (5-15) meq/L BUN (7-18) mg/dL Creatinine (0.50-1.00) mg/dL Estimated GFR (>89) mL/min POC Glucose 80 (68-110) mg/dl Random Glucose (74-106) mg/dL Calcium (8.5-10.1) mg/dL Magnesium (1.5-2.5) mg/dL Total Bilirubin (0.2-1.0) mg/dL AST (15-37) U/L ALT (10-53) U/L Alkaline Phosphatase (45-117) U/L Ammonia (11-32) mcmol/L Total Creatine Kinase 131 (26-192) U/L Troponin I (0.02-0.05) ng/mL Total Protein (6.4-8.2) g/dL Albumin (3.4-5.0) g/dL TSH (0.358-3.740) uIU/mL Urine Color Yellow (Yellw/Straw) Urine Clarity Clear (Clear) Urine pH 6.0 (5.0-8.5) Ur Specific [place] 1.008 (1.002-1.035) Urine Protein Negative (Neg-Trace) mg/dL Urine Glucose (UA) Negative (Negative) mg/dL Urine Ketones Negative (Negative) mg/dL Urine Occult Blood Negative (Negative) Urine Nitrate Negative (Negative) Urine Bilirubin Negative (Negative) Urine Urobilinogen Less than 2 (Less than 2) mg/dL Ur Leukocyte Esterase Negative (Negative) Urine RBC Less than 1 (0-3) /hpf Urine WBC Less than 1 (0-5) /hpf Urine Mucus Few H (Occasional) /lpf Micro UA Comment Cath-culture not ind Ur Microscopic Review Not Reportable Urine Culture Comments Cath-cult not ind 01/16/18 01/16/18 Range/Units 03:50 03:50 WBC 12.9 H (4.0-11.0) th/mm3 RBC 3.99 L (4.00-5.30) mil/mm3 Hgb 12.0 (11.6-15.3) gm/dL Hct 37.1 (35.0-46.0) % MCV 93.1 (80.0-100.0) fL MCH 30.2 (27.0-34.0) pg MCHC 32.4 (32.0-36.0) % RDW 14.0 (11.6-17.2) % Plt Count 98 L (150-450) th/mm3 MPV 11.2 H (7.0-11.0) fL Prelim Diff (Auto) Manual diff required WBC Differential Seg Neuts % (Manual) (16-70) % Lymphocytes % (Manual) (9-44) % Monocytes % (Manual) (0-8) % Basophils % (Manual) (0-2) % Abs Neuts (Manual) (1.8-7.7) th/mm3 Differential Comment . Smudge Cells (None) Platelet Estimate (Normal) Platelet Morphology (Normal) RBC Morphology (Normal) Sodium 145 (136-145) meq/L Potassium 3.8 (3.5-5.1) meq/L Chloride 111 H (98-107) meq/L Carbon Dioxide 24.8 (21.0-32.0) meq/L Anion Gap 9 (5-15) meq/L BUN 19 H (7-18) mg/dL Creatinine 0.78 (0.50-1.00) mg/dL Estimated GFR 85 L (>89) mL/min POC Glucose (68-110) mg/dl Random Glucose 87 (74-106) mg/dL Calcium 10.5 H (8.5-10.1) mg/dL Magnesium (1.5-2.5) mg/dL Total Bilirubin 0.8 (0.2-1.0) mg/dL AST 30 (15-37) U/L ALT 88 H (10-53) U/L Alkaline Phosphatase 151 H (45-117) U/L Ammonia (11-32) mcmol/L Total Creatine Kinase (26-192) U/L Troponin I (0.02-0.05) ng/mL Total Protein 6.1 L D (6.4-8.2) g/dL Albumin 3.1 L (3.4-5.0) g/dL TSH (0.358-3.740) uIU/mL Urine Color (Yellw/Straw) Urine Clarity (Clear) Urine pH (5.0-8.5) Ur Specific [place] (1.002-1.035) Urine Protein (Neg-Trace) mg/dL Urine Glucose (UA) (Negative) mg/dL Urine Ketones (Negative) mg/dL Urine Occult Blood (Negative) Urine Nitrate (Negative) Urine Bilirubin (Negative) Urine Urobilinogen (Less than 2) mg/dL Ur Leukocyte Esterase (Negative) Urine RBC (0-3) /hpf Urine WBC (0-5) /hpf Urine Mucus (Occasional) /lpf Micro UA Comment Ur Microscopic Review Urine Culture Comments Imaging Data Attestation: I personally reviewed and interpreted this imaging study as follows : Radiologist's impression: Chest X-Ray 01/15/18 18:47 CONCLUSION: Mild basilar airspace disease. No significant effusion. Cardiomegaly. Head CT 01/15/18 18:47 CONCLUSION: 1. No acute intracranial abnormalities. . ECG Data Attestation: I personally reviewed and interpreted this ECG as follows: Interpretation: EKG shows sinus rhythm with no sign of acute ischemia and arrhythmia read by me and attending. Discharge Plan Discharge Disposition Patient Disposition: 30 Still Patient Discharge Details Diagnosis: Altered mental status, Pneumonia Physicians Team ED Provider: Noah Hendricks ED Midlevel Provider: Jeff Bond Primary Care Provider: Fadumo Sagastume Attending Provider: Malorie Duron Other Providers: [employer] Status ED Status: Left Department Discharge Information Discharge Date/Time: 01/15/18 23:41
[2018-01-15 19:46] LABS: Alkaline Phosphatase 168 U/L (45-117); Total Protein 6.7 g/dL (6.4-8.2); Troponin I 0.03 ng/mL (0.02-0.05)
[2018-01-15 21:02] LABS: Lymphocytes 67 % (9-44); Monocytes 11 % (0-8)
[2018-01-15 21:05] LABS: Platelet Morphology Normal (Normal); Smudge Cells Present
[2018-01-15 21:06] LABS: RBC Morphology Normal (Normal)
[2018-01-15 21:22] LABS: Bilirubin,Urine Negative (Negative); Clarity,Urine Clear (Clear); Color,Urine Yellow (Yellw/Straw); Glucose,Urine (UA) Negative (Negative); Leukocyte Esterase,Urine Negative (Negative); Mucus,Urine Few /lpf (Occasional); Nitrite,Urine Negative (Negative); Specific Gravity,Urine 1.008 (1.002-1.035)
--- NOTE | 2018-01-15 21:57 | CT ---
EXAM DATE: 01/15/2018 8:59 PM EST AGE/SEX: 82 years / Female INDICATIONS: Altered mental status; patient is confused and has difficulty answering questions. CLINICAL DATA: This is the patient's initial encounter. Patient reports that signs and symptoms have been present for 1 day and indicates a pain score of 0/10. MEDICAL/SURGICAL HISTORY: Diabetes. Hypertension. None. RADIATION DOSE: 56.35 CTDI (mGy) COMPARISON: [facility] [place], CT BRAIN W/O CONTRAST, 03/08/2016. . TECHNIQUE: CT of the head without contrast. Using automated exposure control and adjustment of the mA and/or kV according to patient size, radiation dose was kept as low as reasonably achievable to ob tain optimal diagnostic quality images. DICOM format image data is available electronically for revi ew and comparison. FINDINGS: Cerebrum: The ventricles are normal for age. No evidence of midline shift, mass lesion, hemorrhage or acute infarction. No extraaxial fluid collections are seen. Posterior Fossa: The cerebellum and brainstem are intact. The 4th ventricle is midline. The cerebe llopontine angle is unremarkable. Extracranial: The visualized portion of the orbits is intact. Skull: The calvaria is intact. No evidence of skull fracture. CONCLUSION: 1. No acute intracranial abnormalities. . Electronically signed by: Damaso Chamberlain MD 01/15/2018 9:56 PM EST
[2018-01-15] MEDS ORDERED: Acetaminophen 325 MG Tablet PO PRN (22:01)
[2018-01-15] MEDS ORDERED: Bisacodyl 10 MG Supp RECTAL PRN (22:01)
[2018-01-15] MEDS ORDERED: Dextrose 50% in Water 50 ML Vial IV.PUSH PRN (22:02)
--- NOTE | 2018-01-15 22:04 | P.HPIM ---
History of Present Illness Primary Care Physician: Fadumo Sagastume MD History of Present Illness: This is an 82-year-old female with a PMH of HTN, Hyperlipidemia, Lymphoma, DM and Dementia who was brought to the ER by EMS secondary to AMS. Per report, pt was found standing outside of her home yelling, neighbors called EMS. Unable to obtain any history from pt due to mental status. Upon EMS arrival, pt noted to be significantly hypertensive w/ BP 220's, on arrival BP 167/80, HR 86, O2 sat 97% on RA, Afebrile. WBC 17.2. Platelets 114, previously 155 on 2017. Chemistry essentially unremarkable. CXR with mild basilar airspace disease, no significant effusion, however per review of X-ray appears to have RLL consolidation. CT Head w/ no acute findings. - Diagnosis (1) Encephalopathy (2) Leukocytosis (3) DM (diabetes mellitus) (4) Thrombocytopenia Review of Systems PAST FAMILY HISTORY: Reviewed. No h/o DM or CAD unobtainable due to mental status PMFSH - History History Provided By: Patient, Family Member, Business Support Administrator / EMT - Medical History Medical History: Medical History (Last Updated 01/15/18 @ 21:08 by Heike Hernandez) Diabetes HTN (hypertension) Lymphoma in remission - Tobacco History Second Hand Smoke Exposure: No Smoking Status: Former smoker - Alcohol History How Often Do You Have a Drink Containing Alcohol: Never - Travel History Recent Travel in the [place] Within the Last 8 Weeks: No Recent Travel Out of the Country Within the Last 8 Weeks: No - Immunization History Tetanus Immunization: <5 Years Medications and Allergies Active Medications: Active Medications Acetaminophen (Tylenol) 650 mg PO Q4H PRN PRN Reason: Temp > 100.4 Al Hydroxide/Mg Hydroxide (Milk Of Juan C Liq) 30 ml PO Q12H PRN PRN Reason: Mild Constipation Bisacodyl (Dulcolax Supp) 10 mg RECTAL DAILY PRN PRN Reason: SEVERE CONSITIPATION Dextrose (D50w Vial) 50 ml IV.PUSH UNSCH PRN PRN Reason: PER HYPOGLYCEMIA PROTOCOL Glucagon (Glucagon Inj) 1 mg OTHER PRN PRN PRN Reason: for Hypoglycemia Protocol Levofloxacin/Dextrose (Levaquin 750 Mg Premix Inj) 150 mls @ 100 mls/hr IV.SIG Q24H USHA Sodium Chloride (Ns Inj) 1,000 mls @ 100 mls/hr IV.CONT .Q10H USHA Insulin Aspart (Novolog Insulin Correctional Sugar Inj) 0 unit SQ ACHS USHA; Protocol Lactulose (Lactulose Liq) 30 ml PO DAILY PRN PRN Reason: SEVERE CONSITIPATION Ondansetron HCl (Zofran Inj) 4 mg IV.PUSH Q6H PRN PRN Reason: NAUSEA OR VOMITING Senna/Docusate Sodium (Jade-Colace) 1 tab PO BID [facility] Sennosides (Senokot) 17.2 mg PO Q12H PRN PRN Reason: Moderate Constipation Allergies Allergy/AdvReac Type Severity Reaction Status Date / Time penicillin G Allergy Severe Rash, SOB Unverified 10/19/16 15:39 Home Medications Medication Instructions Recorded Confirmed Type alendronate 70 mg PO QWEEK 01/15/18 01/15/18 History amlodipine 5 mg PO DAILY 01/15/18 01/15/18 History aspirin [Aspir-81] 81 mg PO DAILY 01/15/18 01/15/18 History gabapentin 100 mg PO TID 01/15/18 01/15/18 History memantine [Namenda] 10 mg PO BID 01/15/18 01/15/18 History metformin 500 mg PO BID 01/15/18 01/15/18 History metoprolol succinate 25 mg PO DAILY 01/15/18 01/15/18 History nitroglycerin 1 patch TRANSDERMAL DAILY 01/15/18 01/15/18 History tramadol 100 mg PO DAILY 01/15/18 01/15/18 History Exam Vital signs: Vital Signs 01/15/18 18:38 01/15/18 21:06 Temperature 98.0 F Pulse Rate 86 Respiratory Rate 16 Blood Pressure 167/80 H Pulse Oximetry 97 98 Intake & Output 01/15/18 01/15/18 01/16/18 06:59 18:59 06:59 Weight 58.967 kg Narrative: PE: GENERAL: Elderly black female in no acute distress. SKIN: Focused skin assessment warm and dry. HEENT: PERRLA, EOMI. No scleral icterus or conjunctival pallor. No lid lag or facial droop. CARDIOVASCULAR: Regular rate and rhythm. No obvious murmurs to auscultation. No chest tenderness to palpation. RESPIRATORY: No obvious rhonchi or wheezing. Clear to auscultation. Breath sounds equal bilaterally. GASTROINTESTINAL: Abdomen soft, non-tender, nondistended. BS normal. MUSCULOSKELETAL: Extremities without clubbing, cyanosis, or edema. No obvious deformities. NEUROLOGICAL: Awake, alert. No focal neurologic deficits. Moving both upper and lower extremities spontaneously. PSYCHIATRIC: Appropriate mood and affect. Insight and judgment normal. Results - Labs CBC & Chem 7: 01/15/18 19:03 01/15/18 19:03 Labs: Short CBC 01/15/18 Range/Units 19:03 WBC 17.2 H (4.0-11.0) th/mm3 Hgb 12.6 (11.6-15.3) gm/dL Hct 38.2 (35.0-46.0) % Plt Count 114 L (150-450) th/mm3 BMP 01/15/18 19:03 Sodium 139 Potassium 4.0 Chloride 105 Carbon Dioxide 26.8 BUN 22 H Creatinine 0.89 Calcium 10.9 H Cardiac Enzymes 01/15/18 01/15/18 Range/Units 19:03 19:03 Total Creatine Kinase 131 (26-192) U/L Troponin I 0.03 (0.02-0.05) ng/mL Liver Function 01/15/18 Range/Units 19:03 Total Bilirubin 0.9 (0.2-1.0) mg/dL AST 32 (15-37) U/L ALT 107 H (10-53) U/L Alkaline Phosphatase 168 H (45-117) U/L Albumin 3.6 (3.4-5.0) g/dL Urine 01/15/18 Range/Units 20:57 Urine Color Yellow (Yellw/Straw) Urine Clarity Clear (Clear) Urine pH 6.0 (5.0-8.5) Ur Specific [place] 1.008 (1.002-1.035) Urine Protein Negative (Neg-Trace) mg/dL Urine Glucose (UA) Negative (Negative) mg/dL - Imaging Impressions Chest X-Ray 01/15/18 18:47 CONCLUSION: Mild basilar airspace disease. No significant effusion. Cardiomegaly. Head CT 01/15/18 18:47 CONCLUSION: 1. No acute intracranial abnormalities. . Caprini VTE Risk Assessment Caprini VTE Risk Assessment: No/Low Risk (score <= 1) Caprini Risk Assessment Model: Point Value = 1 Point Value = 2 Point Value = 3 Point Value = 5 Age 41-60 Minor surgery BMI > 25 kg/m2 Swollen legs Varicose veins or History of unexplained or recurrent spontaneous Oral contraceptives or hormone replacement Sepsis (< 1 month) Serious lung disease, including pneumonia (< 1 month) Abnormal pulmonary function Acute myocardial infarction Congestive heart failure (< 1 month) History of inflammatory bowel disease Medical patient at bed rest Age 61-74 Arthroscopic surgery Major open surgery (> 45 min) Laparoscopic surgery (> 45 min) Malignancy Confined to bed (> 72 hours) Immobilizing plaster cast Central venous access Age >= 75 History of VTE Family history of VTE Factor V Leiden Prothrombin [id number] Lupus anticoagulant Anticardiolipin antibodies Elevated serum homocysteine Heparin-induced thrombocytopenia Other congenital or acquired thrombophilia Stroke (< 1 month) Elective arthroplasty Hip, pelvis, or leg fracture Acute spinal cord injury (< 1 month) Prophylaxis Regimen: Total Risk Factor Score Risk Level Prophylaxis Regimen 0-1 Low Early ambulation 2 Moderate Order ONE of the following: *Sequential Compression Device (SCD) *Heparin 5000 units SQ BID 3-4 Higher Order ONE of the following medications: *Heparin 5000 units SQ TID *Enoxaparin/Lovenox 40 mg SQ daily (WT < 150 kg, CrCl > 30 mL/min) *Enoxaparin/Lovenox 30 mg SQ daily (WT < 150 kg, CrCl > 10-29 mL/min) *Enoxaparin/Lovenox 30 mg SQ BID (WT < 150 kg, CrCl > 30 mL/min) AND/OR *Sequential Compression Device (SCD) 5 or more Highest Order ONE of the following medications: *Heparin 5000 units SQ TID (Preferred with Epidurals) *Enoxaparin/Lovenox 40 mg SQ daily (WT < 150 kg, CrCl > 30 mL/min) *Enoxaparin/Lovenox 30 mg SQ daily (WT < 150 kg, CrCl > 10-29 mL/min) *Enoxaparin/Lovenox 30 mg SQ BID (WT < 150 kg, CrCl > 30 mL/min) AND *Sequential Compression Device (SCD) Assessment and Plan - Assessment (1) Encephalopathy Code(s): G93.40 - Encephalopathy, unspecified Status: Acute (2) Leukocytosis Code(s): D72.829 - Elevated white blood cell count, unspecified Status: Acute (3) DM (diabetes mellitus) Code(s): E11.9 - Type 2 diabetes mellitus without complications Status: Acute (4) Thrombocytopenia Code(s): D69.6 - Thrombocytopenia, unspecified Status: Acute - Plan A/P: 1. Encephalopathy: likely multifactorial-combination of underlying Dementia, acute hypertensive encephalopathy and acute PNA. Admit for Observation, Neuro Checks. CT Head w/ no acute findings, images reviewed. 2. Leukocytosis: WBC 17, afebrile. CXR w/ no acute findings, however per review of images, appears to have RLL consolidation. In light of leukocytosis and acute AMS, will treat for PNA w/ Levaquin IV. Repeat labs in am. 3. DM: Sliding scale w/ Accu-Cheks. 4. Thrombocytopenia: H/o Lymphoma w/ previous episodes of thrombocytopenia, following w/ Dr. Hahn in the past. Platelets 114, will monitor closely. Repeat labs in am. 5. DVT Prophylaxis: SCD/Teds 6. Social work for d/c planning as needed. 7. Case discussed w/ ER physician at length, labs/records/imaging reviewed by me.
[2018-01-15] MEDS: Sod Chloride 0.9% Inj 1,000 ML IV.CONT SCH (23:10)
[2018-01-16 04:41] LABS: Hematocrit 37.1 % (35.0-46.0); Mean Corpuscular HGB Conc 32.4 % (32.0-36.0); Mean Corpuscular Hemoglobin 30.2 pg (27.0-34.0); Mean Corpuscular Volume 93.1 fL (80.0-100.0); Mean Platelet Volume 11.2 fL (7.0-11.0); Platelet Count 98 th/mm3 (150-450); Red Blood Count 3.99 mil/mm3 (4.00-5.30); White Blood Count 12.9 th/mm3 (4.0-11.0)
[2018-01-16 05:00] LABS: Albumin 3.1 g/dL (3.4-5.0); Anion Gap 9 meq/L (5-15); Aspartate Aminotransferase 30 U/L (15-37); Blood Urea Nitrogen 19 mg/dL (7-18); Calcium 10.5 mg/dL (8.5-10.1); Carbon Dioxide 24.8 meq/L (21.0-32.0); Chloride 111 meq/L (98-107); Glomerular Filtration Rate 85 mL/min (>89); Glucose,Random 87 mg/dL (74-106); Potassium 3.8 meq/L (3.5-5.1); Sodium 145 meq/L (136-145)
[2018-01-16 05:05] LABS: Alanine Aminotransferase 88 U/L (10-53); Alkaline Phosphatase 151 U/L (45-117); Total Protein 6.1 g/dL (6.4-8.2)
[2018-01-16] MEDS ORDERED: ALENDRONATE 70 MG PO SCH (08:30)
[2018-01-16 08:43] LABS: Lymphocytes 75 % (9-44); Monocytes 3 % (0-8); Myelocytes 1 % (0-0); Platelet Morphology Normal (Normal)
[2018-01-16 08:44] LABS: Smudge Cells Present
[2018-01-16] MEDS: Insulin NovoLOG Aspart Correctional Sugar Inj SQ SCH ×4 (08:59→22:51)
[2018-01-16] MEDS: Gabapentin 100 MG Capsule PO SCH ×3 (08:59→18:00)
[2018-01-16] MEDS: amLODIPine 5 MG Tablet PO SCH (08:59)
[2018-01-16] MEDS: Senna/Docusate Sodium 8.6/50 MG Tablet PO SCH ×2 (08:59→20:14)
[2018-01-16] MEDS: Sod Chloride 0.9% Inj 1,000 ML IV.CONT SCH ×2 (11:37→17:57)
--- NOTE | 2018-01-16 12:15 | ECG ---
Date Performed: 01/15/2018 Time Performed: 19:03:00 PTAGE: 82 years EKG: SINUS BRADYCARDIA WITH FIRST DEGREE AV BLOCK WITH OCCASIONAL SUPRAVENTRICULAR PREMATURE COM PLEXES LEFT VENTRICULAR HYPERTROPHY AND ST-T CHANGE INFERIOR MYOCARDIAL INFARCTION Since the previous tracing, no significant change noted ABNORMAL ECG PREVIOUS TRACING : 06/30/2016 14.50 DOCTOR: Ian Paz Interpretating Date/Time 01/16/2018 12:09:52
--- NOTE | 2018-01-16 13:12 | P.PN ---
Subjective Interval history: Follow up for AMS: pt. seen and examined, awake, oriented x 2. No cp, no sob, eating breakfast okay. BP elevated. No fever, no acute changes overnight. Physical Exam Vital signs: Vital Signs 01/15/18 18:38 01/15/18 21:06 01/15/18 23:08 Temperature 98.0 F Pulse Rate 86 50 L Respiratory Rate 16 16 Blood Pressure 167/80 H 175/83 H Pulse Oximetry 97 98 01/15/18 23:38 01/16/18 00:00 01/16/18 04:00 Temperature 97.3 F L 97.7 F Pulse Rate 50 L 52 L 52 L Respiratory Rate 16 16 15 Blood Pressure 165/79 H 121/65 168/78 H Pulse Oximetry 97 98 97 01/16/18 07:28 01/16/18 11:18 Temperature 98.3 F 98.0 F Pulse Rate 52 L 64 Respiratory Rate 16 16 Blood Pressure 202/91 H 188/82 H Pulse Oximetry 95 96 Intake & Output 01/15/18 01/16/18 01/16/18 18:59 06:59 18:59 Intake Total 1000 / 1000 Output Total 800 / 800 Balance 200 / 200 Weight 58.967 kg Intake: IV 1000 / 1000 NS Inj 1,000 ML @ 100 mls/hr IV 1000 / 1000 .CONT .Q10H [facility] Rx#:[id number] Output: Urine 800 / 800 Other: Date of Last Bowel Movement 01/15/18 Narrative: GENERAL: Elderly black female in no acute distress. SKIN: Focused skin assessment warm and dry. HEENT: PERRLA, EOMI. No scleral icterus or conjunctival pallor. No lid lag or facial droop. CARDIOVASCULAR: Regular rate and rhythm. No obvious murmurs to auscultation. No chest tenderness to palpation. RESPIRATORY: No obvious rhonchi or wheezing. Clear to auscultation. Breath sounds equal bilaterally. GASTROINTESTINAL: Abdomen soft, non-tender, nondistended. BS normal. MUSCULOSKELETAL: Extremities without clubbing, cyanosis, or edema. No obvious deformities. NEUROLOGICAL: Awake, alert, oriented x 2. No focal neurologic deficits. Moving both upper and lower extremities spontaneously. PSYCHIATRIC: Appropriate mood and affect. Insight and judgment normal. - Urinary Catheter Management Straight Cath placed during this visit: no Reason for continuing: Not indwelling catheter Results - Labs CBC & Chem 7: 01/16/18 03:50 01/16/18 03:50 Laboratory Results - last 24 hr 01/15/18 01/15/18 01/15/18 19:03 19:03 19:03 WBC 17.2 H RBC 4.18 Hgb 12.6 Hct 38.2 MCV 91.3 MCH 30.0 MCHC 32.9 RDW 13.9 Plt Count 114 L MPV 10.9 Prelim Diff (Auto) Slide review pending WBC Differential Manual diff final Seg Neuts % (Manual) 21 Lymphocytes % (Manual) 67 H Monocytes % (Manual) 11 H Basophils % (Manual) 1 Myelocytes % (Man) Abs Neuts (Manual) 3.6 Differential Comment . Smudge Cells Present H Platelet Estimate Low L Platelet Morphology Normal RBC Morphology Normal Sodium 139 Potassium 4.0 Chloride 105 Carbon Dioxide 26.8 Anion Gap 7 BUN 22 H Creatinine 0.89 Estimated GFR 73 L POC Glucose Random Glucose 104 Calcium 10.9 H Magnesium 1.7 Total Bilirubin 0.9 AST 32 ALT 107 H Alkaline Phosphatase 168 H Ammonia 20 Total Creatine Kinase Troponin I 0.03 Total Protein 6.7 Albumin 3.6 TSH 1.790 Urine Color Urine Clarity Urine pH Ur Specific [place] Urine Protein Urine Glucose (UA) Urine Ketones Urine Occult Blood Urine Nitrate Urine Bilirubin Urine Urobilinogen Ur Leukocyte Esterase Urine RBC Urine WBC Urine Mucus Micro UA Comment Ur Microscopic Review Urine Culture Comments 01/15/18 01/15/18 01/16/18 19:03 20:57 00:15 WBC RBC Hgb Hct MCV MCH MCHC RDW Plt Count MPV Prelim Diff (Auto) WBC Differential Seg Neuts % (Manual) Lymphocytes % (Manual) Monocytes % (Manual) Basophils % (Manual) Myelocytes % (Man) Abs Neuts (Manual) Differential Comment Smudge Cells Platelet Estimate Platelet Morphology RBC Morphology Sodium Potassium Chloride Carbon Dioxide Anion Gap BUN Creatinine Estimated GFR POC Glucose 80 Random Glucose Calcium Magnesium Total Bilirubin AST ALT Alkaline Phosphatase Ammonia Total Creatine Kinase 131 Troponin I Total Protein Albumin TSH Urine Color Yellow Urine Clarity Clear Urine pH 6.0 Ur Specific [place] 1.008 Urine Protein Negative Urine Glucose (UA) Negative Urine Ketones Negative Urine Occult Blood Negative Urine Nitrate Negative Urine Bilirubin Negative Urine Urobilinogen Less than 2 Ur Leukocyte Esterase Negative Urine RBC Less than 1 Urine WBC Less than 1 Urine Mucus Few H Micro UA Comment Cath-culture not ind Ur Microscopic Review Not Reportable Urine Culture Comments Cath-cult not ind 01/16/18 01/16/18 01/16/18 03:50 03:50 08:57 WBC 12.9 H RBC 3.99 L Hgb 12.0 Hct 37.1 MCV 93.1 MCH 30.2 MCHC 32.4 RDW 14.0 Plt Count 98 L MPV 11.2 H Prelim Diff (Auto) Manual diff required WBC Differential Manual diff final Seg Neuts % (Manual) 21 Lymphocytes % (Manual) 75 H Monocytes % (Manual) 3 Basophils % (Manual) Myelocytes % (Man) 1 H Abs Neuts (Manual) 2.8 Differential Comment . Smudge Cells Present H Platelet Estimate Low L Platelet Morphology Normal RBC Morphology Sodium 145 Potassium 3.8 Chloride 111 H Carbon Dioxide 24.8 Anion Gap 9 BUN 19 H Creatinine 0.78 Estimated GFR 85 L POC Glucose 98 Random Glucose 87 Calcium 10.5 H Magnesium Total Bilirubin 0.8 AST 30 ALT 88 H Alkaline Phosphatase 151 H Ammonia Total Creatine Kinase Troponin I Total Protein 6.1 L D Albumin 3.1 L TSH Urine Color Urine Clarity Urine pH Ur Specific [place] Urine Protein Urine Glucose (UA) Urine Ketones Urine Occult Blood Urine Nitrate Urine Bilirubin Urine Urobilinogen Ur Leukocyte Esterase Urine RBC Urine WBC Urine Mucus Micro UA Comment Ur Microscopic Review Urine Culture Comments 01/16/18 11:59 WBC RBC Hgb Hct MCV MCH MCHC RDW Plt Count MPV Prelim Diff (Auto) WBC Differential Seg Neuts % (Manual) Lymphocytes % (Manual) Monocytes % (Manual) Basophils % (Manual) Myelocytes % (Man) Abs Neuts (Manual) Differential Comment Smudge Cells Platelet Estimate Platelet Morphology RBC Morphology Sodium Potassium Chloride Carbon Dioxide Anion Gap BUN Creatinine Estimated GFR POC Glucose 146 H Random Glucose Calcium Magnesium Total Bilirubin AST ALT Alkaline Phosphatase Ammonia Total Creatine Kinase Troponin I Total Protein Albumin TSH Urine Color Urine Clarity Urine pH Ur Specific [place] Urine Protein Urine Glucose (UA) Urine Ketones Urine Occult Blood Urine Nitrate Urine Bilirubin Urine Urobilinogen Ur Leukocyte Esterase Urine RBC Urine WBC Urine Mucus Micro UA Comment Ur Microscopic Review Urine Culture Comments - Imaging Impressions Chest X-Ray 01/15/18 18:47 CONCLUSION: Mild basilar airspace disease. No significant effusion. Cardiomegaly. Head CT 01/15/18 18:47 CONCLUSION: 1. No acute intracranial abnormalities. . Assessment and Plan - Assessment (1) Encephalopathy Code(s): G93.40 - Encephalopathy, unspecified Status: Acute (2) Leukocytosis Code(s): D72.829 - Elevated white blood cell count, unspecified Status: Acute (3) DM (diabetes mellitus) Code(s): E11.9 - Type 2 diabetes mellitus without complications Status: Chronic (4) Thrombocytopenia Code(s): D69.6 - Thrombocytopenia, unspecified Status: Chronic - Plan 82-year-old elderly -Uz[place] female presented with altered mental status , underlying history of dementia. Acute Encephalopathy: likely multifactorial-combination of underlying Dementia , acute hypertensive encephalopathy and acute PNA. CT of the head negative Continue with neuro checks -Physical therapy evaluation Leukocytosis: WBC 17, afebrile. CXR w/ no acute findings, however per review of images, appears to have RLL consolidation. In light of leukocytosis and acute AMS, will treat for PNA -Continue Levaquin -WBC trending down -Blood cultures negative Hypertension, blood pressure uncontrolled, up to 200 Resume Toprol, Norvasc -Add Vasotec 1.25 mg IV every 6 as needed systolic greater than 165 and diastolic greater than 90 Dementia Continue Namenda DM -Sliding scale w/ Accu-Cheks Thrombocytopenia: H/o Lymphoma w/ previous episodes of thrombocytopenia, following w/ Dr. Hahn in the past. Platelets 114>>98 -Follow CBC DVT Prophylaxis: SCD/Teds CM consult for HHC/PT Poss dc tomorrow CBC in a.m. Code Status: Full code Discussed Condition With: RN, pt, CM Discharge Planning: Poss dc home with HHC tomorrow (3) DM (diabetes mellitus) Qualifiers: Diabetes mellitus type: type 2
--- NOTE | 2018-01-16 13:13 | P.DCO ---
- Diagnosis (1) Altered mental status Status: Acute (2) Encephalopathy Status: Acute (3) Leukocytosis Status: Acute (4) Pneumonia Status: Acute (5) Thrombocytopenia Status: Chronic - Physical Therapy Order: Evaluate and treat - Home Health Nursing Order: Medical education, Nursing assessment with vital signs - Case Management Consult Yes - Certification I have seen patient Romy Ramirez on 01/16/18. My clinical findings support the need for the requested home health care services because: Elderly patient, limited mobility, history of dementia. Deconditioned with increased weakness, Limited ability to care for self, Need for psychosocial assistance, Impaired cognition/judgement I certify that my clinical findings support that this patient is homebound because: Impaired cognitive ability/safety, Unsteady gait/balance, Unsafe to leave home unassisted (1) Altered mental status Qualifiers: Altered mental status type: unspecified Qualified Code(s): R41.82 - Altered mental status, unspecified (4) Pneumonia Qualifiers: Pneumonia type: due to unspecified organism Laterality: right Lung location : lower lobe of lung Qualified Code(s): J18.1 - Lobar pneumonia, unspecified organism
[2018-01-16] MEDS: hydrALAZINE 25 MG Tablet PO PRN (20:14)
[2018-01-17] MEDS: Sod Chloride 0.9% Inj 1,000 ML IV.CONT SCH ×2 (04:05→21:39)
[2018-01-17] MEDS: hydrALAZINE 25 MG Tablet PO PRN (06:39)
[2018-01-17] MEDS: Insulin NovoLOG Aspart Correctional Sugar Inj SQ SCH ×4 (08:07→21:39)
[2018-01-17] MEDS: amLODIPine 5 MG Tablet PO SCH (08:29)
[2018-01-17] MEDS: levoFLOXacin 500 MG Tablet PO SCH (08:29)
[2018-01-17] MEDS: Gabapentin 100 MG Capsule PO SCH ×3 (08:29→17:36)
[2018-01-17] MEDS: Senna/Docusate Sodium 8.6/50 MG Tablet PO SCH ×2 (08:30→20:29)
[2018-01-17] MEDS: hydrALAZINE 25 MG Tablet PO SCH ×3 (08:33→17:36)
[2018-01-17 11:17] LABS: Hematocrit 38.6 % (35.0-46.0); Hemoglobin 12.7 gm/dL (11.6-15.3); Mean Corpuscular HGB Conc 32.9 % (32.0-36.0); Mean Corpuscular Hemoglobin 30.2 pg (27.0-34.0); Mean Corpuscular Volume 91.9 fL (80.0-100.0); Mean Platelet Volume 10.9 fL (7.0-11.0); Platelet Count 113 th/mm3 (150-450); Red Blood Count 4.19 mil/mm3 (4.00-5.30); Red Cell Distribution Width 13.8 % (11.6-17.2)
[2018-01-17 11:42] LABS: Calcium 10.2 mg/dL (8.5-10.1); Carbon Dioxide 25.6 meq/L (21.0-32.0); Potassium 3.7 meq/L (3.5-5.1)
--- NOTE | 2018-01-17 14:28 | P.PN ---
Subjective Interval history: Follow up for AMS: pt. seen and examined, awake, oriented x 2. No cp, no sob. BP elevated. No complaints. States she lives alone. No acute changes overnight Physical Exam Vital signs: Vital Signs 01/16/18 15:28 01/16/18 19:22 01/17/18 00:41 Temperature 98.4 F Pulse Rate 68 62 60 Respiratory Rate 16 20 Blood Pressure 176/80 H 176/82 H 175/81 H Pulse Oximetry 97 99 01/17/18 06:26 01/17/18 07:22 01/17/18 11:24 Temperature 97.8 F 98.3 F Pulse Rate 58 L 57 L 64 Respiratory Rate 18 20 Blood Pressure 200/98 H 191/76 H 140/64 Pulse Oximetry 100 98 Intake & Output 01/16/18 01/17/18 01/17/18 18:59 06:59 18:59 Intake Total 1000 / 1000 1000 / 1000 Output Total 800 / 800 Balance 200 / 200 1000 / 1000 Intake: IV 1000 / 1000 1000 / 1000 NS Inj 1,000 ML @ 100 mls/hr IV 1000 / 1000 1000 / 1000 .CONT .Q10H [facility] Rx#:[id number] Output: Urine 800 / 800 Other: # Voids 3 # Urine Diapers 4 Date of Last Bowel Movement 01/16/18 01/16/18 # Bowel Movements 1 Narrative: GENERAL: Elderly black female in no acute distress. SKIN: Focused skin assessment warm and dry. HEENT: PERRLA, EOMI. No scleral icterus or conjunctival pallor. No lid lag or facial droop. CARDIOVASCULAR: Regular rate and rhythm. No obvious murmurs to auscultation. No chest tenderness to palpation. RESPIRATORY: No obvious rhonchi or wheezing. Clear to auscultation. Breath sounds equal bilaterally. GASTROINTESTINAL: Abdomen soft, non-tender, nondistended. BS normal. MUSCULOSKELETAL: Extremities without clubbing, cyanosis, or edema. No obvious deformities. NEUROLOGICAL: Awake, alert, oriented x 2. No focal neurologic deficits. Moving both upper and lower extremities spontaneously. PSYCHIATRIC: Appropriate mood and affect. Insight and judgment normal. - Urinary Catheter Management Straight Cath placed during this visit: no Reason for continuing: Not indwelling catheter Results - Labs CBC & Chem 7: 01/17/18 10:45 01/17/18 10:45 Laboratory Results - last 24 hr 01/16/18 01/16/18 01/17/18 17:11 22:46 08:07 WBC RBC Hgb Hct MCV MCH MCHC RDW Plt Count MPV Sodium Potassium Chloride Carbon Dioxide Anion Gap BUN Creatinine Estimated GFR POC Glucose 137 H 140 H 142 H Random Glucose Calcium 01/17/18 01/17/18 10:45 10:45 WBC 13.0 H RBC 4.19 Hgb 12.7 Hct 38.6 MCV 91.9 MCH 30.2 MCHC 32.9 RDW 13.8 Plt Count 113 L MPV 10.9 Sodium 143 Potassium 3.7 Chloride 110 H Carbon Dioxide 25.6 Anion Gap 7 BUN 18 Creatinine 0.89 Estimated GFR 73 L POC Glucose Random Glucose 174 H Calcium 10.2 H Assessment and Plan - Assessment (1) Encephalopathy Code(s): G93.40 - Encephalopathy, unspecified Status: Acute (2) Leukocytosis Code(s): D72.829 - Elevated white blood cell count, unspecified Status: Acute (3) DM (diabetes mellitus) Code(s): E11.9 - Type 2 diabetes mellitus without complications Status: Chronic (4) Thrombocytopenia Code(s): D69.6 - Thrombocytopenia, unspecified Status: Chronic - Plan 82-year-old elderly -Mauritian female presented with altered mental status , underlying history of dementia. Acute Encephalopathy: likely multifactorial-combination of underlying Dementia , acute hypertensive encephalopathy and acute PNA. CT of the head negative Continue with neuro checks -Physical therapy evaluation Leukocytosis: WBC 17, afebrile. CXR w/ no acute findings, however per review of images, appears to have RLL consolidation. In light of leukocytosis and acute AMS, will treat for PNA -Continue Levaquin -WBC trending down -Blood cultures negative Hypertension, blood pressure uncontrolled, up to 200 Continue with Toprol, Norvasc -Vasotec 1.25 mg IV every 6 as needed systolic greater than 165 and diastolic greater than 90 -add Hydralazine 25 mg PO TID Dementia Continue Namenda DM -Sliding scale w/ Accu-Cheks Thrombocytopenia: H/o Lymphoma w/ previous episodes of thrombocytopenia, following w/ Dr. Hahn in the past. 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 DVT Prophylaxis: SCD/Teds CM consult, SNF placement. Ready for dc to SNF when bed arrangements Code Status: Full code Discussed Condition With: RN, pt, CM Discharge Planning: Discharge to SNF when arrangements made (3) DM (diabetes mellitus) Qualifiers: Diabetes mellitus type: type 2
[2018-01-18] MEDS: Sod Chloride 0.9% Inj 1,000 ML IV.CONT SCH ×2 (01:20→09:15)
[2018-01-18 05:41] VITALS: RESP 18; O2SAT 100
[2018-01-18] MEDS: Insulin NovoLOG Aspart Correctional Sugar Inj SQ SCH ×2 (08:28→12:45)
[2018-01-18] MEDS: hydrALAZINE 25 MG Tablet PO SCH ×2 (09:00→13:59)
[2018-01-18] MEDS: levoFLOXacin 500 MG Tablet PO SCH (09:01)
[2018-01-18] MEDS: Senna/Docusate Sodium 8.6/50 MG Tablet PO SCH (09:01)
[2018-01-18] MEDS: Gabapentin 100 MG Capsule PO SCH ×2 (09:01→13:59)
[2018-01-18] MEDS: amLODIPine 5 MG Tablet PO SCH (09:01)
[2018-01-18] MEDS ORDERED: amLODIPine 5 MG Tablet PO SCH (09:49)
--- NOTE | 2018-01-18 09:55 | P.PN ---
Subjective Interval history: Follow up for AMS: pt. seen and examined, awake, oriented x 2. No cp, no sob. No fever. No complaints overnight. Blood pressure improved, one-time elevated to 190s otherwise trending down. Physical Exam Vital signs: Vital Signs 01/17/18 11:24 01/17/18 16:46 01/17/18 18:31 Temperature 98.3 F 98.4 F Pulse Rate 64 68 Respiratory Rate 20 20 Blood Pressure 140/64 188/81 H 169/79 H Pulse Oximetry 98 97 01/17/18 20:00 01/18/18 00:00 01/18/18 05:37 Temperature 98.5 F 98.2 F 98.7 F Pulse Rate 73 57 L 56 L Respiratory Rate 19 17 18 Blood Pressure 125/63 157/74 H 192/90 H Pulse Oximetry 100 97 100 01/18/18 07:34 Temperature 98.1 F Pulse Rate 60 Respiratory Rate 18 Blood Pressure 163/77 H Pulse Oximetry 100 Intake & Output 01/17/18 01/18/18 01/18/18 18:59 06:59 18:59 Intake Total 1000 / 1000 Balance 1000 / 1000 Intake: IV 1000 / 1000 NS Inj 1,000 ML @ 100 mls/hr IV 1000 / 1000 .CONT .Q10H [facility] Rx#:[id number] Other: # Voids 2 Date of Last Bowel Movement 01/17/18 Narrative: GENERAL: Elderly black female in no acute distress. SKIN: Focused skin assessment warm and dry. HEENT: PERRLA, EOMI. No scleral icterus or conjunctival pallor. No lid lag or facial droop. CARDIOVASCULAR: Regular rate and rhythm. No obvious murmurs to auscultation. No chest tenderness to palpation. RESPIRATORY: No obvious rhonchi or wheezing. Clear to auscultation. Breath sounds equal bilaterally. GASTROINTESTINAL: Abdomen soft, non-tender, nondistended. BS normal. MUSCULOSKELETAL: Extremities without clubbing, cyanosis, or edema. No obvious deformities. NEUROLOGICAL: Awake, alert, oriented x 2. No focal neurologic deficits. Moving both upper and lower extremities spontaneously. PSYCHIATRIC: Appropriate mood and affect. Insight and judgment normal. - Urinary Catheter Management Straight Cath placed during this visit: no Reason for continuing: Not indwelling catheter Results - Labs CBC & Chem 7: 01/17/18 10:45 01/17/18 10:45 Laboratory Results - last 24 hr 01/17/18 01/17/18 01/17/18 10:45 10:45 17:26 WBC 13.0 H RBC 4.19 Hgb 12.7 Hct 38.6 MCV 91.9 MCH 30.2 MCHC 32.9 RDW 13.8 Plt Count 113 L MPV 10.9 Sodium 143 Potassium 3.7 Chloride 110 H Carbon Dioxide 25.6 Anion Gap 7 BUN 18 Creatinine 0.89 Estimated GFR 73 L POC Glucose 137 H Random Glucose 174 H Calcium 10.2 H 01/17/18 01/18/18 01/18/18 21:31 04:09 08:26 WBC RBC Hgb Hct MCV MCH MCHC RDW Plt Count MPV Sodium Potassium Chloride Carbon Dioxide Anion Gap BUN Creatinine Estimated GFR POC Glucose 169 H 116 H 109 Random Glucose Calcium Assessment and Plan - Assessment (1) Encephalopathy Code(s): G93.40 - Encephalopathy, unspecified Status: Acute (2) Leukocytosis Code(s): D72.829 - Elevated white blood cell count, unspecified Status: Acute (3) DM (diabetes mellitus) Code(s): E11.9 - Type 2 diabetes mellitus without complications Status: Chronic (4) Thrombocytopenia Code(s): D69.6 - Thrombocytopenia, unspecified Status: Chronic - Plan 82-year-old elderly -E[place]ian female presented with altered mental status , underlying history of dementia. Acute Encephalopathy: likely multifactorial-combination of underlying Dementia , acute hypertensive encephalopathy and acute PNA. CT of the head negative Continue with neuro checks -Physical therapy evaluation Leukocytosis: WBC 17, afebrile. CXR w/ no acute findings, however per review of images, appears to have RLL consolidation. In light of leukocytosis and acute AMS, will treat for PNA -Continue Levaquin x2 more days -WBC trending down -Blood cultures negative Hypertension, blood pressure uncontrolled, up to 200 Continue with Toprol, Norvasc. We will increase Norvasc to 10 mg p.o. daily -Vasotec 1.25 mg IV every 6 as needed systolic greater than 165 and diastolic greater than 90 -Hydralazine 25 mg PO TID -Blood pressure much more improved Dementia Continue Namenda DM -Sliding scale w/ Accu-Cheks Thrombocytopenia: H/o Lymphoma w/ previous episodes of thrombocytopenia, following w/ Dr. Hahn in the past. 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 DVT Prophylaxis: SCD/Teds CM consult, SNF placement. Discharge to SNF today Follow-up with PCP Heart healthy diet Activity as tolerated Code Status: Full code Discussed Condition With: RN, patient, case management Discharge Planning: Discharge to SNF today when arrangements made (3) DM (diabetes mellitus) Qualifiers: Diabetes mellitus type: type 2
[2018-01-18 12:25] VITALS: BP 165/71; PULSE 64; TEMP 98.4
--- NOTE | 2018-01-20 18:20 | P.DS ---
Date of admission: 01/15/18 21:51 Primary care physician: Fadumo Sagastume MD Attending physician on discharge: Jonatan Hollingsworth Anticipated date of discharge: 01/18/18 Brief History from admission: This is an 82-year-old female with a PMH of HTN, Hyperlipidemia, Lymphoma, DM and Dementia who was brought to the ER by EMS secondary to AMS. Per report, pt was found standing outside of her home yelling, neighbors called EMS. Unable to obtain any history from pt due to mental status. Upon EMS arrival, pt noted to be significantly hypertensive w/ BP 220's, on arrival BP 167/80, HR 86, O2 sat 97% on RA, Afebrile. WBC 17.2. Platelets 114, previously 155 on 2017. Chemistry essentially unremarkable. CXR with mild basilar airspace disease, no significant effusion, however per review of X-ray appears to have RLL consolidation. CT Head w/ no acute findings. DS: Diagnosis - Discharge Diagnosis (1) Encephalopathy Status: Acute (2) Leukocytosis Status: Acute (3) DM (diabetes mellitus) Status: Chronic (4) Thrombocytopenia Status: Chronic DS: Summary Hospital Course: 82-year-old elderly -Ukrainian female presented with altered mental status , underlying history of dementia. Acute Encephalopathy: likely multifactorial-combination of underlying Dementia , acute hypertensive encephalopathy and acute PNA. CT of the head negative Continued with neuro checks -Physical therapy evaluation -neuro improved, back to baseline Leukocytosis: WBC 17, afebrile. CXR w/ no acute findings, however per review of images, appears to have RLL consolidation. In light of leukocytosis and acute AMS, was treated for PNA -Continued Levaquin -WBC trending down -Blood cultures negative -no fever. Hypertension, blood pressure uncontrolled, up to 200 Continued with Toprol, Norvasc. Increased Norvasc to 10 mg p.o. daily -Vasotec 1.25 mg IV every 6 as needed systolic greater than 165 and diastolic greater than 90 was added -Hydralazine 25 mg PO TID -Blood pressure improved Dementia Continued Namenda DM -Sliding scale w/ Accu-Cheks Thrombocytopenia: H/o Lymphoma w/ previous episodes of thrombocytopenia, following w/ Dr. Hahn in the past. 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 CM consult, SNF placement. Pt and family in agreement Pt. improved, back to baseline PT ordered Discharged to SNF Follow-up with PCP Heart healthy diet Activity as tolerated - Time Spent with Patient Total time spent providing and/or coordinating discharge services: 45 minutes Greater than 30 minutes - Quality: VTE Deep Vein Thrombosis/Pulmonary Embolism Present on Admission: No Results Procedures completed during hospitalization: none - Impressions ITS Impressions Chest X-Ray 01/15/18 18:47 CONCLUSION: Mild basilar airspace disease. No significant effusion. Cardiomegaly. Head CT 01/15/18 18:47 CONCLUSION: 1. No acute intracranial abnormalities. . Discharge Plan - Discharge Disposition Patient Disposition: 03 Discharge to SNF - Discharge Condition Condition: Stable - Discharge Order Discharge Orders: Discharge Order (Routine); Ordered 01/18/18 Ordered By: Mitra Leslie - Discharge Details Anticipated Discharge Date: 01/18/18 - Physicians Team Primary Care Provider: Fadumo Sagastume Attending Provider: Jonatan Hollingsworth Other Providers: Jacqui Osman ; Kim Serrano,Agency
== END 2018-01-18 16:50 ==
LOC: NEPC 18:33 → NEDA 18:33 → NEPHCDU 23:49
PROVIDERS: ADMIT Internal Medicine; ATTEND Internal Medicine
DX: Z87.891 Personal history of nicotine dependence; R94.31 Abnormal electrocardiogram [ECG] [EKG]; Z79.84 Long term (current) use of oral hypoglycemic drugs; F03.90 Unspecified dementia, unspecified severity, without behavioral disturbance, psychotic disturbance, mood disturbance, and anxiety; D69.6 Thrombocytopenia, unspecified; J18.1 Lobar pneumonia, unspecified organism; E11.9 Type 2 diabetes mellitus without complications; D72.829 Elevated white blood cell count, unspecified; Z79.83 Long term (current) use of bisphosphonates; I11.9 Hypertensive heart disease without heart failure; C85.90 Non-Hodgkin lymphoma, unspecified, unspecified site; G93.40 Encephalopathy, unspecified; E78.5 Hyperlipidemia, unspecified